=== PATIENT | male | born 1960 | race Caucasian/White ===

== ENCOUNTER 2024-01-27 08:48 | Outpatient (CLI) | payer BC, SELFPAY ==
--- NOTE | ~2024-01-27 | XR_ITS ---
Lumbosacral Spine: AP and lateral views Clinical History: Pain Findings: The normal lordotic curve is maintained. The vertebral bodies and posterior elements are i ntact. The intervertebral disc spaces are preserved. The sacroiliac joints are normally outlined. Impression: No significant abnormality. Reviewed, dictated and finalized at [facility]. Impression: No significant abnormality.
== END 2024-01-27 08:49 ==
PROVIDERS: PCP Physician Assistant; Visit Provider Physician Assistant
DX: M54.50 Low back pain, unspecified (principal); M25.561 Pain in right knee; M25.562 Pain in left knee
CPT/HCPCS: 72100; 73562

== ENCOUNTER 2024-04-06 08:28 | Outpatient (CLI) | payer BC, SELFPAY ==
--- NOTE | 2024-04-06 | EST_ITS ---
Patient Info Name: Ross Persaud Age: 63 years : 1960 Gender: Male Ht: 68 in Wt: 221 lbs BSA: 2.23 m2 HR: 74 bpm BP: 141 / 88 mmHg Heart Rhythm: Sinus Rhythm Exam Date: 04/06/2024 9:11 AM Exam Location: Echo Lab Patient Status: Outpatient Admit Date: 04/06/2024 Staff Ordering Physician: Ervin, Charlotte YODER Attending Provider: Ervin, Charlotte YODER Exercise Technologist: Katharine Blevins CT Exercise Physician: Payam Lazo DO Exam Type: CA stress raquel w NM Study Info Indications R06.09 - Other forms of dyspnea A regadenoson stress test was performed. Summary 1. 1. Negative lexiscan stress test for ischemic ST changes by ECG criteria. 2. 2. Stable hemodynamics throughout the test. 3. 3. Nuclear scan to follow and will be reported separately. Please correlate with it. 4. 4. Patient informed of the above results. Protocol: Lexiscan Stress ECG Details Stage: REST Duration (min): 1 min : 4 sec HR (bpm): 78 SBP (mmHg): 141 DBP (mmHg): 88 Stage: REST Duration (min): 1 min : 58 sec HR (bpm): 74 SBP (mmHg): 141 DBP (mmHg): 88 Stage: REST Duration (min): 7 min : 15 sec HR (bpm): 76 SBP (mmHg): 141 DBP (mmHg): 88 Stage: STAGE 1 Duration (min): 1 min : 0 sec HR (bpm): 96 SBP (mmHg): 124 DBP (mmHg): 85 Stage: RECOVERY Duration (min): 1 min : 0 sec HR (bpm): 89 SBP (mmHg): 124 DBP (mmHg): 85 Stage: RECOVERY Duration (min): 2 min : 0 sec HR (bpm): 81 SBP (mmHg): 124 DBP (mmHg): 85 Stage: RECOVERY Duration (min): 3 min : 0 sec HR (bpm): 81 SBP (mmHg): 135 DBP (mmHg): 81 Stage: RECOVERY Duration (min): 3 min : 6 sec HR (bpm): 80 SBP (mmHg): 135 DBP (mmHg): 81 Rest HR: 76 bpm Peak HR: 103 bpm Rest Sys BP: 141 mmHg Peak Sys BP: 135 mmHg Max Pred HR: 158 bpm % Max Pred HR: 65 % Target HR: 134 bpm Max RPP: 13,905 bpm*mmHg Termination Reason: Completed protocol Cardiac Symptoms: Shortness of breath Total Time: 1 min : 0 sec Rest Holden BP: 88 mmHg Peak Holden BP: 81 mmHg Total Dose: 0.4 mg Resting ECG Sinus rhythm. Stress ECG No ST changes. Arrhythmias None. Report Signatures
--- NOTE | ~2024-04-06 | NM_ITS ---
EXAMINATION: NM raquel stress w perfusion DATE: 04/07/2024 10:28 INDICATION: Dyspnea on exertion. TECHNIQUE: Rest images were obtained following intravenous administration of 10.3 mCi Tc99m tetrofosm in (Myoview). The patient was infused intravenously with Lexiscan (regadenoson). Then, 33 mCi Tc99m t etrofosmin (Myoview) was administered intravenously, and stress images were obtained. Data was recons tructed into short axis and horizontal and vertical long axis SPECT images. Gated SPECT images were a lso obtained. COMPARISON: None. FINDINGS: There is no definite reversible or fixed perfusion abnormality to suggest ischemia or infar ction. There is no segmental wall motion abnormality. Left ventricular ejection fraction measures 6 8%. IMPRESSION: 1. No definite ischemia or infarct. 2. Normal left ventricular ejection fraction measuring 68%. Reviewed, dictated and finalized at location A.
== END 2024-04-06 08:29 | disposition home or self-care (01) ==
PROVIDERS: PCP Physician Assistant; Visit Provider Physician Assistant
DX: R06.09 Other forms of dyspnea (principal)
CPT/HCPCS: 78452; 93017; A9502; J2785

== ENCOUNTER 2024-12-21 01:39 | Inpatient (IN) | payer BC, SELFPAY ==
[2024-12-21] VITALS (16 sets, daily range): BP systolic 83–170; BP diastolic 60–98; PULSE 82–117; RESP 13–30; TEMP 36.4–38.6; O2SAT 92–98; BMI 33.2; BMI 34.4
--- NOTE | ~2024-12-21 | XR_ITS ---
EXAMINATION: XR chest 1V portable DATE: 12/23/2024 05:44 INDICATION: Respiratory failure. Pulmonary edema. TECHNIQUE: frontal view of the chest was obtained. COMPARISON: Chest radiograph dated 12/22/[address] dated 12/21/2024 FINDINGS: Again seen is decreased right lung volume with diffuse hazy opacity in the mid and upper lung zone co nsistent with elevation the right hemidiaphragm and moderate-sized right pleural effusion which also tracks along the mediastinum and over the apex. Small left pleural effusion. Opacities at the bilater al lung bases which could represent associated atelectasis or pneumonia. No pneumothorax. Cardiac marcos houette partially obscured but does not appear enlarged for AP technique. Moderate thoracic spondylos is. IMPRESSION: 1. Unchanged moderate sized right and small left pleural effusions with associated basilar atelectasi s versus pneumonia. Reviewed, dictated and finalized at location A. IMPRESSION: 1. Unchanged moderate sized right and small left pleural effusions with associa nelson basilar atelectasis versus pneumonia.
--- NOTE | ~2024-12-21 | XR_ITS ---
Portable chest x-ray Comparison: 12/21/2024 Clinical History: Hypoxia Findings: Right IJ line in place. Small right pleural effusion present. Questionable minimal left pl eural effusion. Possible minimal bibasilar edema/atelectasis. Cardiomediastinal silhouette is stable . Bones and soft tissues are unremarkable. Impression: Small right pleural effusion and questionable minimal bibasilar pulmonary edema. Support line, as above. Reviewed, dictated and finalized at location M. Impression: Small right pleural effusion and questionable minimal bibasilar pulmonary edema . Support line, as above.
--- NOTE | ~2024-12-21 | XR_ITS ---
XR chest 1V portable Ordering provider: Bruna Eugene DO History: 63 years Male with . shortness of breath . Comparison: December 21, 2024 FINDINGS: MEDIASTINUM: The cardiac silhouette is not enlarged. LUNGS: No effusions or pneumothorax. Slightly improved aeration of the lower lobes with persistent re sidual opacification in both lung bases. OTHER: No free air under the diaphragm. Degenerative the spine. IMPRESSION: Bibasilar atelectasis versus pneumonia. Reviewed, dictated and finalized at location A.
--- NOTE | ~2024-12-21 | XR_ITS ---
[id number] Ordering provider: Donn Tillman MD History: 63 years Male with . POST THORA . Comparison: None. FINDINGS: MEDIASTINUM: The cardiac silhouette is not enlarged. LUNGS: No effusions or pneumothorax. Bilateral opacification in the lung bases suggestive of atelecta sis versus pneumonia. OTHER: No free air under the diaphragm. Degenerative spine. IMPRESSION: Bilateral basal pneumonia. Reviewed, dictated and finalized at location A. IMPRESSION: Bilateral basal pneumonia.
--- NOTE | ~2024-12-21 | US_ITS ---
EXAM: ABDOMEN ULTRASOUND HISTORY: Evaluation for acute cholecystitis COMPARISON: Reference is made to a contrast-enhanced CT examination of the abdomen and pelvis perform ed approximately 8 hours earlier which demonstrated acute pancreatitis. FINDINGS: LIVER: The liver is unremarkable in echogenicity and size. The portal vein is patent, demonstrating hepatopedal flow. GALLBLADDER: No stones are identified within the gallbladder, which is distended, with surrounding in tra-abdominal fluid (consistent with patient's current diagnosis of acute pancreatitis). BILE DUCTS: Common bile duct measures 3.7mm. PANCREAS: Limited evaluation of the pancreas secondary to overlying bowel gas VASCULATURE : The IVC is patent. What is designated as the superior mesenteric artery is also patent. Peak systolic velocity of the 181 cm/s with normal waveforms. The superior mesenteric vein is not demonstrated on the submitted images, which demonstrated signific ant surrounding inflammatory change on earlier CT examination. IMPRESSION: Gallbladder distention with intra-abdominal fluid, related to patient's acute pancreatitis, rather th an designated gallbladder disease. Requested evaluation of the superior mesenteric artery is also patent, as detailed above. Reviewed, dictated and finalized at location A. IMPRESSION: Gallbladder distention with intra-abdominal fluid, related to patient's acute p ancreatitis, rather than designated gallbladder disease. Requested evaluation of the superior mesenteric artery is also patent, as ravi led above.
--- NOTE | ~2024-12-21 | CT_ITS ---
CLINICAL INDICATION: Shortness of breath COMPARISON: Plain film evaluation of the chest performed approximately 8 hours earlier. TECHNIQUE: Multiple contiguous axial images of the chest was performed without the administration of intravenous contrast. This CT examination was performed utilizing dose reduction techniques. DLP: 377 mGy-cm FINDINGS/OBSERVATIONS: LUNG: Large right-sided pleural effusion with adjacent consolidation. Small left-sided pleural effusion with adjacent atelectasis. HEART: The heart is of normal size, with a small pericardial effusion. MEDIASTINUM: No pathologically enlarged or morphologically suspicious lymph nodes are identified within the medias tinum, bilateral axilla, within the soft tissues of the anterior chest wall. SOFT TISSUES OF THE CHEST: Unremarkable. BONES OF THE CHEST: No acute fracture. No lytic or blastic lesions are identified. UPPER ABDOMEN: Findings consistent with acute pancreatitis. Gallbladder distention. Left renal calculi. The inferior vena cava is slit like consistent with severe hypovolemia. IMPRESSION: Large right-sided pleural effusion with adjacent consolidation. Small left-sided pleural effusion with adjacent atelectasis. Additional findings consistent with severe hypovolemia. Reviewed, dictated and finalized at location A.
--- NOTE | ~2024-12-21 | US_ITS ---
EXAMINATION: US thoracentesis DATE: 12/21/2024 17:50 INDICATION: Right pleural effusion TECHNIQUE: The procedure and its risks and benefits were discussed with the patient. Potential risks discussed included bleeding, infection, and pneumothorax. The patient understood the risks and agreed to proceed. The skin was prepped and draped in sterile fashion. 1% lidocaine was used for local anes thesia. Under ultrasound guidance, a 5 Fr catheter with trochar was advanced into the right pleural e ffusion. Fluid was aspirated. The catheter was removed, and a dressing was applied. There were no imm ediate complications. FINDINGS: Ultrasound images demonstrate a small right pleural effusion and the catheter within the fluid. IMPRESSION: 1. Successful ultrasound-guided thoracentesis yielding 650 mL of dark milzrdsm-rnlxyd-axznpgm fluid. Reviewed, dictated and finalized at location A. IMPRESSION: 1. Successful ultrasound-guided thoracentesis yielding 650 mL of dark brownish -maroon-colored fluid.
--- NOTE | ~2024-12-21 | XR_ITS ---
XR chest 1V portable 12/24/2024 05:32 Indication: Respiratory failure. Pulmonary edema. Procedure: AP portable chest Comparison: Comparison to multiple prior studies sequentially, with oldest reviewed study dated 12/21. Findings: Cardiomegaly. Mild interstitial edema. Moderate right and small left pleural effusions. Sha llow inspiration. Central line tip in the SVC near the cavoatrial junction. Impression: 1: Mild interstitial edema with bilateral pleural effusions, right greater than left. Reviewed, dictated and finalized at location A. Impression: 1: Mild interstitial edema with bilateral pleural effusions, right greater than left.
--- NOTE | ~2024-12-21 | CT_ITS ---
EXAMINATION: CT chest abdomen pelvis wo con DATE: 12/24/2024 9:53 CDT INDICATION: Pancreatitis. Small bowel obstruction. TECHNIQUE: Computed tomography (CT) of the chest, abdomen, and pelvis was performed without intraveno us contrast. The dose-length product was 1292.70 mGy-cm. Automated exposure control and iterative rec onstruction technique were employed. COMPARISON: CT dated 12/21/2024 FINDINGS: CHEST CT: Small pleural effusions. Patchy groundglass opacities in the lungs, consistent with pneumonia. There is compressive atelectasis by the effusions. No pneumothorax. ABDOMEN/PELVIS CT: There is ascites. Significant progression of pancreatitis with abnormal mesenteric fluid developing a long the margin of the liver and surrounding the stomach. Cannot exclude developing abscess without c ontrast administration. There is dilated small bowel containing fluid which may represent ileus or pa rtial obstruction. The colon is relatively decompressed. There is atherosclerosis of the aorta. No fr ee air. There is a left renal cyst. IMPRESSION: 1. Significant progression of pancreatitis with developing fluid in the mesentery as well as along th e margin of the liver and stomach. Cannot exclude underlying abscess or pancreatic necrosis without c ontrast administration. 2: Patchy groundglass opacities in the lungs, consistent with pneumonia. Moderate pleural effusions w ith underlying compressive atelectasis. 3: Dilated small bowel with air-fluid levels which may represent obstruction or ileus. Reviewed, dictated and finalized at location A. IMPRESSION: 1. Significant progression of pancreatitis with developing fluid in the mesente ry as well as along the margin of the liver and stomach. Cannot exclude underly ing abscess or pancreatic necrosis without contrast administration. 2: Patchy groundglass opacities in the lungs, consistent with pneumonia. Modera te pleural effusions with underlying compressive atelectasis. 3: Dilated small bowel with air-fluid levels which may represent obstruction or ileus.
--- NOTE | ~2024-12-21 | XR_ITS ---
Portable chest x-ray Comparison: 01/28/2004 Clinical History: Shortness of breath Findings: Probable minimal bibasilar pulmonary edema/atelectasis. Elevation right hemidiaphragm note d. Cardiomediastinal silhouette is stable. Bones and soft tissues are unremarkable. Impression: Probable minimal bibasilar pulmonary edema/atelectasis. Elevation right hemidiaphragm. Reviewed, dictated and finalized at location . Impression: Probable minimal bibasilar pulmonary edema/atelectasis. Elevation right hemidiaphragm.
--- NOTE | ~2024-12-21 | CT_ITS ---
CT of the Abdomen and Pelvis: Indication: Abdominal pain Technique: 2.5 mm axial scans were obtained through the abdomen and pelvis following intravenous adm inistration of 100 cc of Omnipaque 350. Dose reduction technique was used on this scan by utilizing a utomated exposure control and iterative reconstruction technique. The dose-length product (DLP) was 1 051.69 mGy-cm. Findings: Scans through the lung bases demonstrate small right pleural effusion and minimal left ple ural effusion with mild bibasilar pulmonary edema/atelectasis. There is extensive peripancreatic fluid and inflammatory change, compatible with acute pancreatitis. Fluid extends into the right lower quadrant mildly. There is gallbladder wall thickening, nonspecific , possibly reactive. There is extensive soft tissue thickening or inflammatory change/fluid surroundi ng the SMV and main portal vein in particular.. The liver, spleen, adrenal glands are within normal limits. 3 mm nonobstructing right renal stone pre sent. There is a 6 cm left renal cyst with an area of apparent focal mural nodularity measuring 1.3 c m (axial image 62). There are atherosclerotic calcifications of the aorta. No lymphadenopathy. No bowel obstruction or bowel wall thickening. There is no evidence to suggest acute appendicitis. Images through the pelvis were performed. Urinary bladder unremarkable. No pelvic mass seen. Trace pe lvic ascites present. Impression: Findings compatible with acute pancreatitis, as detailed above. Extensive apparent soft tissue thickening or inflammatory change surrounding the SMV and main portal vein in particular. Superimposed/associated vasculitis is a consideration. No pseudoaneurysm/aneurysm identified on this exam. Small right pleural effusion and minimal left pleural effusion with mild bibasilar pulmonary edema/at electasis. Gallbladder wall thickening is likely reactive. 6 cm left renal cyst with 1.3 cm area of mural nodularity. Neoplastic lesion is not excluded. Pre and postcontrast renal MR advised to best assess for enhancing soft tissue lesion. Reviewed, dictated and finalized at location M. Impression: Findings compatible with acute pancreatitis, as detailed above. Extensive apparent soft tissue thickening or inflammatory change surrounding th e SMV and main portal vein in particular. Superimposed/associated vasculitis is a consideration. No pseudoaneurysm/aneurysm identified on this exam. Small right pleural effusion and minimal left pleural effusion with mild bibasi lar pulmonary edema/atelectasis. Gallbladder wall thickening is likely reactive. 6 cm left renal cyst with 1.3 cm area of mural nodularity. Neoplastic lesion is not excluded. Pre and postcontrast renal MR advised to best assess for enhanci ng soft tissue lesion.
--- NOTE | ~2024-12-21 | XR_ITS ---
XR chest port-a-cath/central Ordering provider: Bruna Eugene DO History: 63 years Male with . cvc placement . Comparison: December 21, 2024 FINDINGS: MEDIASTINUM: The cardiac silhouette is slightly enlarged. Right central line with the tip overlying s uperior vena cava. LUNGS: No effusions or pneumothorax. Bibasilar opacification suggestive of pneumonia. Underlying fibr otic changes highly suggestive. OTHER: No free air under the diaphragm. IMPRESSION: Bibasilar pneumonia. Reviewed, dictated and finalized at location A. IMPRESSION: Bibasilar pneumonia.
--- NOTE | 2024-12-21 01:43 | ECG_ITS ---
Test Date: 2024-12-21 01:43:40 Measurements Intervals Marked [place] Rate: 92 P: 43 CO: 180 QRS: -15 QRSD: 97 T: 52 QT: 358 QTc: 444 Interpretive Statements SINUS RHYTHM POSSIBLE LEFT ATRIAL ENLARGEMENT INCOMPLETE RIGHT BUNDLE BRANCH BLOCK MINIMAL Q WAVES- HIGH LATERAL LEADS BASELINE ARTIFACT- II, III, AVR, AVL, AVF, V1-V6 BORDERLINE ECG No previous ECG available for comparison Electronically Signed On 12-21-2024 07:57:20 CDT by Payam Lazo D.O.
[2024-12-21 02:08] LABS: Hemoglobin 15.1 g/dL (14.0-18.0); Mean Corpuscular HGB Conc 32.8 g/dl (32-36); Mean Corpuscular Hemoglobin 29.5 pg (26-34); Mean Corpuscular Volume 89.8 fl (80-100); Mean Platelet Volume 9.6 fl (7.4-10.4); Platelet Count Result 258 k/mm3 (150-375); Red Blood Count 5.12 M/mm3 (4.6-6.20); Red Cell Distribution Width 12.5 % (11.5-14.5)
[2024-12-21 02:31] LABS: Alanine Aminotransferase 493 U/L (6-50); Albumin Level 4.8 g/dL (3.5-5.1); Alkaline Phosphatase 108 U/L (38-126); Anion Gap 13 mmol/L (4-12); Aspartate Amino Transferase 512 U/L (17-59); Bilirubin,Total 0.8 mg/dL (0.2-1.3); Blood Urea Nitrogen 25 mg/dL (9-20); Calcium 8.6 mg/dL (8.4-10.2); Carbon Dioxide 24 mmol/L (22-30); Chloride 104 mmol/L (98-107); Estimated CRCL calculation 81 ml/min; Estimated Glomerular Filt Rate > 60; Glucose 218 mg/dL (65-110); Magnesium 2.2 mg/dL (1.6-2.3); Potassium 3.9 mmol/L (3.4-5.0); Sodium 141 mmol/L (137-145)
[2024-12-21 02:32] LABS: Band Neutrophils Percent 11 % (0-6); Lymphocytes Absolute Manual 0.84 K/mm3 (1.1-4.5); Monocytes Absolute Manual 1.05 K/mm3 (0.1-0.90); Monocytes Percent Manual 5 % (3-9); Neutrophils Absolute Manual 19.11 K/mm3 (1.3-6.7); Neutrophils Percent Manual 80 % (46-73); Platelet Estimate Adequate (Adequate); Schistocytes None Seen; Total Cells Counted 100
--- NOTE | 2024-12-21 02:38 | ED.GENADULT ---
HPI - General Adult General Chief complaint: Nausea/Vomiting/Diarrhea Stated complaint: n/v, sob History of Present Illness HPI narrative: Patient is a 63-year-old male who presents to the emergency department this evening complaining of sudden onset abdominal pain, nausea and vomiting which started around 8:30 p.m. last night. Patient states that he feels as though his abdomen is very distended which is unusual for him. Patient states that he had multiple episodes of vomiting and then shortly after that he started to have shortness of breath. Patient admits that he does have asthma and uses CPAP at home at night who patient states that his abdomen is usually never this distended. Denies any history of any abdominal surgeries, denies any alcohol abuse, history of pancreatitis. Patient denies sick contacts at home, any recent illness, fevers or chills. Denies any active chest pain. No additional symptoms or concerns at this time. Related Data Allergies Allergy/AdvReac Type Severity Reaction Status Date / Time Penicillins Allergy Unknown Verified 12/12/14 14:59 penicillin Allergy Unknown Uncoded 02/27/03 12:39 Review of Systems Review of Systems: All systems are reviewed and are negative unless stated otherwise in the HPI. [facility] Family History Family History Sibling Family history of thyroid disease Patient's brother is in good health Mother Patient's mother is in good health Father Carcinoma of colon Social History Social History Smoking status: Never smoker Alcohol intake: current Exam Narrative: General: Alert, awake, afebrile, in moderate distress secondary to pain. HEENT: PERRL, no rhinorrhea, no post nasal drip, oropharynx clear. Neck: Trachea midline, no JVD, no lymphadenopathy. Cardiovascular: Regular rate and rhythm, no murmurs, rubs or gallops, no peripheral edema. Respiratory: Clear to auscultation bilaterally, no tachypnea, no wheezing, no rhonchi, no rubs, no respiratory distress. Abdomen: Hard, mild tenderness, distended, no rebound, no guarding, no peritoneal signs. Musculoskeletal: No joint swelling or deformity, normal muscle tone. Skin: No rashes or petechia, no signs of infection. Psychiatric: Alert and oriented, normal behavior and judgment for situation. Neurological: Alert and oriented to person, place, and time. Follows all commands. No focal deficits, speech is clear and fluent. Course Vital Signs Vital signs: Vital Signs Temperature 98.5 F 12/21/24 01:40 Pulse Rate 92 12/21/24 01:40 Respiratory Rate 13 12/21/24 01:40 Blood Pressure 145/83 H 12/21/24 01:40 Pulse Oximetry 96 12/21/24 01:40 Oxygen Delivery Room Air 12/21/24 01:40 Temperature 98.5 F 12/21/24 01:49 Pulse Rate 88 12/21/24 03:59 Respiratory Rate 18 12/21/24 03:59 Blood Pressure 157/91 H 12/21/24 03:59 Pulse Oximetry 98 12/21/24 03:59 Oxygen Delivery Nasal Cannula 12/21/24 03:31 Oxygen Flow Rate 2 12/21/24 03:31 Medical Decision Making MDM Narrative Medical decision making narrative: The patient was evaluated by myself in the emergency department. History is obtained from patient who is an independent historian and physical exam was performed. External medical records were reviewed at this time. IV was established and pertinent tests were ordered. Patient was administered 4 mg of IV morphine for pain and 4 mg IV Zofran for nausea. On repeat assessment, patient continues to have pain and at this time was administered 0.5 mg of IV Dilaudid with improvement of his symptoms. Patient was also administered 1 L IV fluid bolus with normal saline. EKG was obtained which revealed sinus rhythm rate of 92 beats per minute, no evidence of acute ischemia. EKG was independently interpreted by me and is currently pending official cardiology read. Laboratory results obtained revealing a white blood cell count of 21, AST of 512, ALT of 493, and a lipase of 20,510. Imaging studies obtained included CT abdomen and pelvis with IV contrast which was independently interpreted by me revealing: Acute pancreatitis with pancreatic edema and peripancreatic stranding/free fluid, no evidence of peripancreatic necrosis or pseudocyst. Distended edematous gallbladder with pericholecystic edema, no CT evidence of cholelithiasis, no bowel obstruction, patchy ground-glass nodular infiltrates which could reflect infection/inflammation and or aspiration, small right pleural effusion. At this time, patient was administered a 2nd IV fluid bolus with normal saline and continued with maintenance fluids with LR rate of 200 cc/hour. Patient was started on IV antibiotics with levofloxacin to cover him for pneumonia given his penicillin allergy. Differential diagnosis considerations include acute pancreatitis, cholecystitis, peptic ulcer disease, bowel obstruction. Comorbidities impacting this visit include none. I have evaluated and discussed social determinants of health with the patient that could potentially impact subsequent diagnosis and treatment plans. On repeat assessment of the patient, reevaluation revealed that the patient is doing well and is in no acute distress. Patient symptoms have improved since he arrived to our emergency department. Repeat vital signs were all reviewed and noted to be stable. Differential diagnosis and treatment plan were discussed with the patient at bedside. Patient agrees with discussion and after shared medical decision making agrees with admission. All questions were answered to the patient's satisfaction. Case was discussed with the on-call hospitalist Dr. Eugene at 0415 and she accepted admission. P.r.n. pain medication and nausea medications were obtained at this time. Per her request, a right upper quadrant ultrasound was ordered at the time to be performed this morning. Vital Signs Vital Signs: Vital Signs Temperature 98.5 F 12/21/24 01:40 Pulse Rate 92 12/21/24 01:40 Respiratory Rate 13 12/21/24 01:40 Blood Pressure 145/83 H 12/21/24 01:40 Pulse Oximetry 96 12/21/24 01:40 Oxygen Delivery Room Air 12/21/24 01:40 Temperature 98.5 F 12/21/24 01:49 Pulse Rate 88 12/21/24 03:59 Respiratory Rate 18 12/21/24 03:59 Blood Pressure 157/91 H 12/21/24 03:59 Pulse Oximetry 98 12/21/24 03:59 Oxygen Delivery Nasal Cannula 12/21/24 03:31 Oxygen Flow Rate 2 12/21/24 03:31 Lab Data 12/21/24 01:53 12/21/24 01:53 Labs: Lab Results 12/21/24 Range/Units 01:53 WBC 21.0 H (4.5-10.0) K/mm3 RBC 5.12 (4.6-6.20) M/mm3 Hgb 15.1 (14.0-18.0) g/dL Hct 46.0 (42.0-52.0) % MCV 89.8 (80-100) fl MCH 29.5 (26-34) pg MCHC 32.8 (32-36) g/dl RDW 12.5 (11.5-14.5) % Plt Count 258 (150-375) k/mm3 MPV 9.6 (7.4-10.4) fl Immature Gran % (Auto) Not Reportable Neut % (Auto) Not Reportable Lymph % (Auto) Not Reportable [place] % (Auto) Not Reportable Eos % (Auto) Not Reportable Baso % (Auto) Not Reportable Lymph # (Auto) Not Reportable [place] # (Auto) Not Reportable Eos # (Auto) Not Reportable Baso # (Auto) Not Reportable Abs Immat Gran (auto) Not Reportable Absolute Neuts (auto) Not Reportable Absolute Nucleated RBC Not Reportable Total Counted 100 Neutrophils % (Manual) 80 H (46-73) % Band Neutrophils % 11 H (0-6) % Lymphocytes % (Manual) 4.0 L (18-44) % Monocytes % (Manual) 5 (3-9) % Nucleated RBC % Not Reportable Abs Neuts (Manual) 19.11 H (1.3-6.7) K/mm3 Abs Lymphs (Manual) 0.84 L (1.1-4.5) K/mm3 Abs Monocytes (Manual) 1.05 H (0.1-0.90) K/mm3 Platelet Estimate Adequate (Adequate) Schistocytes None seen Sodium 141 (137-145) mmol/L Potassium 3.9 (3.4-5.0) mmol/L Chloride 104 (98-107) mmol/L Carbon Dioxide 24 (22-30) mmol/L Anion Gap 13 H (4-12) mmol/L BUN 25 H (9-20) mg/dL Creatinine 0.97 (0.7-1.3) mg/dL Estim Creat Clear Calc 81 ml/min Estimated GFR > 60 (59 - ) Glucose 218 H (65-110) mg/dL Calcium 8.6 (8.4-10.2) mg/dL Magnesium 2.2 (1.6-2.3) mg/dL Total Bilirubin 0.8 (0.2-1.3) mg/dL AST 512 H (17-59) U/L ALT 493 H (6-50) U/L Alkaline Phosphatase 108 (38-126) U/L Total Protein 8.0 (6.3-8.2) g/dL Albumin 4.8 (3.5-5.1) g/dL Lipase 44942 H (23-300) U/L Discharge Plan Discharge Clinical Impression: Acute pancreatitis, Transaminitis, Aspiration pneumonia, Leukocytosis Patient Disposition: Still a Patient Condition: Improved Patient Language: Upper Sorbian Follow-up/Referrals: Ervin,BEBA Porter [Primary Care Provider] - Time of Disposition: 03:58
[2024-12-21] MEDS: SODIUM CHLORIDE 0.9% IV 1,000 ML 999 ML IV CONT ×2 (02:58→03:57)
[2024-12-21] MEDS: MORPHINE SULFATE (*CRX) 4 MG/ML INJ IV PUSH (02:59)
[2024-12-21] MEDS: ONDANSETRON INJ 4 MG/2 ML VIAL IV PUSH ×2 (02:59→18:42)
[2024-12-21] MEDS: HYDROmorphone HCL INJ (*CRX) 2 MG/ML VIAL 0.5 MG IV PUSH ×7 (03:11→22:53)
--- OUTSIDE RECORDS SUMMARY | 2024-12-21 03:20 | XMS_ITS | CONTINUITY OF CARE DOCUMENT ---
Author Name medina haney Address Unknown Organization [facility] Address [id number] [place] [address] [address] [place] [address] Phone [phone] Care Team Providers Care Parking Inspector Name Role Phone Adelaida Cm MD Unavailable Adelaida Cm MD Unavailable PROBLEMS Condition Status Date Provider Notes HYPERCHOLESTEROLEMIA active ? Adelaida Cm MD HTN ESSENTIAL active ? Adelaida Cm MD ASTHMA active Adelaida Cm MD Family History Coronary Hear t Disease male < 55: active ? Adelaida Cm MD Family History Coronary Hear t Disease male < 55: active ? Adelaida Cm MD Subarachnoid hemorrhage active Adelaida Cm MD ENCOUNTERS Date Type Provider Location Encounter Diag nosis - In-person encounter Office Visit Adelaida Cm MD [place] [facility] Subarachnoid hemorrhage - In-person encounter Office Visit Adelaida Cm MD [place] [facility] Family History Coronary Heart Disease male < 55:Family History Coronary Heart Disease male < 55: - In-person encounter Office Visit Adelaida Cm MD [place] [facility] HYPERCHOLESTEROLEMIAHTN ESSENTIALASTHMA VITAL SIGNS Date Observation Value Provider blood pressure, diastolic 100 mm[Hg] Jose Cerda blood pressure, systolic 150 mm[Hg] Ced Cerda pulse rate 86 /min Niru martinez oxygen saturation, oximetry 98 % Niru Cerda respiratory rate E&M 16 /min Niru trujillo Body Mass Index (Ratio) 33.30 kg/m2 Julito Cerda weight E&M 219 [lb_av] Niru martinez Body Mass Index (Ratio) 34.06 kg/m2 Marcia Jo blood pressure, diastolic 85 mm[Hg] An eatmaddy Jo blood pressure, systolic 143 mm[Hg] Ane atriyina Jo pulse rate 76 /min Aneatris Brown oxygen saturation, oximetry 97 % Aneatris Sandro respiratory rate E&M 17 /min Aneatri s [facility] weight E&M 224 [lb_av] Marisa Jo blood pressure, diastolic 96 mm[Hg] Billy Rosario RN blood pressure, systolic 142 mm[Hg] Masood Rosario RN pulse rate 72 /min Masood Rosario RN oxygen saturation, oximetry 97 % Masood Rosario RN respiratory rate E&M 16 /min Masood casillas RN Body Mass Index (Ratio) 34.03 kg/m2 Masood Rosario RN weight E&M 223 [lb_av] Masood Rosario RN height E&M 68 [in_i] Masood Rosario RN ALLERGIES Allergy Name Onset Date Reaction Criticality Status PENICILLIN Low Criticality active RESULTS Date Observation Value Provider Reference Range Interpretation Location 3 triglyceride, serum, fasting 213 mg/dL Masood Rosario RN 3 HDL cholesterol, serum 35 mg/dL Masood Rosario RN 3 LDL cholesterol, serum 165 mg/dL Masood Rosario RN 3 cholesterol, serum 243 mg/dL Masood Rosario RN HISTORY OF MEDICATION USE Medication Status Instructions Dates Provider Indications Com ments VITAMIN D (ERGOCALCIFERO L) CAPSULE active take one pill a day Niru Cerda LISINOPRIL 10 MG ORAL TABLET active take one pill a day Niru Cerda PROAIR HFA AEROSOL SOLUTION active 4 puffs upto 4 times a day as needed Adelaida Cm MD FLOVENT HFA 220 MCG/ACT INHALATION AEROSOL completed 2 puffs BID - Niru Cerda LISINOPRIL 5 MG ORAL TABLET completed ONE TAB. DAILY - Anejorge luis Jo PRAVACHOL 40 MG ORAL TABLET active ONE TAB. DAILY Adelaida Cm MD ASPIRIN 81 MG ORAL TABLET completed ONE TAB. DAILY - Niru Cerda SOCIAL HISTORY Date Observation Value Provider social history E&M Marital Statu s: L zenon with family/friends E thnicity: Smoking History: P attaina has never smoked. Adelaida Cm MD smoking status Never smoker Niru cedeno drug use no Masood Rosario RN passive cigarette sm carina exposure no Masood Rosario RN smoking status never smoker Masood Rosario RN social history E&M Marital Statu s: L zenon with family/friends E thnicity: Masood Rosario RN social history reviewed E&M reviewed Masood Rosario RN physical exercise, frequency, days per week yes [employer] caffeine use, averag e drinks per day yes [employer] alcohol use, average drinks per day social basis only [employer] smoking status Non-smoker [employer] MENTAL STATUS Date Observation Value Provider assessment of judgme nt and insight E&M Alert and oriented to time, place and person. Mood and affect are normal. Masood Rosario RN FAMILY HISTORY Family Member Condition Mother Family History Unkno wn Father Family History Coron bhavin Heart Disease male < 55: Other Family Member Family History Coron bhavin Heart Disease male < 55: INSURANCE PROVIDERS Payer name Policy type / Coverage type [place] [employer] party ID [facility] Commercial insurance comp any [id number] TREATMENT PLAN Date Name Performer [facility] Follow up To nathan Cm MD [facility] Follow up To nathan Cm MD [facility] Follow up To nathan Cm MD [facility] Follow up To nathan Cm MD follow up: H is updated medication list for this problem includes: Flovent Hfa 220 Mcg/act Aero (Fluticasone propionate hfa) ..... 2 puffs bid Proair Hfa Aers (Albuterol sulfate aers) ..... 4 puffs upto 4 times a day as needed Adelaida Cm MD follow up: T he following medications were removed from the medication list: Lisinopril 5 Mg Tabs (Lisinopril) ..... One tab. daily His updated medication list for this problem includes: Aspirin 81 Mg Tabs (Aspirin) ..... One tab. daily Orders: E KG (CPT-28185) BP today: 143/85 P rior BP: 142/96 (06/28/2012) Labs Reviewed: C hol: 243 (06/28/2012) HDL: 35 (06/28/2012) LDL: 165 (06/28/2012) T (06/28/2012) Adelaida Cm MD hypertension : H is updated medication list for this problem includes: Flovent Hfa 220 Mcg/act Aero (Fluticasone propionate hfa) ..... 2 puffs bid Proair Hfa Aers (Albuterol sulfate aers) ..... 4 puffs upto 4 times a day as needed Pulmonary Functions Reviewed: O 2 sat: 97 (06/28/2012) Adelaida Cm MD hypertension : O rders: E KG (CPT-[id number]) His updated medication list for this problem includes: Aspirin 81 Mg Tabs (Aspirin) ..... One tab. daily Lisinopril 5 Mg Tabs (Lisinopril) ..... One tab. daily Adelaida Cm MD hypertension : B P today: 142/96 Prior BP: / () His updated medication list for this problem includes: Pravachol 40 Mg Tabs (Pravastatin sodium) ..... One tab. daily Adelaida Cm MD HISTORY OF PROCEDURES Procedure Date Procedure Name Provider Procedure Notes S amadou SNOMED-CT: [id number] Physical Exam, Performed: Pulse Exam of Foot Adelaida Cm MD completed EKG Adelaida Cm MD completed SNOMED-CT: [id number] Current Medications Documented Adelaida Cm MD completed EKG Adelaida Cm MD completed EKG Adelaida Cm MD completed
--- OUTSIDE RECORDS SUMMARY | 2024-12-21 03:20 | XMS_ITS | Data Portability ---
Author Organization [facility], Main Office Address [address] [place] [address] Assessment Encounter Date Assessment Date Assessment LastModified by Organization Details LastModified Time 04/28/2023 04/28/2023 [id number] [email or web address] Not available 04/07 09:23:46 Plan of Treatment Reminders Order Date Submit Date Provider Last Modified By Organization Details Last Modified Time Details Appointments None recorded . Lab lipid panel, serum 023 04/28/20 [facility], [address] [place] [address], [facility], [place], [address], 3 14:58:59 CBC w/ auto diff 023 04/28/20 [facility], [address] [place] [address], [place], [address], 3 12:48:09 CMP, serum or plasma 023 04/28/20 [facility], [address] [place] [address], [place], [address], 3 14:59:00 TSH + free T4, serum 023 04/28/20 [facility], [address] [place] [address], [facility], [place], [address], 3 14:59:00 HbA1c (hemoglo bin A1c), blood 023 04/28/20 [facility], [address] [place] [address], [place], [address], 3 14:58:59 Referral None recorded . Procedures None recorded . Surgeries None recorded . Imaging XR, lumbar spine 023 04/28/20 23 [email or web address], [address] [facility] , [address], [place], [address], 4 09:37:27 XR, knee 023 04/28/20 [email or web address], [facility] , [address], [place], [address], 4 09:37:26 Medication Orders None recorded . Patient TargetsNo targets recorded. Patient InstructionsNo instructions recorded. Reason for Referral None Reported. Results Created Date Observation Date Name Description Value Unit Range Abnormal Flag Note LastModifiedBy Organization Detail LastModifiedTime 11/28/1911/28/2021 HEPAT IC FUNCT ION PANEL (7) protein, total 7.1 g/dL 6.0-8. 5 Not Available [facility] ([facility]) [address] [place], [address], 11/28/2021 08:21:03 11/28/19 22 11/28/2021 HEPAT IC FUNCT ION PANEL (7) albumin 5.0 g/dL 3.8-4. 9 above high normal Not Available [facility] ([facility]) [address] [place], [address], 11/28/2021 08:21:03 11/28/19 22 11/28/2021 HEPAT IC FUNCT ION PANEL (7) bilirubin, total 0.3 mg/dL 0.0-1. 2 Not Available [facility] ([facility]) [address] [place], [address], 11/28/2021 08:21:03 11/28/19 22 11/28/2021 HEPAT IC FUNCT ION PANEL (7) bilirubin, direct 0.13 mg/dL 0.00-0 .40 Not Available [facility] ([facility]) [address] [facility] [place], [address], 11/28/2021 08:21:03 11/28/19 22 11/28/2021 HEPAT IC FUNCT ION PANEL (7) alkaline phosphatase 72 IU/L 44-121 Not Available [facility] ([facility]) [address] [place], [address], 11/28/2021 08:21:03 11/28/19 22 11/28/2021 HEPAT IC FUNCT ION PANEL (7) AST (SGOT) 26 IU/L 0-40 Not Available [facility] ([facility]) [address] [place], [address], 11/28/2021 08:21:03 11/28/19 22 11/28/2021 HEPAT IC FUNCT ION PANEL (7) ALT (SGPT) 46 IU/L 0-44 above high normal Not Available [facility] ([facility]) [address] [facility] [place], [address], 11/28/2021 08:21:03 11/28/19 22 11/28/2021 LIPID PANEL W/ CHOL/ HDL RATIO cholesterol, total 178 mg/dL 100-19 9 Not Available [facility] ([facility]) [address] [place], [address], 11/28/2021 08:21:03 11/28/19 22 11/28/2021 LIPID PANEL W/ CHOL/ HDL RATIO triglyceride s 109 mg/dL 0-149 Not Available [facility] ([facility]) [address] [facility] [place], [address], 11/28/2021 08:21:03 11/28/19 22 11/28/2021 LIPID PANEL W/ CHOL/ HDL RATIO HDL cholesterol 44 mg/dL >39 Not Available [facility] ([facility]) [address] [place], [address], 11/28/2021 08:21:03 11/28/19 22 11/28/2021 LIPID PANEL W/ CHOL/ HDL RATIO VLDL cholesterol anneliese 20 mg/dL 5-40 Not Available [facility] ([facility]) [address] [facility], [place], [address], 11/28/2021 08:21:03 11/28/19 22 11/28/2021 LIPID PANEL W/ CHOL/ HDL RATIO LDL chol calc ([facility]) 114 mg/dL 0-99 above high normal Not Available [facility] ([facility]) [address] [facility], [place], [address], 11/28/2021 08:21:03 11/28/19 22 11/28/2021 LIPID PANEL W/ CHOL/ HDL RATIO comment: nonprofit financial controller Not Available [facility] ([facility]) [address] [facility], [place], [address], 11/28/2021 08:21:03 11/28/19 22 11/28/2021 LIPID PANEL W/ CHOL/ HDL RATIO T. chol/HDL ratio 4.0 ratio 0.0-5. 0 T. Chol/ HDL Ratio Men Women 1/2 Avg.R isk 3.4 3.3 Avg.R isk 5.0 4.4 2X Avg.R isk 9.6 7.1 3X Avg.R isk 23.4 11.0 Not Available [facility] ([facility]) [address] [facility], [place], [address], 11/28/2021 08:21:03 05/29/20 21 02/01/2019 diagn ostic colon oscop y (PROC ) No observ ation record ed. [id number] [facility] [address] [place], [address], 11/04/2022 18:22:03 Result Notes None recorded. Problems Name Problem SNOMED Code Status Onset Date Resolution Date Notes Provider Name and Address Organization Details Recorded Time Bilateral knee pain Active 2021 Not Available [facility] 03/01/202 3 18:21:05 Benign essential hypertensi on 9935921 Active 2021 Not Available [facility] 3 18:21:05 Blood glucose outside reference range 808665940 Active Not Available [facility] 3 18:21:05 Asthma 884765688 Active Not Available [facility] 3 18:21:05 Mixed hyperlipid emia 837865040 Active 2020 Not Available [facility] 3 18:21:05 Inspirator y wheezing 83159768 Active Not Available [facility] 3 18:21:05 Onychomyco sis 362377206 Active Not Available [facility] 3 18:21:05 Anxiety 63274838 Active 2021 Not Available [facility] 3 18:21:05 Cough 46606258 Active Not Available [facility] 3 18:21:05 Cervical radiculopa thy 31917303 Active Not Available [facility] 3 18:21:06 Essential hypertensi on 87430757 Active Not Available [facility] 3 18:21:06 Obstructiv e sleep apnea syndrome 79576305 Active 2021 Not Available [facility] 3 18:21:06 COVID-19 185056837 Active 2021 Not Available [facility] 3 18:21:06 Low back pain 207566507 Active 2022 THAIS Landin [address] [address], [place], [address] , [employer] [facility] [employer] 3 09:20:51 Pain of bilateral knee joints 8622976503607 04 Active 2022 THAIS Landin [address] [address], [place], [address] , [facility] [employer] 3 09:21:48 Notes:COVID-19 pos 08/05/22 Problem Notes None recorded. Procedures Surgical History Date Name Laterality Status Provider Name and Address Organization Details Recorded Time 9 Colonoscopy completed Not Available [facility] 11/05/19 18:20:19 Hernia Repair completed Not Available [facility] 11/04/2022 18:20:19 ENT Surgery completed Not Available [facility] 11/04/2022 18:20:19 Imaging Results Imaging Date Name Status LastModified by Organiz ation Details LastModified Time 02/01/2019 diagnostic colonoscopy (PROC) completed [id number] [facility] [address] [place], [address], 11/04/2022 18:22:03 Procedure Notes None recorded. Medical Equipment None Reported. Allergies Allergen ID Allergen Name Allergen Category Reaction Reaction Severity Criticality Documentation Date Start Date Code Code System Note Provider Name and Address Organization Details Recorded Time 37448 Product containin g penicilli n (product) medicatio n Not available Not available Not available 11/04/2022 14876 8001 SNOMED unkno wn. Not Available [facility] 18:22:01 Medications Name Sig Start Date Stop Date Status Note LastModified by Organization Details LastModified Time buspirone 5 mg tablet Take 1 tablet every day by oral route as directed. active Not Available Not Available No t Available Qvar 80 mcg/actuat ion Metered Aerosol oral inhaler 11/10 completed Not Available Not Available Not Available pravastati n 40 mg tablet TAKE 1 TABLET BY MOUTH ONCE DAILY active Not Available Not Available No t Available benzonatat e 200 mg capsule Take 1 capsule 3 times a day by oral route as needed. 11/10 completed Not Available Not Available Not Available citalopram 10 mg tablet TAKE 1 TABLET BY MOUTH ONCE DAILY IN THE EVENING active Not Available Not Available No t Available lisinopril 20 mg tablet TAKE ONE TABLET BY MOUTH ONCE DAILY 11/29 completed Not Available Not Available Not Available Medrol (Heron) 4 mg tablets in a dose pack take as directed 03/24 completed Not Available Not Available Not Available prednisone 20 mg tablet Take 2 tablets every day by oral route for 5 days. active Not Available Not Available No t Available Zithromax Z-Heron 250 mg tablet TAKE 2 TABLETS (500 MG) BY ORAL ROUTE ONCE DAILY FOR 1 DAY THEN 1 TABLET (250 MG) BY ORAL ROUTE ONCE DAILY FOR 4 DAYS 03/24 completed Not Available Not Available Not Available terbinafin e HCl 250 mg tablet TAKE ONE TABLET BY MOUTH ONCE DAILY 11/30 completed Not Available Not Available Not Available alprazolam 0.5 mg tablet take 1-2 tabs prior to MRI 10/26 completed Not Available Not Available Not Available citalopram 20 mg tablet Take 1 tablet by mouth once daily active Not Available Not Available No t Available pravastati n 10 mg tablet Take 1 tablet every day by oral route. 11/10 completed pt takes it when he rememb ers. Not Available Not Available Not Available lisinopril 10 mg tablet Take 1 tablet every day by oral route. 04/22 completed Not Available Not Available Not Available lisinopril 30 mg tablet Take 1 tablet by mouth once daily active Not Available Not Available No t Available pravastati n 20 mg tablet TAKE 1 TABLET BY MOUTH IN THE EVENING 05/25 completed Not Available Not Available Not Available albuterol sulfate HFA 90 mcg/actuat ion aerosol inhaler INHALE 2 PUFFS BY MOUTH EVERY 4 HOURS NEEDED active Not Available Not Available No t Available lisinopril 40 mg tablet TAKE 1 TABLET BY MOUTH ONCE DAILY active Not Available Not Available No t Available itraconazo le 100 mg capsule TAKE 2 CAPSULES BY MOUTH ONCE DAILY 05/31 completed Not Available Not Available Not Available lisinopril takes one belia 11/10 completed Not Available Not Available Not Available Symbicort 160 mcg-4.5 mcg/actuat ion HFA aerosol inhaler INHALE 2 PUFFS BY MOUTH TWICE DAILY active Not Available Not Available No t Available Dulera 200 mcg-5 mcg/actuat ion HFA aerosol inhaler Inhale 2 puffs twice a day by inhalatio n route. active Not Available Not Available No t Available Suprep Bowel Prep Kit 17.5 gram-3.13 gram-1.6 gram oral solution 05/30 completed Not Available Not Available Not Available albuterol sulfate 90 mcg/actuat ion breath activated powder inhaler Inhale 2 puffs every 4 hours by inhalatio n route as needed. 10/21 completed Not Available Not Available Not Available Fluzone Quad (PF) 60 mcg (15 mcg x 4)/0.5 mL IM syringe PHARMACIS T ADMINISTE RED IMMUNIZAT ION ADMINISTE RED AT TIME OF DISPENSIN G active Not Available Not Available No t Available Paxlovid 300 mg (150 mg x 2)-100 mg tablets in a dose pack 300 mg nirmatrel vir (two 150 mg tablets) with 100 mg ritonavir (one 100 mg tablet) with all three tablets taken together orally twice daily for 5 days. stop pravastat in for 7 days active Not Available Not Available No t Available Vitals Date Recorded Body mass index (BMI) Body height Oxygen saturation Oxygen saturation in Arterial blood by Pulse oximetry Heart rate Body temperature Body weight Systolic blood pressure Diastolic blood pressure Provider Name and Address Organization Details Last Updated DateTime 1 34.3 kg/m2 172.72 cm 97 % 97 % 77 /min 97.7 [degF] 847798. 44 g 120 mm[Hg] 80 mm[Hg] Not Available [facility] 3 18:20:38 Date Recorded Body mass index (BMI) Body height Oxygen saturation Oxygen saturation in Arterial blood by Pulse oximetry Heart rate Respiratory rate Body temperature Body weight Systolic blood pressure Diastolic blood pressure Provider Name and Address Organization Details Last Updated DateTime 2 34.9 kg/m2 172.72 cm 98 % 98 % 96 /min 16 /min 98 [degF] 190277. 81 g 144 mm[Hg] 88 mm[Hg] Not Available [facility] 3 18:20:38 Date Recorded Body height Oxygen saturation Oxygen saturation in Arterial blood by Pulse oximetry Heart rate Body temperature Body weight Systolic blood pressure Diastolic blood pressure Systolic blood pressure Diastolic blood pressure Systolic blood pressure Diastolic blood pressure Provider Name and Address Organization Details Last Updated DateTime 3 172.72 cm 98 % 98 % 91 /min 97.9 [degF] 198459. 43 g 136 mm[Hg] 80 mm[Hg] 110 mm[Hg] 80 mm[Hg] 112 mm[Hg] 80 mm[Hg] Not Available [facility] 3 18:20:38 Date Recorded Body height Body mass index (BMI) Body weight Body temperature Heart rate Oxygen saturation Oxygen saturation in Arterial blood by Pulse oximetry Systolic blood pressure Diastolic blood pressure Provider Name and Address Organization Details Last Updated DateTime 3 172.72 cm 36.3 kg/m2 702680. 58 g 98.1 [degF] 80 /min 98 % 98 % 124 mm[Hg] 78 mm[Hg] Promise Capps RN [place] [email or web address] [facility] 08:48:22 Date Recorded Systolic blood pressure Diastolic blood pressure Provider Name and Address Organization Details Last Updated DateTime 04/28/2023 124 mm[Hg] 80 mm[Hg] THAIS Landin [address] [facility], [facility] [address], [place], [address], [place] [employer] [facility] 04/28/2023 09:28:53 Social History Question Answer Notes LastModified by Organizat ion Details LastModified Time Tobacco Smoking Status Never Smoker Not Available [employer] 11/04/2022 18:20:15 Do You Have An Advance Directive? No [id number] Information not available 11/04/2022 What Is Your Level Of Alcohol Consumption? Occasional [id number] Information not available 11/04/2022 What Is Your Level Of Caffeine Consumption? Moderate [id number].[id number] 8901 Information not available 11/04/2022 In The 14 Days Before Symptom Onset, Have You Had Close Contact With A Laboratory-confir med COVID-19 While That Case Was Ill? No [id number] Information not available 11/04/2022 In The 14 Days Before Symptom Onset, Have You Had Close Contact With A Person Who Is Under Investigation For COVID-19 While That Person Was Ill? No [id number] 4523 Information not available 11/04/2022 Are You Currently Employed? Yes [email or web address] Information not available 04/27/2023 What Type Of Diet Are You Following? 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 No [id number] Information not available 11/04/2022 Are There Any Guns Present In Your Home? No [id number].[id number] Information not available 11/04/2022 Do You Use Insect Repellent Routinely? No [id number].[id number] 3595 Information not available 11/04/2022 Do You Have A Medical Power Of Automotive Project Engineer? No [id number].025601 7829 Information not available 11/04/2022 What Is Your Relationship Status? MIGRATION.784823 6106 Information not available 11/04/2022 Do You Use Your Seat Belt Or Car Seat Routinely? Yes [id number].[id number] 5357 Information not available 11/04/2022 Do You Have Smoke And Carbon Monoxide Detectors In Your Home? Yes [id number].[id number] 5921 Information not available 11/04/2022 Do You Use Any Illicit Or Recreational Drugs? No MIGRATION.831048 3198 Information not available 11/04/2022 Do You Use Sunscreen Routinely? Yes MIGRATION.852066 7863 Information not available 11/04/2022 Have You Recently Traveled Abroad? No MIGRATION.218513 7246 Information not available 11/04/2022 Do You Have Any Dietary Restrictions? No MIGRATION.329112 1030 Information not available 11/04/2022 Do You Or Have You Ever Used Any Other Forms Of Tobacco Or Nicotine? No MIGRATION.238941 7221 Information not available 11/04/2022 Sex: Unknown Functional Status Question Answer Note LastModified by Organizat ion Details LastModified Time What is your exercise level? Occasional [id number] Information not available 11/04/2022 Mental Status None recorded. Family History Relationship Description Onset Age of this Age Resolved Age Notes LastModified by Organization Details LastModified Time Father Cardiac pacemaker procedure [id number] Not available 11/04/2022 18:20:20 Unspecified Relation Myocardial infarction [id number] Not available 11/04/2022 18:20:20 Medical History Condition Response HEADACHES/MIGRAINES Y ANXIETY DISORDER Y DIZZINESS Y ASTHMA Y HEARTBURN / REFLUX Y HYPERTENSION Y STROKE/TIA Y HIGH CHOLESTEROL / HYPERLIPIDEMIA Y Immunizations Vaccine Type Date Status Note Provider Nam e and Address Organization Details Recorded Time Influenza, split virus, quadrivalent, preservative 2 completed Not Available [facility] 11/04/2022 18:21:58 COVID-19, mRNA, LNP-S, PF, 100 mcg/0.5mL dose or 50 mcg/0.25mL dose 2 completed Not Available [facility] 11/04/2022 18:21:58 COVID-19, mRNA, LNP-S, PF, 100 mcg/0.5mL dose or 50 mcg/0.25mL dose 1 completed Not Available [facility] 11/04/2022 18:21:58 Pneumococcal Conjugate, unspecified formulation 6 completed Not Available [facility] 11/04/2022 18:21:58 Past Encounters Encounter ID Performer Location Encounter Start Date Encounter Closed Date Diagnosis/Indication Diagnosis SNOMED-CT Code Diagnosis ICD10 Code Diagnosis Note [id number] [facility] [address] [place] [address] 05/23/2021 00:00:00 05/25/2021 17:34:33 [id number] [facility] [address] [place] [address] 12/12/2021 00:00:00 01/03/2022 19:33:26 [id number] [facility] [address] [place] [address] 10/28/2022 00:00:00 10/31/2022 21:57:05 [id number] THAIS Landin [facility] [address] [place] [address] 04/28/2023 08:44:18 04/28/2023 09:33:09 Benign essential hypertension 4802620 I10 stable on lisinopril 40mg daily, Mixed hyperlipidemia 267 349413 E78.2 stable on pravastati n 40mg daily. due for fasting lipid panel Obstructiv e sleep apnea syndrome 12354923 G47.33 stable on cpap therapy Asthma 404287938 J45.90 9 stable on symbicort 160mcg/4.5 mcg daily. Blood gluc ose outside reference range 359634841 R73.09 5.9% a1c earlier in year. due for repeat a1c. Pain of bi lateral knee joints 4920281150 78778 M25.561 M25.562 check xray bilat. knees. Low back pain 038111097 M54.50 check xray LS spine Long-term drug therapy 988767119 Z79.899 routine CBC, CMP and TFTs due Anxiety 30378723 F41.9 some elevation in anxiety with desire to change jobs. stable overall on citalopram 10mg daily. Health Concerns Section Related Observation LastModified by Organization Detai ls LastModified Time None Recorded Concern Status LastModified by Organization Details LastModified Time None Recorded Advance Directives Directive N: Payers Encounter Date Sequence Insurance Name Policy Number Policy Wright Covered Member ID Wright Member ID Guarantor Name 04/28/2023 1 *SELF PAY* Phi Persaud Notes Date Note Type Note Provider Name and Address Organization Details Recorded Time 021 text/h tml Anxiety/DepressionReported bypatient.Severity:denies suicidal ideations; able to maintain relationships; does not interfere with activities of daily living Context:no major life stressors Associated Symptoms:denies homicidal ideations; no significant weight gain; no significant weight loss; no visual/auditory hallucinations; no delusions; no shortness of breath; mood good; no anxiety; no crying spells; no panic; no isolation; sleeping well; appetite good; energy good; no apathy; maintaining functionalityHyperlipidemiaReported bypatient.Control:usually well controlled; improving; at goal Compliance:compliant; compliant with diet; exercises Complications:no coronary artery disease; no peripheral artery disease; no cardiovascular diseaseHypertensionReported bypatient.Onset/Timing:better Self Care:not under emotional stress Associated Symptoms:no shortness of breath; no fatigue; no palpitations; no decline in exercise capacity; no snoring Not Available [facility] [employer] 05/25/2021 17:34:33 022 text/h tml Anxiety/DepressionReported bypatient.Severity:denies suicidal ideations; able to maintain relationships; does not interfere with activities of daily living Duration:symptoms lasting over 2 weeks Onset/Timing:still present Context:no major life stressors Modifying Factors:medications as directed Associated Symptoms:denies homicidal ideations; no significant weight gain; no significant weight loss; no visual/auditory hallucinations; no delusions; no shortness of breath; mood good; no anxiety; no crying spells; no panic; no isolation; sleeping well; appetite good; energy good; no apathy; maintaining functionalityHyperlipidemiaReported bypatient.Duration:chronic Control:usually well controlled Compliance:compliant; compliant with diet; exercises Complications:no coronary artery disease; no peripheral artery disease; no cardiovascular disease Risk Factors:hypertensionHypertensionRepor nelson bypatient.Duration:has noted for years Onset/Timing:better Alleviating Factors:medication Self Care:not under emotional stress Associated Symptoms:no shortness of breath; no fatigue; no palpitations; no decline in exercise capacity; no snoring Not Available [employer] 01/03/2022 19:33:26 023 text/h tml Anxiety/DepressionReported bypatient.Severity:denies suicidal ideations; able to maintain relationships; does not interfere with activities of daily living Duration:symptoms lasting over 2 weeks Onset/Timing:still present Context:no major life stressors Modifying Factors:medications as directed Associated Symptoms:denies homicidal ideations; no significant weight gain; no significant weight loss; no visual/auditory hallucinations; no delusions; no shortness of breath; mood good; no anxiety; no crying spells; no panic; no isolation; sleeping well; appetite good; energy good; no apathy; maintaining functionality HyperlipidemiaReported bypatient.Duration:chronic Control:usually well controlled Compliance:compliant; compliant with diet; exercises Complications:no coronary artery disease; no peripheral artery disease; no cardiovascular disease Risk Factors:hypertensionHypertensionRepor nelson bypatient.Duration:has noted for years Onset/Timing:better Alleviating Factors:medication Self Care:not under emotional stress Associated Symptoms:no shortness of breath; no fatigue; no palpitations; no decline in exercise capacity; no snoringNotes:reports high bp readings at home, brought home bp machine today to comparedenies headaches and dizziness Not Available [employer] 10/31/2022 21:57:05 023 text/h tml Anxiety/DepressionReported bypatient.Severity:denies suicidal ideations; able to maintain relationships; does not interfere with activities of daily living Context:no major life stressors Associated Symptoms:denies homicidal ideations; no significant weight gain; no significant weight loss; no visual/auditory hallucinations; no delusions; no shortness of breathHyperlipidemiaReported bypatient.Control:usually well controlled; improving; at goal Compliance:compliant; compliant with diet; exercises Complications:no coronary artery disease; no peripheral artery disease; no cardiovascular diseaseHypertensionReported bypatient.Onset/Timing:better Associated Symptoms:no shortness of breath; no fatigue; no palpitations; no decline in exercise capacity; no snoring THAIS Landin [address] [facility], [place] [address], [place], [address], [place] - [facility] 05/06/2023 00:01:58
--- OUTSIDE RECORDS SUMMARY | 2024-12-21 03:20 | XMS_ITS | Clinical Summary ---
Author Organization [facility] Address [address] [facility] [place] [address] Care Team Providers Care Music Specialist Name Role Phone Charlotte Melendrez Primary Care Pr ovider Source Comments [facility],non-owned Affiliates and Associated Physician Practices is amultiple site organization consisting of ambulatory clinics and hospital sitesin [place], [place], [place] and [place]. This disclosure is being madepursuant to the Care Everywhere program and may not contain all information available regarding this patient. 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 Gender Identity Not on file Sexual Orientation Not on file Last Filed Vital Signs Vital Sign Reading Time Taken Comments Blood Pressure 139/82 09/03/2015 1:35 PM MAINFRAME SYSTEMS PROGRAMMER Pulse 74 09/03/2015 1:35 PM MAINFRAME SYSTEMS PROGRAMMER Temperature 37.1 C (98.8 F) 06/10/2015 4:07 PM CDT Respiratory Rate 18 06/10/2015 4:07 PM CDT Oxygen Saturation 97% 07/02/2015 1:18 PM CDT Inhaled Oxygen Concentration - - Weight 97.5 kg (215 lb) 09/03/2015 1:35 PM MAINFRAME SYSTEMS PROGRAMMER Height 172.7 cm (5' 8 ) 07/02/2015 1:18 PM CDT Body Mass Index 32.69 07/02/2015 1:18 PM CDT Plan of Treatment Health Maintenance Due Date Last Done Comments COLOGUARD (AGES 45-75) - COL ON CA SCREENING 1961 COLON MONITORING 1961 COLONOSCOPY - COLON CA SCREENING 1961 CT COLONOGRAPHY - COLON CA SCREENING 1961 Colorectal Cancer Screening 1961 FIT - COLON CA SCREENING 1961 FLEX SIG - COLON CA SCREENING 1961 LIPID TESTING 1961 HIV SCREENING 1976 HEPATITIS C SCREENING 12/25/1979 DTAP/TDAP/TD VACCINES (1 - Tdap) 1980 PNEUMOCOCCAL VACCINE 50+ (1 of 1 - PCV) 12/30/2011 ZOSTER VACCINE (1 of 2) 12/30/2011 COVID-19 VACCINE ( - 2023-2 5 season) 2024 DEPRESSION SCREENING 09/06/2024 INFLUENZA VACCINE (Season Ended) 2025 Respiratory Syncytial Virus (RSV) Vaccine Pt: or over 60 yrs (1 - 1-dose 75+ series) 2036 HEPATITIS B VACCINE Aged Out No longe r eligible based on patient's age to complete this topic HIB VACCINE Aged Out No longer eligi ble based on patient's age to complete this topic HPV VACCINE Aged Out No longer eligi ble based on patient's age to complete this topic MENINGOCOCCAL (Group B) VACC INE SHARED DECISION-MAKING Aged Out No longer eligibl e based on patient's age to complete this topic MENINGOCOCCAL GROUPS A/C/Y/W VACCINE Aged Out No longer eligible b ased on patient's age to complete this topic Insurance [facility] [place] [address] [facility] Care Teams Music Specialist Relationship Specialty Start Date End Date Charlotte Melendrez PA [address] [place] [address] [place] [id number] PCP - General Physician Network Field Engineer 09/02/18
--- OUTSIDE RECORDS SUMMARY | 2024-12-21 03:20 | XMS_ITS | Clinical Summary ---
Author Organization [facility] Address [address] [place] [id number] Care Team Providers Care Mri Special Procedures Technologist Name Role Phone Unavailable Primary Care Provider Unavailabl e Social History Tobacco Use Types Packs/Day Years Used Date Smoking Tobacco: Never Assessed Sex and Gender Information Value Date Recorded Sex Assigned at Not on file Legal Sex Male 5:55 PM CDT Gender Identity Not on file Sexual Orientation Not on file Plan of Treatment Health Maintenance Due Date Last Done Comments Colorectal Cancer Screening Colonoscopy (10 Years) 1961 Annual Physical 1964 Hepatitis C 12/30/1979 DTaP, Tdap and Td Vaccines ( 1 - Tdap) 1980 Zoster Vaccines (1 of 2) 12/30/2011 COVID-19 Vaccine ( - 2023-2 5 season) 2024 RSV Immunization or 60+ Years (1 - 1-dose 75+ series) 2036 Meningococcal B Vaccine Aged Out No l onger eligible based on patient's age to complete this topic Meningococcal Vaccine Aged Out No janessa grady eligible based on patient's age to complete this topic Pneumococcal Vaccine: Pediat rics (0 to 5 Years) and At-Risk Patients (6 to 49 Years) Aged Out No longer eligible b ased on patient's age to complete this topic RSV Immunizations Under 20 Months Aged Out No longer eligible based on patient's age to complete this topic
[2024-12-21 03:41] LABS: Lipase 20510 U/L (23-300)
[2024-12-21] MEDS: levoFLOXacin 750 MG/D5W 150 ML 750 MG/150 ML BAG 100 MG IVPB (04:28)
[2024-12-21] MEDS: LACTATED RINGERS 1,000 ML 200 ML IV CONT (05:51)
--- NOTE | 2024-12-21 05:58 | ADMGEN ---
This patient, Ross Persaud, was admitted to 3 Med Surg Room 331-02. Patient/family oriented to hospital policies and general routines including ID bracelet, bed and alarms, visiting hours, pain management, procedures, bathroom and other care routines, personal items, smoking policy, room service/diet, and visiting hours. Information on how to activate the Rapid Response Team has been discussed. Patient/Family are encouraged to report perceived risks to care and to ask questions if they do not understand what they are told or what they should do.
[2024-12-21 10:39] LABS: Hepatitis B Surface Antigen Negative (Negative)
[2024-12-21 10:45] LABS: HAV RESULT Negative (Negative); Hepatitis B Core IgM Result Negative (Negative)
[2024-12-21 10:56] LABS: Hepatitis C Virus Antibody Negative (Negative)
[2024-12-21 10:58] LABS: Alveolar/Arterial O2 Gradient 37.6 mmHg; Base Excess ABG -4.2 mEq/l (+/-2.0); Fractional Inspired Oxygen 24 %; HCO3 ABG 21.2 mEq/l (22.0-26.0); Oxyhemoglobin 95.8 % THb (90.0-100.0); PCO2 ABG 40.1 mmHg (35.0-45.0); PO2 ABG 85.8 mmHg (80.0-100.0); PO2 FiO2 Ratio Arterial Blood 3.58 %; Total Hemoglobin 17.8 g/dL (12.0-18.0); pH ABG 7.341 (7.350-7.450)
[2024-12-21 11:01] LABS: Device NASAL CANNULA; Site Drawn LEFT BRACHIAL
[2024-12-21] MEDS: metroNIDAZOLE 500 MG/ISO 100ML 500 MG/100 ML BAG 100 MG IVPB ×2 (14:15→23:44)
[2024-12-21 15:40] LABS: Basophils Percent Auto 0.2 % (0.2-1.2); Hematocrit 53.5 % (42.0-52.0); Hemoglobin 17.6 g/dL (14.0-18.0); Immature Granulocyte Absolute 0.14 K/mm3 (0.00-0.031); Immature Granulocyte Percent A 0.7 % (0-0.5); Lymphocytes Absolute Auto 0.76 K/mm3 (0.9-3.2); Mean Corpuscular HGB Conc 32.9 g/dl (32-36); Mean Corpuscular Hemoglobin 29.3 pg (26-34); Mean Corpuscular Volume 89.2 fl (80-100); Mean Platelet Volume 9.4 fl (7.4-10.4); Monocytes Absolute Auto 1.8 K/mm3 (0.1-0.6); Monocytes Percent Auto 9.3 % (2.6-8.5); Neutrophils Absolute Auto 16.3 K/mm3 (1.3-6.7); Neutrophils Percent Auto 85.8 % (45.5-73.1); Platelet Count Result 282 k/mm3 (150-375)
--- NOTE | 2024-12-21 15:46 | PM.IMHP ---
H&P: HPI History of Present Illness Date/Time: 12/21/24 15:46 Chief Complaint: CT abdomen and chest pain. Narrative: 63-year-old male past medical history of asthma hypertension subarachnoid hemorrhage presented to the ER on account of abdominal pain. Patient reported he was in his usual state of health until about 8:30 p.m. last night when he started having sudden onset abdominal pain described as sharp 9/10 X intensity associated with vomiting, and lightheadedness. Noted a right-sided chest pain and shortness of breath. Otherwise denies any loss of consciousness, no diarrhea, no dysuria no focal symptoms. ER evaluation notable for vital signs stable and normal limits, WBC 21, creatinine 0.97, glucose 218, AST 512, ALT 493, lipase [id number]. CT abdomen showed findings compatible with acute pancreatitis, extensive soft tissue thickening and inflammatory change surrounding SMV and main portal vein a. Superimpose vasculitis is a consideration. 6 cm left renal mass noted. Patient was admitted for further evaluation and care. Review of Systems Review of Systems: All other systems reviewed and negative except as noted in history above. [facility] Family History Family History Sibling Family history of thyroid disease Patient's brother is in good health Mother Patient's mother is in good health Father Carcinoma of colon Social History Social History Smoking status: Never smoker Alcohol intake: current Drinks per week: 5 Substance use: never Substance use type: does not use Do You Feel Safe in your Home?: Yes Lack of Transportation: No Lack of Food: Never True Current Housing: I Have Housing Concerned About Future Housing: No Difficulty Paying Gas/Electric Bills: No Difficulty Paying for Meds: No Currently Unemployed: No Education: Associate Degree Difficulty w/ Childcare or Family Care: No Spiritual care concerns: No Meds Home Medications and Allergies Home Medications ?Medication ?Instructions ?Recorded ?Confirmed ?Type albuterol sulfate 90 mcg/actuation 2 puff inhalation Q4H PRN 12/21/24 12/21/24 History aerosol inhaler shortness of breath or wheezing budesonide-formoterol HFA 160 2 puff inhalation Q12H PRN SOB 12/21/24 12/21/24 History mcg-4.5 mcg/actuation aerosol inhaler citalopram 10 mg tablet 10 mg PO DAILY 12/21/24 12/21/24 History lisinopril 40 mg tablet 40 mg PO DAILY 12/21/24 12/21/24 History pravastatin 40 mg tablet 40 mg PO HS 12/21/24 12/21/24 History Allergies Allergy/AdvReac Type Severity Reaction Status Date / Time Penicillins Allergy Unknown Verified 12/12/14 14:59 penicillin Allergy Unknown Uncoded 02/27/03 12:39 Vital Signs Vital Signs - 24 hr 12/21/24 01:40 12/21/24 01:49 12/21/24 03:24 Temperature 98.5 F 98.5 F Pulse Rate 92 82 88 Respiratory Rate 13 20 26 H Blood Pressure 145/83 H 138/92 H 170/98 H Pulse Oximetry 96 97 97 Oxygen Delivery Room Air Oxygen Flow Rate 12/21/24 03:31 12/21/24 03:59 12/21/24 04:55 Temperature Pulse Rate 88 89 Respiratory Rate 18 20 Blood Pressure 157/91 H 162/88 H Pulse Oximetry 97 98 97 Oxygen Delivery Nasal Cannula Oxygen Flow Rate 2 12/21/24 05:58 12/21/24 06:00 12/21/24 10:52 Temperature 98.7 F Pulse Rate 88 Respiratory Rate 18 Blood Pressure 124/74 Pulse Oximetry 97 95 96 Oxygen Delivery Nasal Cannula Nasal Cannula Oxygen Flow Rate 1 1 12/21/24 13:36 Temperature 97.5 F L Pulse Rate 109 H Respiratory Rate 18 Blood Pressure 102/83 Pulse Oximetry 95 Oxygen Delivery Oxygen Flow Rate Exam Narrative: General: alert and comfortable Eyes: EOMI, PERRLA ENNT External ears normal, Neck is supple, no masses, Respiratory systems: Clear to auscultation Cardiovascular S1, S2, normal rhythm, no murmur, rub, or gallop; no thrill or palpable murmurs on palpation. Gastrointestinal: soft, epigastric and LLQ pain BS present Skin: no rash, lesions, ulcerations, subcutaneous nodules or induration Musculoskeletal: no abnormality and no tenderness, normal ROM Neurologic: Alert and oriented x3, non focal Mental Status Exam: normal affect H&P: Results Labs Labs: Short CBC 12/21/24 Range/Units 01:53 WBC 21.0 H (4.5-10.0) K/mm3 Hgb 15.1 (14.0-18.0) g/dL Hct 46.0 (42.0-52.0) % Plt Count 258 (150-375) k/mm3 BMP 12/21/24 01:53 Sodium 141 Potassium 3.9 Chloride 104 Carbon Dioxide 24 BUN 25 H Creatinine 0.97 Glucose 218 H Calcium 8.6 Liver Function 12/21/24 Range/Units 01:53 Total Bilirubin 0.8 (0.2-1.3) mg/dL AST 512 H (17-59) U/L ALT 493 H (6-50) U/L Alkaline Phosphatase 108 (38-126) U/L Albumin 4.8 (3.5-5.1) g/dL Assessment and Plan Assessment and plan (1) Acute pancreatitis: Code(s): K85.90 - Acute pancreatitis without necrosis or infection, unspecified Status: Acute (2) Transaminitis: Code(s): R74.01 - Elevation of levels of liver transaminase levels Status: Acute Plan Acute pancreatitis with elevated liver enzymes ?Biliary pancreatitis presented with abd pain and vomiting Labs showed elevated Lipase and liver enzymes CT AP reviewed Continue PO and PRN pain control GI consulted Elevated Liver enzymes ?Choledocholithiasis US pending continue above care Pneumonia with large right pleural effusion CT chest reviewed Blood culture, MRSA pending Started on Levaquin and Flagyl Thoracentesis and pleural fluid studies ordered Portal and SM vein inflammation per CT US ordered blood culture Levaquin and Flagyl ordered Renal cyst rule out malignancy MRI w/wo contrast monitor Hyperglycemia BG 218 SSI with accucheks A1c pending Asthma PRN bronchodilators HTN Titrate home meds with clinical course Hx of SAH monitor DVT prophylaxis on Sq Lovenox Full code Hospitalist MIPS Advance Care Plan I have confirmed that the patient's Advanced Care Plan is present, code status is documented, or surrogate decision maker is listed in patient medical record.: Yes Medication Reconciliation I have utilized all available resources to obtain, update and review the patients current medications (includes all prescriptions, OTC, herbals, cannabis, and nutritional supplements).: Yes
[2024-12-21] MEDS: LACTATED RINGERS 1,000 ML 150 ML IV CONT (15:50)
[2024-12-21 16:11] LABS: Alanine Aminotransferase 313 U/L (6-50); Albumin Level 4.3 g/dL (3.5-5.1); Alkaline Phosphatase 67 U/L (38-126); Anion Gap 10 mmol/L (4-12); Aspartate Amino Transferase 164 U/L (17-59); Bilirubin,Total 1.1 mg/dL (0.2-1.3); Blood Urea Nitrogen 35 mg/dL (9-20); Carbon Dioxide 17 mmol/L (22-30); Chloride 109 mmol/L (98-107); Estimated CRCL calculation 63 ml/min; Estimated Glomerular Filt Rate 59; Glucose 176 mg/dL (65-110); Potassium 5.9 mmol/L (3.4-5.0); Sodium 136 mmol/L (137-145)
[2024-12-21 16:34] LABS: INR 1.2; Prothrombin Time 15.2 Seconds (11.1-14.7)
[2024-12-21 16:35] LABS: Partial Thromboplastin Time 24.1 Seconds (22.3-36.8)
[2024-12-21 17:10] LABS: Lactate Dehydrogenase 581 U/L (120-246)
--- NOTE | 2024-12-21 17:57 | P.CONGI_ITS ---
Assessment and Plan Assessment and plan (1) Acute pancreatitis: Code(s): K85.90 - Acute pancreatitis without necrosis or infection, unspecified Status: Acute Assessment and Plan: Acute pancreatitis in this patient is present with concerning severity indicators: free abdominal fluid and pleural effusions. Despite apparent adequate intravenous fluid resuscitation based on weight, the increasing hematocrit (46 to 52) and BUN (25 to 35) observed today suggest ongoing hemoconcentration and inadequate intravascular volume. To address this, we will temporarily increase the lactated Ringer's rate to 200 cc/hour for 6 hours, followed by a return to the baseline of 1.5 cc/kg/hour. We will monitor the hematocrit and BUN trends closely until tomorrow. If these parameters do not improve, early enteral feeding via a feeding tube will be initiated to prevent bacterial translocation, given the patient's risk for development of SIRS criteria (WBC 21,000) although vital signs and O2 saturation remain stable. A thoracentesis is also planned to address the right sided pleural effusion. Plan - CBC and CMP every 8 hours - Watch O2 sat, vital signs - Strict Is & Os GI Consult Note Consult date/time: 12/21/24 17:57 HPI: Ross Persaud II, a 63-year-old male with a history of sleep apnea on CPAP, presented to the emergency department with severe (/10) abdominal pain radiating to the back and protracted nausea, which began the night prior after a regular dinner. Evaluation revealed acute pancreatitis, evidenced by a white blood cell count of 21,000, hematocrit of 46%, BUN of 25, AST of 512, ALT of 193, and lipase of 20,510. Imaging studies demonstrated acute pancreatitis with extensive pancreatic edema and peripancreatic stranding but no necrosis, along with free abdominal fluid and a distended gallbladder with pericholecystic edema. Notably, a chest CT showed a large right pleural effusion with adjacent consolidation suspicious for pneumonia, and a small left pleural effusion with atelectasis. The patient was admitted and started on antibiotics to cover pneumonia and possible acute cholecystitis. He received 2 liters of normal saline in the ED and 1 liter of lactated Ringers en route to the floor. His abdominal pain is currently managed with Dilaudid. Review of Systems 2 Review of Systems: All systems reviewed & are unremarkable except as noted in HPI and below PMFSH Family History Family History Sibling Family history of thyroid disease Patient's brother is in good health Mother Patient's mother is in good health Father Carcinoma of colon Social History Social History Smoking status: Never smoker Alcohol intake: current Drinks per week: 5 Substance use: never Substance use type: does not use Do You Feel Safe in your Home?: Yes Lack of Transportation: No Lack of Food: Never True Current Housing: I Have Housing Concerned About Future Housing: No Difficulty Paying Gas/Electric Bills: No Difficulty Paying for Meds: No Currently Unemployed: No Education: Associate Degree Difficulty w/ Childcare or Family Care: No Spiritual care concerns: No Meds Home Medications and Allergies Home Medications ?Medication ?Instructions ?Recorded ?Confirmed ?Type albuterol sulfate 90 mcg/actuation 2 puff inhalation Q4H PRN 12/21/24 12/21/24 History aerosol inhaler shortness of breath or wheezing budesonide-formoterol HFA 160 2 puff inhalation Q12H PRN SOB 12/21/24 12/21/24 History mcg-4.5 mcg/actuation aerosol inhaler citalopram 10 mg tablet 10 mg PO DAILY 12/21/24 12/21/24 History lisinopril 40 mg tablet 40 mg PO DAILY 12/21/24 12/21/24 History pravastatin 40 mg tablet 40 mg PO HS 12/21/24 12/21/24 History Allergies Allergy/AdvReac Type Severity Reaction Status Date / Time Penicillins Allergy Unknown Verified 12/12/14 14:59 penicillin Allergy Unknown Uncoded 02/27/03 12:39 Vital Signs Vital Signs - 24 hr 12/21/24 01:40 12/21/24 01:49 12/21/24 03:24 Temperature 98.5 F 98.5 F Pulse Rate 92 82 88 Respiratory Rate 13 20 26 H Blood Pressure 145/83 H 138/92 H 170/98 H Pulse Oximetry 96 97 97 Oxygen Delivery Room Air Oxygen Flow Rate 12/21/24 03:31 12/21/24 03:59 12/21/24 04:55 Temperature Pulse Rate 88 89 Respiratory Rate 18 20 Blood Pressure 157/91 H 162/88 H Pulse Oximetry 97 98 97 Oxygen Delivery Nasal Cannula Oxygen Flow Rate 2 12/21/24 05:58 12/21/24 06:00 12/21/24 10:52 Temperature 98.7 F Pulse Rate 88 Respiratory Rate 18 Blood Pressure 124/74 Pulse Oximetry 97 95 96 Oxygen Delivery Nasal Cannula Nasal Cannula Oxygen Flow Rate 1 1 12/21/24 13:36 Temperature 97.5 F L Pulse Rate 109 H Respiratory Rate 18 Blood Pressure 102/83 Pulse Oximetry 95 Oxygen Delivery Oxygen Flow Rate Exam 2 Narrative: Alert and oriented, not acutely distressed. Not jaundiced. Lungs: Decreased breath sounds in both bases, more in the right side. Abdomen: Bowel sounds hypoactive, tendon in the right upper quadrant and epigastrium. No rebound. Rest of the examination within normal limits. Results Labs 12/21/24 15:21 12/21/24 15:21 Labs: Short CBC 12/21/24 12/21/24 Range/Units 01:53 15:21 WBC 21.0 H 19.0 H (4.5-10.0) K/mm3 Hgb 15.1 17.6 (14.0-18.0) g/dL Hct 46.0 53.5 H (42.0-52.0) % Plt Count 258 282 (150-375) k/mm3 BMP 12/21/24 12/21/24 01:53 15:21 Sodium 141 136 L Potassium 3.9 5.9 H Chloride 104 109 H Carbon Dioxide 24 17 L BUN 25 H 35 H D Creatinine 0.97 1.24 Glucose 218 H 176 H Calcium 8.6 6.0 L Liver Function 12/21/24 12/21/24 Range/Units 01:53 15:21 Total Bilirubin 0.8 1.1 (0.2-1.3) mg/dL AST 512 H 164 H (17-59) U/L ALT 493 H 313 H (6-50) U/L Alkaline Phosphatase 108 67 (38-126) U/L Albumin 4.8 4.3 (3.5-5.1) g/dL
[2024-12-21 18:00] LABS: pH Pleural Fluid 7.328 (7.210-7.500)
[2024-12-21 19:42] LABS: Appearance Pleural Fluid Bloody (Clear); Color Pleural Fluid Red (Colorless); Lymphocytes Pleural Fluid 58 %; Macrophages Pleural Fluid 27 %; Neutrophils Pleural Fluid 15 % (0-25); Pleural fluid source Pleural fluid; RBC Pleural Fluid 10000 /uL (0-10000)
[2024-12-21 19:48] LABS: Nucleated Cell Pleural Fluid 128 /uL (0-1000)
[2024-12-21 20:37] LABS: Glucose Point of Care 176 mg/dl (65-105)
--- NOTE | 2024-12-21 20:51 | ECG_ITS ---
Test Date: 2024-12-21 21:06:32 Measurements Intervals Harrah Rate: 118 P: 10 MT: 164 QRS: -4 QRSD: 77 T: 33 QT: 296 QTc: 415 Interpretive Statements SINUS TACHYCARDIA DELAYED PRECORDIAL R/S TRANSITION ABNORMAL ECG Compared to ECG 12/21/2024 01:43:40 HEART RATE HAS DECREAED Electronically Signed On 12-22-2024 06:16:24 CDT by Payam Lazo D.O.
[2024-12-21 21:17] LABS: Glucose Point of Care 172 mg/dl (65-105)
[2024-12-21] MEDS: STAT BOLUS COMMUNICATION ORDER 1000 ML IV CONT (21:30)
[2024-12-21] MEDS: LACTATED RINGERS 1,000 ML 999 ML IV CONT ×2 (21:32→22:59)
[2024-12-21] MEDS: SODIUM BICARBONATE 8.4% 50 MEQ/50 ML SYRINGE IV PUSH (21:38)
[2024-12-21 21:42] LABS: Hematocrit 53.8 % (42.0-52.0); Hemoglobin 17.7 g/dL (14.0-18.0); Mean Corpuscular HGB Conc 32.9 g/dl (32-36); Mean Corpuscular Hemoglobin 29.4 pg (26-34); Mean Corpuscular Volume 89.2 fl (80-100); Mean Platelet Volume 9.6 fl (7.4-10.4); Platelet Count Result 276 k/mm3 (150-375); Red Blood Count 6.03 M/mm3 (4.6-6.20); Red Cell Distribution Width 13.2 % (11.5-14.5)
--- NOTE | 2024-12-21 21:43 | PM.CCN ---
Critical Care Event Note Summary Code activated: No Narrative: Rapid response was called at 21:13. Patient was found to be tachycardic with heart rates in the 130s to 140s and hypotensive with systolic blood pressures of 85. Patient was reporting generalized pain and was overtly diaphoretic. Patient spiked a fever greater than 101. 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 The patient had had initial CT of the abdomen pelvis in the ER. He had a repeat CT of the chest earlier today which demonstrated acute increase in pleural effusion size from small to large on the right. He underwent ultrasound-guided thoracentesis which was uncomplicated. Pleural fluid does not suggest infection but was slightly bloody. Pleural fluid triglycerides glucose and albumin are still pending. Patient has been started on empiric antibiotic therapy with Levaquin and Flagyl on admission and has blood cultures pending. This afternoon repeat labs demonstrated acute kidney injury with low serum bicarb and hyperkalemia. Nursing staff reports that hyperkalemia has not yet been treated. Patient's labs at that time also demonstrated hypocalcemia which was acute with a calcium of 6. CT of the chest also demonstrated collapsed inferior vena cava findings consistent with severe hypovolemia despite patient having received 2 L of fluid bolus in the ER and having LR running at 200 mL for most of the day. The patient had had fair urine output but urine was dark. GENERAL: Acutely ill-appearing, obese, appears stated age HEENT: Mucous membranes are dry, no oral pharyngeal erythema, no scleral icterus, large neck circumference CARDIOVASCULAR: Sinus tachycardia, 1+ bilateral radial pedal pulses, no murmur RESPIRATORY: Moderate tachypnea, decreased breath sounds at the left lung base, no crackles ABDOMEN: Distended, diffusely tender but more so in the upper quadrant, hypoactive bowel sounds INTEGUMENT: Markedly diaphoretic, cool to touch, mottled, 4-5 second cap refill, chronic erythematous papular rash of the lower abdomen groin scrotum inguinal folds and extending around the hips that is pruritic in nature NEUROLOGIC: Alert orient x4, speech is clear, moves all extremities equally PSYCHIATRIC: Appropriately Anxious, intact judgment and insight EXTREMITIES: No clubbing, delayed cap refill, mild cyanosis : Richey catheter placed after resuscitation efforts demonstrated dark urine approximately 350 mL Assessment and plan: Hypovolemic shock--patient has received an additional 2 L of LR in bolus. Patient has had modest improvement in blood pressure but jugular vein is still markedly easily collapsible. Will check cheetah score. Central line is been placed due to poor peripheral vascular access is patient only had 118 gauge IV in nursing staff was unable to place another IV and due to suspected need for pressor therapy. Will continue IV fluid hydration will change fluids to bicarb drip D5 with 1 her 50 mL of sodium bicarb to run at 200 mL an hour. Sepsis with likely overlying component of septic shock--infection most likely due to necrotizing pancreatitis however cannot rule out a component of possible aspiration pneumonia. Will broaden antibiotic coverage by adding vancomycin. Will continue Levaquin and Flagyl. Patient is febrile but we do not have IV Tylenol available and patient is not a candidate for ibuprofen due to renal failure. Will continue with cooling measures. Acute pancreatitis--most likely idiopathic but given inflammation changes around the superior mesenteric vein and main portal vein cannot rule out superimposed vasculitis. Especially in the setting of the patient having chronic rash. Vasculitis labs are pending. Patient's lipase has improved despite overall clinical deterioration. Will continue aggressive IV fluid hydration and p.r.n. pain medications. Will continue NPO status. Acute hypoxic respiratory failure--likely due to underlying pneumonia versus vasculitis versus pulmonary compression from pleural effusions due to third-spacing of fluid. Will continue supportive care. Acute renal failure--due to the multiple above-mentioned factors. Patient does have hyperkalemia but hyperkalemia is stable. Patient had received 1 amp of sodium bicarb prior to repeat labs being drawn. Will avoid nephrotoxic medications. Will provide pressor therapy to maintain maps 65-70 for adequate renal perfusion. Will send UA for further analysis. Richey catheter has been placed for strict monitoring of I&O's. Will give IV insulin and half amp of glucose. Will also add 10 mg albuterol nebulizer Hypocalcemia likely due to severe pancreatitis. Will give patient 1 amp of calcium gluconate IV push and then give 1 g infusion. Patient's case was discussed with the secretary office clerk has agreed to consult. Patient has been moved to the ICU. The patient and his who was at bedside were updated as to care plan and management. All questions answered. 140 minute spent in critical care activities. Due to a high probability of clinically significant, life threatening deterioration, the patient required my highest level of preparedness to intervene emergently and I personally spent this critical care time directly and personally managing the patient. This critical care time included obtaining a history; examining the patient; pulse oximetry; ordering and review of studies; arranging urgent treatment with development of a management plan; evaluation of patient's response to treatment; frequent reassessment; and discussions with other providers. It was exclusive of separately billable procedures and treating other patients and teaching time. Please see Assessment and Plan section and the rest of the note for further information on patient assessment and treatment. Critical care time: 135 - 164 mins
[2024-12-21 21:46] LABS: Lactic Acid Reflex 1.6 mmol/L (0.7-2.0)
[2024-12-21 21:53] LABS: INR 1.3; Prothrombin Time 16.1 Seconds (11.1-14.7)
[2024-12-21 21:54] LABS: Fibrinogen 536 mg/dl (215-510); Partial Thromboplastin Time 24.5 Seconds (22.3-36.8)
[2024-12-21 21:59] LABS: D Dimer 2.06 ug/mL (<0.48)
[2024-12-21 22:02] LABS: Magnesium 2.1 mg/dL (1.6-2.3)
[2024-12-21 22:08] LABS: Troponin I 0.025 ng/mL (0.000-0.034)
[2024-12-21 22:12] LABS: Alanine Aminotransferase 240 U/L (6-50); Albumin Level 4.2 g/dL (3.5-5.1); Alkaline Phosphatase 58 U/L (38-126); Anion Gap 14 mmol/L (4-12); Aspartate Amino Transferase 117 U/L (17-59); Bilirubin,Total 1.2 mg/dL (0.2-1.3); Blood Urea Nitrogen 43 mg/dL (9-20); Calcium 5.9 mg/dL (8.4-10.2); Carbon Dioxide 14 mmol/L (22-30); Chloride 110 mmol/L (98-107); Estimated CRCL calculation 38 ml/min; Estimated Glomerular Filt Rate 32; Glucose 164 mg/dL (65-110); Potassium 5.7 mmol/L (3.4-5.0); Sodium 138 mmol/L (137-145)
[2024-12-21 22:16] LABS: Procalcitonin 11.9 ng/mL
[2024-12-21 22:37] LABS: Lipase 4640 U/L (23-300)
[2024-12-21] MEDS: CALCIUM GLUC 2,000 MG/NS 100ML 2,000 MG/100 ML BAG 200 MG IVPB (23:00)
[2024-12-21] MEDS: LIDOCAINE 2% GEL UROJET 10 ML PKG MUCOUS MEM (23:00)
--- NOTE | 2024-12-21 23:12 | PC.NURSE ---
Pt c/o of 9/10 pain in his, chest and all over, and reported feeling SOB. He was also visibly sweating. Pt was on room air and had a Spo2 of 95%. He was also receiving L.R. at 200ml/hr. His vitals were obtained and his BP was 84/60 pulse 104 and his temperature was taken rectally and was 101.5. A stat EKG was obtained. A rapid response was called at approx 2115 . Labs were obtained and a chest x-ray. The rapid response team assessed the pt and he was moved to ICU.
--- NOTE | 2024-12-21 23:36 | WPDPROCEDUR ---
Procedures Central Line Placement Right IJ: Central Line Date: 12/21/24 Central Line Time: 22:50 Discussed w/ the patient/family/POA,the placement of a central venous catheter, including its clinical necessity/indication & associated potential risks, benifits and alternatives.: Yes The patient/family/POA understand(s) and acknowledge(s) the need to proceed with central venous catheter insertion as an important element of the patient's clinical management.: Yes Consent: I have discussed with the patient and/or surrogate, the non-emergent placement of a central venous catheter, including its clinical necessity/indication and associated potential risks and complications. The patient and/or surrogate understand(s) and acknowledge(s) the need to proceed with central venous catheter insertion as an important element of the patient's clinical management. Time Out Performed: Yes Patient Position: trendelenburg Patient placed on monitor/pulse ox: Yes Provider Prep: mask, sterile gown, sterile gloves, Max. sterile barrier precautions, cap and hand hygiene with conventional soap/water or alcohol based hand rub Central line prep: 2% Chlorhexidine scrub and sterile full body sheet applied Local anesthesia used: lidocaine 1% Amount of anesthesia used (ml): 3 Sterile US Technique with sterile gel/sterile probe covers: Yes Central line lumen inserted: triple Welsh: 7 Length (cm): 16 Depth of Insertion (cm): 16 Post Procedure: sutured in place, good blood return, all ports aspirated, flushed, capped, transparent dressing, hemostatic product, antimicrobial product, securement product and aseptic technique maintained throughout procedure Post procedure x-ray: tip of catheter in good position and no pneumothorax seen Patient tolerated procedure: well Complications: none Additional comments: Line was placed with standard Seldinger technique. Venous blood was returned and aspirated from all ports. All ports flushed easily. Chest x-ray personally reviewed and demonstrated catheter tip in good position without evidence of pneumothorax. Radiologic interpretation pending.
[2024-12-22] VITALS (28 sets, daily range): BP systolic 93–141; BP diastolic 57–93; PULSE 83–131; RESP 12–24; TEMP 36.8–38.1; O2SAT 89–97; BMI 33.2
--- NOTE | 2024-12-22 | ECHO_ITS ---
Patient Info Name: Ross Persaud Age: 63 years : 1960 Gender: Male Ht: 68 in Wt: 218 lbs BSA: 2.21 m2 HR: 90 bpm BP: 118 / 87 mmHg Heart Rhythm: Sinus Rhythm Technical Quality: Fair Exam Date: 12/22/2024 11:08 AM Exam Location: Echo Lab Patient Status: Inpatient Admit Date: 12/21/2024 Staff Ordering Physician: Jerrica Loredo MD [employer] Teacher: Ruthie Payton RDCS Attending Provider: Bruna Eugene DO Referring Physician: Facundo STEINER; Exam Type: CA echo dop color flow w con Study Info Indications - severe sepsis Complete two-dimensional, color flow and Doppler transthoracic echocardiogram is performed with contrast to opacify the left ventricle and to improve the deliniation of the left ventricle endocardial borders. Contrast/Agitated Saline Contrast/Ag. Saline: Definity Amount: 2.00 ml Administered By: Ruthie Payton RDCS Existing IV Access: Yes IV Access Condition: patent with no signs of infiltration Summary 1. Definity contrast administered improved wall motion interpretation. 2. Left ventricular chamber dimension is normal. 3. Left ventricular systolic function is normal, estimated at 65-70%. 4. The left ventricular diastolic function is grade I diastolic dysfunction. 5. E/e' 5 is not elevated. 6. There is mild aortic valve sclerosis. 7. There is trace pulmonic regurgitation. 8. There is small circumferential pericardial effusion. Left Ventricle E/e' 5 is not elevated. Definity contrast administered improved wall motion interpretation. Left ventricular chamber dimension is normal. Left ventricular systolic function is normal, estimated at 65-70%. The left ventricular diastolic function is grade I diastolic dysfunction. Right Ventricle Right ventricular systolic function is normal and with normal TAPSE 1.9 cm. Right ventricular chamber dimension is normal. Left Atria Left atrial chamber dimension is normal. Right Atria Right atrial chamber dimension is normal. Aortic Valve The aortic valve is trileaflet. There is mild aortic valve sclerosis. There is no aortic valve stenosis. There is no aortic valve regurgitation. No aortic valve vegetation visualized. Pulmonic Valve There is trace pulmonic regurgitation. No pulmonic valve vegetation visualized. Mitral Valve There is no mitral valve stenosis. There is no mitral valve regurgitation. No mitral valve vegetation visualized. Tricuspid Valve The tricuspid valve leaflets are not well visualized. There is no tricuspid valve regurgitation. Cannot rule out tricuspid valve vegetation visualized. Pericardium/Pleural No cardiac tamponade. There is small circumferential pericardial effusion. Inferior Vena Cava Normal inferior vena cava with >50% collapse upon inspiration consistent with normal right atrial pressure, 5 mmHg. Aorta The aortic root size at the sinus of Valsalva is normal. Left Ventricular Outflow Tract Name Value Normal LVOT 2D LVOT Diameter 2.03 cm LVOT Doppler LVOT Peak Gradient 6 mmHg LVOT Mean Gradient 4 mmHg LVOT VTI 14.53 cm LVOT VTI/AV VTI Ratio 0.70 LVOT Stroke Volume 47.06 ml LVOT CO 5.98 l/min LVOT CI 2.70 L/min/m2 Pulmonic Valve Name Value Normal RVOT Doppler RVOT Peak Gradient 5 mmHg PV Doppler PV Peak Gradient 7 mmHg Mitral Valve Name Value Normal MV Doppler MV Decel Iron 459.50 cm/s2 MV PHT 0 s MV Area (PHT) 7.98 cm2 4.00-5.00 MV Diastolic Function MV E Peak Velocity 43.67 cm/s MV A Peak Velocity 82.82 cm/s MV E/A 0.53 MV Decel Time 0 s MV Annular TDI MV E/e' (Septal) 6.01 <=8.00 MV E/e' (Lateral) 5.24 <=8.00 MV E/e' (Average) 5.63 Tricuspid Valve Name Value Normal Estimated PAP/RSVP RA Pressure 5 mmHg <=5 Aorta Name Value Normal Ascending Aorta Ao Root Diameter (MM) 2.89 cm Ao Root Diam Index (MM) 1.31 cm/m2 Aortic Valve Name Value Normal AV Doppler AV Peak Velocity 163.53 cm/s AV Peak Gradient 11 mmHg AV Mean Gradient 6 mmHg AV VTI 20.69 cm AV Area (Cont Eq VTI) 2.28 cm2 >=3.00 AV Area (Cont Eq Toi) 2.33 cm2 AV Regurgitation 2D LVOT Area 3.24 cm2 Ventricles Name Value Normal LV Dimensions 2D/MM IVS Diastolic Thickness (2D) 1.23 cm 0.60-1.00 LVID Diastole (2D) 4.84 cm 4.20-5.80 LVIW Diastolic Thickness (2D) 0.77 cm 0.60-1.00 LVID Systole (2D) 2.95 cm 2.50-4.00 LVOT Diameter 2.03 cm LV Mass (2D Cubed) 172.16 g 88.00-224.00 LV Mass Index (2D Cubed) 0.01 g/cm2 0.00-0.01 Relative Wall Thickness (2D) 0.32 LV Fractional Shortening/Ejection Fraction 2D/MM LV Fractional Shortening (2D) 39 % 25-43 LV EF (2D Teicholz) 69 % 52-72 LV Diastolic Volume (4C MOD) 33.56 ml LV EF (4C MOD) 60 % LV Diastolic Volume (2C MOD) 34.07 ml LV EF (2C MOD) 62 % LV Diastolic Volume (BP MOD) 35.82 ml 62.00-150.00 LV Diastolic Volume Index (BP MOD) 0.02 l/m2 0.03-0.07 LV Systolic Volume (BP MOD) 13.85 ml 21.00-61.00 LV Systolic Volume Index (BP MOD) 0.01 l/m2 0.01-0.03 LV EF (BP MOD) 61 % 52-72 LV Diastolic Length (4C) 8.13 cm LV Systolic Length (4C) 6.13 cm LV Stroke Volume (4C MOD) 20.06 ml Atria Name Value Normal LA Dimensions LA Dimension (MM) 3.13 cm 3.00-4.10 LA Volume (4C A-L) 31.36 ml RA Dimensions RA Area (4C) 8.75 cm2 <=18.00 Report Signatures
[2024-12-22] MEDS: ALBUTEROL SULFATE NEB 2.5 MG/3 ML INH 10 MG INHALATION (00:32)
[2024-12-22] MEDS: SODIUM BICARBONATE 8.4% 150 MEQ in DEXTROSE 5% 1,000 ML 950 ML 200 MEQ IV CONT ×2 (00:45→05:12)
[2024-12-22] MEDS: VANCOMYCIN 1,500 MG/NS 500 ML 1,500 MG/500 ML BAG 250 MG IVPB ×2 (00:51→22:16)
[2024-12-22] MEDS: HYDROmorphone HCL INJ (*CRX) 2 MG/ML VIAL 0.5 MG IV PUSH ×8 (02:55→22:17)
[2024-12-22 05:05] LABS: Glucose Point of Care 235 mg/dl (65-105)
[2024-12-22 05:36] LABS: Hematocrit 47.1 % (42.0-52.0); Hemoglobin 15.4 g/dL (14.0-18.0); Mean Corpuscular HGB Conc 32.7 g/dl (32-36); Mean Corpuscular Hemoglobin 29.7 pg (26-34); Mean Corpuscular Volume 90.9 fl (80-100); Platelet Count Result 200 k/mm3 (150-375); Red Blood Count 5.18 M/mm3 (4.6-6.20); Red Cell Distribution Width 13.2 % (11.5-14.5); White Blood Count 16.4 K/mm3 (4.5-10.0)
[2024-12-22 05:51] LABS: Lactic Acid Reflex 1.6 mmol/L (0.7-2.0)
[2024-12-22 05:59] LABS: Alanine Aminotransferase 146 U/L (6-50); Alkaline Phosphatase 43 U/L (38-126); Anion Gap 5 mmol/L (4-12); Aspartate Amino Transferase 74 U/L (17-59); Bilirubin,Total 1.1 mg/dL (0.2-1.3); Blood Urea Nitrogen 49 mg/dL (9-20); Calcium 5.4 mg/dL (8.4-10.2); Carbon Dioxide 27 mmol/L (22-30); Chloride 105 mmol/L (98-107); Estimated CRCL calculation 48 ml/min; Estimated Glomerular Filt Rate 43; Glucose 221 mg/dL (65-110); Magnesium 1.9 mg/dL (1.6-2.3); Phosphorus 2.6 mg/dL (2.5-4.5); Potassium 4.2 mmol/L (3.4-5.0); Sodium 137 mmol/L (137-145)
[2024-12-22 06:18] LABS: Band Neutrophils Percent 14 % (0-6); Lymphocytes Absolute Manual 1.31 K/mm3 (1.1-4.5); Lymphocytes Percent Manual 8 % (18-44); Monocytes Absolute Manual 0.32 K/mm3 (0.1-0.90); Monocytes Percent Manual 2 % (3-9); Neutrophils Absolute Manual 14.59 K/mm3 (1.3-6.7); Neutrophils Percent Manual 75 % (46-73); Platelet Estimate Adequate (Adequate); Total Cells Counted 100
[2024-12-22 06:19] LABS: Burr Cells 3+; Ovalocytes 1+; Schistocytes None Seen
[2024-12-22] MEDS: levoFLOXacin 750 MG/D5W 150 ML 750 MG/150 ML BAG 100 MG IVPB (06:58)
[2024-12-22] MEDS: metroNIDAZOLE 500 MG/ISO 100ML 500 MG/100 ML BAG 100 MG IVPB ×3 (07:01→21:04)
[2024-12-22] MEDS: CALCIUM CHLOR 1,000MG/100ML NS 1,000 MG/100 ML BAG 100 MG IVPB ×2 (07:15→08:05)
[2024-12-22 07:18] LABS: Glucose Point of Care 241 mg/dl (65-105)
--- NOTE | 2024-12-22 07:31 | WPDCNINT ---
Assessment and Plan Assessment and plan (1) Acute pancreatitis: Code(s): K85.90 - Acute pancreatitis without necrosis or infection, unspecified <Sujey Humphreys Student - Last Filed: 12/22/24 09:46> Status: Acute <Sujey Humphreys Student - Last Filed: 12/22/24 09:46> Assessment and Plan: Pt presented to the Emergency Department for sudden onset of abdominal pain, nausea, vomiting, and SOB. In the ED, he was found to have WBC of 21, AST of 512, ALT of 493, and lipase of 20,510. CT abdomen and pelvis was performed at that time and demonstrated small right pleural effusion, minimal left pleural effusion with mild bibasilar pulmonary edema/atelectasis, gallbladder wall thickening, and extensive peripancreatic fluid and inflammatory change c/w acute pancreatitis. He was admitted to the hospitalist following 2 L of IVF fluid bolus and started on Levofloxacin. While admitted, he had a repeat CT chest performed which demonstrated acute increase in pleural effusion size from small to large on the right and underwent an ultrasound-guided thoracentesis without complication. Pleural fluid did not suggest infection but was slightly bloody. Pleural fluid triglycerides, glucose, and albumin are still pending. Pt was started on empiric Levaquin and Flagyl. Repeat labs demonstrated acute kidney injury with low serum bicarb, hypocalcemia, and hyperkalemia. At 21:13 last night, a rapid response was called after pt being found to be tachycardic in the 130s to 140s, hypotensive with systolic of 85, and febrile. Central line was placed in Rt IJ by Dr. Eugene and pt was transferred to the ICU for further evaluation and management. <Sujey Humphreys, Student - Last Filed: 12/22/24 09:46> 12/21: Pt presented to the Emergency Department for sudden onset of abdominal pain, nausea, vomiting, and SOB. In the ED, he was found to have WBC of 21, AST of 512, ALT of 493, [place] [address]. 12/21: CT abdomen and pelvis was performed at that time and demonstrated small right pleural effusion, minimal left pleural effusion with mild bibasilar pulmonary edema/atelectasis, gallbladder wall thickening, and extensive peripancreatic fluid and inflammatory change c/w acute pancreatitis. - He was admitted to the medical floor under hospitalist Service, -was initially given 2 L IV fluid bolus in the ER and started on levofloxacin. 12/21:CT chest performed which demonstrated acute increase in pleural effusion size from small to large on the right and underwent an ultrasound-guided thoracentesis without complication. Pleural fluid did not suggest infection but was slightly bloody. Pleural fluid triglycerides, glucose, and albumin are still pending. Pt was started on empiric Levaquin and Flagyl. Repeat labs demonstrated acute kidney injury with low serum bicarb, hypocalcemia, and hyperkalemia. 12/21: At night patient was hypotensive with with his BP in the 80s, tachycardic her heart rates in the 130s to 140s on the medical floor, additional 2 L IV fluids were given with improvement in blood pressures. Patient was febrile,. Central line was placed in Rt IJ by Dr. Eugene and pt was transferred to the ICU for further evaluation and management. -triglyceride levels were normal, patient denies any alcohol use. No gallstone or cholecystitis present on CT scan of the abdomen and pelvis -lipase trending down, <Jerrica Loredo MD - Last Filed: 12/22/24 13:24> (2) Sepsis: Code(s): A41.9 - Sepsis, unspecified organism <Travis Keys - Last Filed: 12/22/24 09:46> Status: Acute <Travis Keys - Last Filed: 12/22/24 09:46> Assessment and Plan: Patient presented with hypotension, tachycardia, fevers, pancreatitis -lactic acid was checked after fluid administration which was within normal limb -procalcitonin levels are significantly elevated -12/21: Started on Levaquin, Flagyl and vancomycin, will continue -12/21: Blood cultures obtained and pending -adequately fluid-resuscitated -will give albumin for volume expansion -Leukocytosis likely due to acute pancreatitis/pneumonia/sepsis 12/22-WBC count improving, patient also has been anemia. Continue antibiotics as above 12/22/2024: Echocardiogram Summary 1. Definity contrast administered improved wall motion interpretation. 2. Left ventricular chamber dimension is normal. 3. Left ventricular systolic function is normal, estimated at 65-70%. 4. The left ventricular diastolic function is grade I diastolic dysfunction. 5. E/e' 5 is not elevated. 6. There is mild aortic valve sclerosis. 7. There is trace pulmonic regurgitation. 8. There is small circumferential pericardial effusion. <Jerrica Loredo MD - Last Filed: 12/22/24 13:24> (3) Transaminitis: Code(s): R74.01 - Elevation of levels of liver transaminase levels <Sujey Humphreys Student - Last Filed: 12/22/24 09:46> Status: Acute <Sujey Humphreys Student - Last Filed: 12/22/24 09:46> Assessment and Plan: Initial LFTs were AST of 512 and ALT of 493. 12/22- liver transaminase levels are improved with AST of 74 and ALT of 146 <Sujey Garzabhavin Student - Last Filed: 12/22/24 09:46> Initial LFTs were AST of 512 and ALT of 493. 12/22- liver transaminase levels are improved with AST of 74 and ALT of 146 -continue to monitor <Jerrica Loredo MD - Last Filed: 12/22/24 13:24> (4) Aspiration pneumonia: Code(s): J69.0 - Pneumonitis due to inhalation of food and vomit <Sujey Garzabhavin Student - Last Filed: 12/22/24 09:46> Status: Acute <Sujey Humphreys, Student - Last Filed: 12/22/24 09:46> Assessment and Plan: CT abdomen and pelvis was performed in the ED and demonstrated small right pleural effusion, minimal left pleural effusion with mild bibasilar pulmonary edema/atelectasis, gallbladder wall thickening, and extensive peripancreatic fluid and inflammatory change c/w acute pancreatitis. While admitted, he had a repeat CT chest performed which demonstrated acute increase in pleural effusion size from small to large on the right and underwent an ultrasound-guided thoracentesis without complication. Pleural fluid did not suggest infection but was slightly bloody. Pleural fluid triglycerides, glucose, and albumin are still pending. Pt was started on empiric Levaquin and Flagyl. 12/22- Continue Levaquin and Flagyl -Repeat CXR shows small right pleural effusion and questionable minimal bibasilar pulmonary edema <Sujey Garzabhavin Student - Last Filed: 12/22/24 09:46> CT abdomen and pelvis was performed in the ED and demonstrated small right pleural effusion, minimal left pleural effusion with mild bibasilar pulmonary edema/atelectasis, gallbladder wall thickening, and extensive peripancreatic fluid and inflammatory change c/w acute pancreatitis. While admitted, he had a repeat CT chest performed which demonstrated acute increase in pleural effusion size from small to large on the right and underwent an ultrasound-guided thoracentesis without complication. Pleural fluid did not suggest infection but was slightly bloody. Pleural fluid triglycerides, glucose, and albumin are still pending. Pt was started on empiric Levaquin and Flagyl. 12/22- Continue vancomycin, Levaquin and Flagyl -Repeat CXR shows small right pleural effusion and questionable minimal bibasilar pulmonary edema <Jerrica Loredo MD - Last Filed: 12/22/24 13:24> (5) Nausea & vomiting: Code(s): R11.2 - Nausea with vomiting, unspecified <Travis Keys - Last Filed: 12/22/24 09:46> Status: Acute <Sujey Humphreys Student - Last Filed: 12/22/24 09:46> Assessment and Plan: -improved following IVF, will continue to monitor -Zofran 4mg prn <Travis Keys - Last Filed: 12/22/24 09:46> RESOLVED -improved following IVF, will continue to monitor -Zofran 4mg prn <Jerrica Loredo MD - Last Filed: 12/22/24 13:24> (6) Abdominal pain: Code(s): R10.9 - Unspecified abdominal pain <Sujey Humphreys Student - Last Filed: 12/22/24 09:46> Status: Acute <Sujey Humphreys Student - Last Filed: 12/22/24 09:46> Assessment and Plan: -Likely related to acute pancreatitis -Pain is well controlled with Dilaudid <Sujey Humphreys Student - Last Filed: 12/22/24 09:46> -Likely related to acute pancreatitis -Pain is well controlled with Dilaudid <Jerrica Loredo MD - Last Filed: 12/22/24 13:24> Assessment and Plan: DVT prophylaxis: Lovenox SQ Stress ulcer prophylaxis: Protonix Nutrition: NPO Code Status: Full code Critical Care Time Spent: 53 minute Due to a high probability of clinically significant, life threatening deterioration, the patient required my highest level of preparedness to intervene emergently and I personally spent this critical care time directly and personally managing the patient. This critical care time included obtaining a history; examining the patient; pulse oximetry; ordering and review of studies; arranging urgent treatment with development of a management plan; evaluation of patient's response to treatment; frequent reassessment; and discussions with other providers. It was exclusive of separately billable procedures and treating other patients and teaching time. Please see Assessment and Plan section and the rest of the note for further information on patient assessment and treatment This dictation may have been done utilizing a voice recognition system. Attempts have been made to correct errors. However, there may be uncorrected grammatical, spelling, and recognitions errors present. <Jerrica Loredo MD - Last Filed: 12/22/24 13:24> Supervisor [employer] Consult Note Consult date: 12/22/24 <Travis Keys - Last Filed: 12/22/24 09:46> 12/22/24 <Jerrica Loredo MD - Last Filed: 12/22/24 13:24> Reason for consult: Acute pancreatitis <Travis Keys - Last Filed: 12/22/24 09:46> HPI: Ross Persaud II is a 63 year old male w/ PMHx of HTN on Lisinopril, asthma, and HLD on statin, presents for abdominal pain, nausea, and vomiting that began 2 nights ago (12/20/24). Pt reports sudden onset of diffuse abdominal pain and n/v after eating dinner. No other household members had similar symptoms. Shortly after symptom onset, the patient began experiencing shortness of breath which prompted ED evaluation. He reports that his symptoms were constant since onset and gradually worsening. He had not tried anything for his symptoms prior to ED evaluation and denies similar symptoms in the past. Pt denies fever, chest pain, diarrhea, hematemesis, and blood in the stool. Pt reports that he drinks 5 beers spread out throughout the week. He denies smoking tobacco or marijuana, but notes that he takes 1 THC gummy every night before bed. He denies any other recreational drug use. Pt denies history of Ozempic or Mounjaro use. <Travis Keys - Last Filed: 12/22/24 09:46> Ross Persaud II is a 63 year old male w/ PMHx of HTN on Lisinopril, asthma, and HLD on statin, presents for abdominal pain, nausea, and vomiting that began 2 nights ago (12/20/24). Pt reports sudden onset of diffuse abdominal pain and n/v after eating dinner. No other household members had similar symptoms. Shortly after symptom onset, the patient began experiencing shortness of breath which prompted ED evaluation. He reports that his symptoms were constant since onset and gradually worsening. He had not tried anything for his symptoms prior to ED evaluation and denies similar symptoms in the past. Pt denies fever, chest pain, diarrhea, hematemesis, and blood in the stool. Pt reports that he drinks 5 beers spread out throughout the week. He denies smoking tobacco or marijuana, but notes that he takes 1 THC gummy every night before bed. He denies any other recreational drug use. Pt denies history of Ozempic or Mounjaro use. Patient was transferred on 12/21 overnight from the medical floor with tachycardia in the 130s to 150s, hypotensive with systolic blood pressures in the 80s, diaphoretic, generalized abdominal pain and fevers with a T-max of 101?. Patient was given additional IV fluids overnight, with improvement in blood pressures, central line was inserted and the right IJ by Dr. Eugene. Did not have to start any vasopressors 12/21: Thoracentesis done 03/23: Patient seen and examined the ICU, complains of abdominal pain, denies any nausea or vomiting at this time. Complains of abdominal distention also. Patient is hemodynamically stable, tachycardic in the 130s. With O2 requirements have gone up, currently on Vapotherm 80% FiO2 and 45 L flow rate. Continues to have adequate urine output <Jerrica Loredo MD - Last Filed: 12/22/24 13:24> Review of Systems Review of Systems: All systems reviewed & are unremarkable except as noted in HPI and below <Travis Keys - Last Filed: 12/22/24 09:46> PMFSH Family History Family History: Family History Sibling Family history of thyroid disease Patient's brother is in good health Mother Patient's mother is in good health Father Carcinoma of colon <Sujey Humphreys, - Last Filed: 12/22/24 09:46> Social History Social History: Social History Smoking status: Never smoker Alcohol intake: current Drinks per week: 5 Substance use: never Substance use type: does not use Do You Feel Safe in your Home?: Yes Lack of Transportation: No Lack of Food: Never True Current Housing: I Have Housing Concerned About Future Housing: No Difficulty Paying Gas/Electric Bills: No Difficulty Paying for Meds: No Currently Unemployed: No Education: Associate Degree Difficulty w/ Childcare or Family Care: No Spiritual care concerns: No <Sujey Humphreys, - Last Filed: 12/22/24 09:46> Meds Home Medications and Allergies Home medications: Home Medications ?Medication ?Instructions ?Recorded ?Confirmed ?Type albuterol sulfate 90 mcg/actuation 2 puff inhalation Q4H PRN 12/21/24 12/21/24 History aerosol inhaler shortness of breath or wheezing budesonide-formoterol HFA 160 2 puff inhalation Q12H PRN SOB 12/21/24 12/21/24 History mcg-4.5 mcg/actuation aerosol inhaler citalopram 10 mg tablet 10 mg PO DAILY 12/21/24 12/21/24 History lisinopril 40 mg tablet 40 mg PO DAILY 12/21/24 12/21/24 History pravastatin 40 mg tablet 40 mg PO HS 12/21/24 12/21/24 History <Sujey Humphreys, - Last Filed: 12/22/24 09:46> Allergies/Adverse reactions: Allergies Allergy/AdvReac Type Severity Reaction Status Date / Time Penicillins Allergy Unknown Verified 12/12/14 14:59 penicillin Allergy Unknown Uncoded 02/27/03 12:39 <Sujey Humphreys, - Last Filed: 12/22/24 09:46> Vital Signs Vital Signs - 24 hr 12/21/24 08:00 12/21/24 10:52 12/21/24 13:36 Temperature 97.5 F L Pulse Rate 109 H Respiratory Rate 18 Blood Pressure 102/83 Pulse Oximetry 96 95 Oxygen Delivery Room Air Nasal Cannula Oxygen Flow Rate 1 12/21/24 20:30 12/21/24 20:30 12/21/24 21:13 Temperature 101.5 F H 101.5 F H Pulse Rate Respiratory Rate Blood Pressure 84/60 L 85/65 L Pulse Oximetry 95 Oxygen Delivery Room Air Oxygen Flow Rate 12/21/24 21:15 12/21/24 21:35 12/21/24 22:00 Temperature 101.5 F H 100.4 F H Pulse Rate 84 110 H 117 H Respiratory Rate 22 H 21 H 30 H Blood Pressure 85/65 L 83/64 L Pulse Oximetry 92 94 94 Oxygen Delivery Room Air Oxygen Flow Rate 12/21/24 23:37 12/22/24 00:00 12/22/24 00:34 Temperature 100.1 F H Pulse Rate 110 H 113 H 110 H Respiratory Rate 21 H 14 21 H Blood Pressure 111/65 Pulse Oximetry 94 90 Oxygen Delivery Room Air Oxygen Flow Rate 12/22/24 01:15 12/22/24 01:45 12/22/24 02:00 Temperature 100.2 F H Pulse Rate 83 122 H 123 H Respiratory Rate 21 H Blood Pressure 119/70 Pulse Oximetry 91 91 90 Oxygen Delivery CPAP CPAP Oxygen Flow Rate 12/22/24 03:37 12/22/24 04:00 12/22/24 06:00 Temperature 99.9 F H 99.9 F H Pulse Rate 110 H 114 H 90 Respiratory Rate 21 H 21 H 12 Blood Pressure 93/59 L 118/87 Pulse Oximetry 94 90 90 Oxygen Delivery Room Air Oxygen Flow Rate <Sujey Humphreys, Student - Last Filed: 12/22/24 09:46> Exam Narrative: General: No acute distress HEENT:? Pupils equal and reactive, sclera is clear Neck:? Supple Respiratory:? Decreased breath sounds Rt side, normal breath sounds on the Lt, no wheezing Cardiac:? S1-S2 is normal, Tachycardic, regular rhythm Abdomen:? Soft, normal bowel sounds, Distended abdomen, generalized tenderness with palpation Extremities:? Lower extremities are warm, no edema, palpable pedal pulses Neuro:? Alert and Oriented Skin:? Warm, dry, and intact. Few scattered, raised papules on Lt lower pannus with no surrounding erythema, fluctuance, or purulent drainage Psych: Normal affect <Sujey Humphreys, Student - Last Filed: 12/22/24 09:46> General: Pleasant gentleman, in no acute distress HEENT:? Pupils equal and reactive, sclera is clear Neck:? Supple Respiratory:? Decreased breath sounds Rt side, normal breath sounds on the Lt, no wheezing Cardiac:? S1-S2 is normal, Tachycardic, regular rhythm Abdomen:? Soft, hypoactive bowel sounds, Distended abdomen, generalized tenderness with palpation Extremities:? Lower extremities are warm, no edema, palpable pedal pulses Neuro:? Alert and Oriented Skin:? Warm, dry, and intact. Few scattered, raised papules on Lt lower pannus with no surrounding erythema, fluctuance, or purulent drainage Psych: Normal affect <Jerrica Loredo MD - Last Filed: 12/22/24 13:24> Results Labs CBC & Chem 7: 12/22/24 05:08 12/22/24 05:08 <Sujey Humphreys, Student - Last Filed: 12/22/24 09:46> Labs: Short CBC 12/21/24 12/21/24 12/21/24 Range/Units 15:21 21:26 21:26 WBC 19.0 H Cancelled 21.0 H (4.5-10.0) K/mm3 Hgb 17.6 Cancelled (14.0-18.0) g/dL Hct 53.5 H (42.0-52.0) % Plt Count 282 (150-375) k/mm3 12/21/24 12/21/24 12/21/24 Range/Units 21:26 21:26 21:26 WBC (4.5-10.0) K/mm3 Hgb 17.7 (14.0-18.0) g/dL Hct Cancelled 53.8 H (42.0-52.0) % Plt Count Cancelled 276 (150-375) k/mm3 12/22/24 Range/Units 05:08 WBC 16.4 H (4.5-10.0) K/mm3 Hgb 15.4 (14.0-18.0) g/dL Hct 47.1 (42.0-52.0) % Plt Count 200 (150-375) k/mm3 BMP 12/21/24 12/21/24 12/22/24 15:21 21:26 05:08 Sodium 136 L 138 137 Potassium 5.9 H 5.7 H 4.2 Chloride 109 H 110 H 105 Carbon Dioxide 17 L 14 L 27 BUN 35 H D 43 H 49 H Creatinine 1.24 2.12 H 1.64 H Glucose 176 H 164 H 221 H Calcium 6.0 L 5.9 L* 5.4 L* Cardiac Enzymes 12/21/24 Range/Units 21:26 Troponin I 0.025 (0.000-0.034) ng/mL Liver Function 12/21/24 12/21/24 12/22/24 Range/Units 15:21 21:26 05:08 Total Bilirubin 1.1 1.2 1.1 (0.2-1.3) mg/dL AST 164 H 117 H 74 H (17-59) U/L ALT 313 H 240 H 146 H (6-50) U/L Alkaline Phosphatase 67 58 43 (38-126) U/L Albumin 4.3 4.2 3.0 L (3.5-5.1) g/dL <Travis Keys - Last Filed: 12/22/24 09:46> Quality VTE Prophylaxis VTE prophylaxis: pharmacologic ordered <Jerrica Loredo MD - Last Filed: 12/22/24 13:24> Hospitalist MIPS Advance Care Plan I have confirmed that the patient's Advanced Care Plan is present, code status is documented, or surrogate decision maker is listed in patient medical record.: Yes <Jerrica Loredo MD - Last Filed: 12/22/24 13:24> Medication Reconciliation I have utilized all available resources to obtain, update and review the patients current medications (includes all prescriptions, OTC, herbals, cannabis, and nutritional supplements).: Yes <Jerrica Loredo MD - Last Filed: 12/22/24 13:24> Attestation Student Attestation H&P performed by MADISON Mclain-IV <Travis Keys - Last Filed: 12/22/24 09:46> Supervising Provider Attestation Patient independently seen and examined by me, agree with above assessment and plan, have made surgeon changes were necessary. <Jerrica Loredo MD - Last Filed: 12/22/24 13:24>
[2024-12-22 07:37] LABS: Lipase 2366 U/L (23-300)
[2024-12-22] MEDS: INSULIN ASPART (*BKC) 100 UNITS/ML SUB-Q (07:59)
[2024-12-22] MEDS: ENOXAPARIN 40 MG/0.4 ML SYRINGE SUB-Q (08:00)
[2024-12-22 08:03] LABS: Add Urine Microscopic? YES; Appearance Urine Turbid (Clear); Bacteria Urine None Seen /hpf; Bilirubin Urine 1+ (Negative); Blood Urine 2+ (Negative); Color Urine Dark Yellow (Yellow); Glucose Urine UA Trace mg/dL (Negative); Ketones Urine Trace mg/dL (Negative); Leukocyte Esterase Ur Trace LEU/UL (Negative); Need Manual Microscopic Reviewed; Nitrate Urine Negative (Negative); Protein Urine 2+ mg/dL (Negative); Specific Grav Ur 1.027 (1.001-1.035); Squamous Epithelial Cell Urine Moderate /hpf (Few); WBC Urine 0-5 /hpf (0-3)
[2024-12-22] MEDS: FLUTICASONE/SALMETEROL 115-21 MCG INHALER 1 PUFF 2 PUFF INHALATION ×2 (08:09→20:20)
[2024-12-22 08:49] LABS: MRSA (PCR) NOT DETECTED (NOT DETECTE)
[2024-12-22] MEDS: ALBUMIN HUMAN 25% 25 GM/100 ML 100 ML IVPB ×3 (09:36→17:09)
[2024-12-22 10:12] LABS: Triglycerides 86 mg/dL (<150)
--- NOTE | 2024-12-22 10:19 | P.CDI_ITS ---
CDI Query Clarification Request Please clarify if sepsis has been ruled in or ruled out, Please clarify if sepsis was present on admission - yes- condition was present on admission -no- condition was not present at the time of inpatient admission and it developed during the inpatient stay -w- Provider is unable to clinically determine whether condition is present on admission The medical chart reflects the following: ER documentation: Clinical Impression: Acute pancreatitis, Transaminitis, Aspiration pneumonia, Leukocytosis Rapid response 12/21 Rapid response was called at 21:13. Patient was found to be tachycardic with heart rates in the 130s to 140s and hypotensive with systolic blood pressures of 85. Patient was reporting generalized pain and was overtly diaphoretic. Patient spiked a fever greater than 101. 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 The patient had had initial CT of the abdomen pelvis in the ER. He had a repeat CT of the chest earlier today which demonstrated acute increase in pleural effusion size from small to large on the right. He underwent ultrasound-guided thoracentesis which was uncomplicated. Pleural fluid does not suggest infection but was slightly bloody. Pleural fluid triglycerides glucose and albumin are still pending. Patient has been started on empiric antibiotic therapy with Levaquin and Flagyl on admission and has blood cultures pending. This afternoon repeat labs demonstrated acute kidney injury with low serum bicarb and hyperkalemia. Nursing staff reports that hyperkalemia has not yet been treated. Patient's labs at that time also demonstrated hypocalcemia which was acute with a calcium of 6. CT of the chest also demonstrated collapsed inferior vena cava findings consistent with severe hypovolemia despite patient having received 2 L of fluid bolus in the ER and having LR running at 200 mL for most of the day. The patient had had fair urine output but urine was dark. 12/22 Sepsis documented Patient was transferred on 12/21 overnight from the medical floor with tachycardia in the 130s to 150s, hypotensive with systolic blood pressures in the 80s, diaphoretic, generalized abdominal pain and fevers with a T-max of 101?. Patient was given additional IV fluids overnight, with improvement in blood pressures, central line was inserted and the right IJ by Dr. Eugene. Did not have to start any vasopressors 12/21: Thoracentesis done 03/23: Patient seen and examined the ICU, complains of abdominal pain, denies any nausea or vomiting at this time. Complains of abdominal distention also. Patient is hemodynamically stable, tachycardic in the 130s. With O2 requirements have gone up, currently on Vapotherm 80% FiO2 and 45 L flow rate. Continues to have adequate urine output Vancomycin IV x1 Levofloxacin 750mg x1 IV, now Q 24 Flagyl 500mg IV Q8 <Citlaly Lau RN - Last Filed: 12/22/24 10:34> Clarified Diagnosis Clarified Diagnosis: no- condition was not present at the time of inpatient admission and it developed during the inpatient stay <Divya Wen MD - Last Filed: 12/22/24 10:59>
[2024-12-22] MEDS: PERFLUTREN LIPID MICROSPHERES 1.5 ML VIAL DILUTED TO 10 ML TOTAL VOLUME IV PUSH (11:11)
[2024-12-22] MEDS: PANTOPRAZOLE SODIUM IV 40 MG VIAL IV PUSH (11:51)
--- NOTE | 2024-12-22 11:54 | IVDEFINITY ---
Prior to administration of IV Definity the patient was educated on the risks and benefits of the imaging enhancing agent including potential adverse side effects. The patient verbalized understanding. Allergies were verified. No exclusion criteria were identified and at least one of the following inclusion criteria were met: 1) physician request, 2) patient technically difficult to image (per the [place] [employer] guidelines of two or more segments not discernable within the apical view), or 3) questionable left ventricular function. ?
[2024-12-22 11:59] LABS: Glucose Point of Care 122 mg/dl (65-105)
[2024-12-22 13:54] LABS: Alveolar/Arterial O2 Gradient 362.3 mmHg; Base Excess ABG 0.7 mEq/l (+/-2.0); Carboxyhemoglobin 0.6 % THb (0-2.0); Fractional Inspired Oxygen 70 %; HCO3 ABG 24.6 mEq/l (22.0-26.0); Methemoglobin ABG 0.3 %THb (0-1.5); Oxygen Content ABG 19.6 %vol (16.0-22.0); Oxygen Saturation ABG 97.6 % (95.0-100.0); PCO2 ABG 37.3 mmHg (35.0-45.0); PO2 ABG 96.7 mmHg (80.0-100.0); PO2 FiO2 Ratio Arterial Blood 1.38 %; Reduced Hemoglobin 2.1 %THb (0-5.0); Total Hemoglobin 14.3 g/dL (12.0-18.0); pH ABG 7.437 (7.350-7.450)
[2024-12-22 13:55] LABS: Device NON-INVASIVE VENT; Modified Allen's Test Pass; Non-Invasive Inspiratory Pressure 12 CMH2O; Non-Invasive Vent Rate 16 /MIN; Site Drawn RIGHT RADIAL
[2024-12-22 13:56] LABS: Non-Invasive Expiratory Pressure 6 CMH2O
[2024-12-22] MEDS: LACTATED RINGERS 1,000 ML 75 ML IV CONT (14:30)
--- NOTE | 2024-12-22 15:17 | WPDGIPROGNO ---
Progress Note: A&P Assessment and Plan (1) Acute pancreatitis: Code(s): K85.90 - Acute pancreatitis without necrosis or infection, unspecified Status: Acute Assessment and Plan: Patient with severe acute pancreatitis, presenting very early in the clinical course. The current findings are likely a manifestation of severe systemic inflammation secondary to SIRS. Continue intensive care unit management with supportive measures and correction of metabolic parameters as needed. Given the very early presentation and low initial suspicion for pancreatic necrosis, a repeat CT scan is not indicated at this time. However, anticipating a prolonged hospital course, early initiation of enteral nutrition should be considered. Subjective Date/time seen: 12/22/24 15:17 Interval history: The patient was transferred to the ICU last night, due to general deterioration including metabolic acidosis, worsening renal failure fever and tachycardia. Exam Narrative: Lungs: Decreased bilateral sounds in both bases. Abdomen distended, tender in the epigastric area and both upper quadrants. Rest of the exam within normal limits. Objective Data Vital Signs Vital Signs: Vital Signs - 24 hr 12/21/24 20:30 12/21/24 20:30 12/21/24 21:13 Temperature 101.5 F H 101.5 F H Pulse Rate Respiratory Rate Blood Pressure 84/60 L 85/65 L Pulse Oximetry 95 Oxygen Delivery Room Air Oxygen Flow Rate Fraction of Inspired Oxygen 12/21/24 21:15 12/21/24 21:35 12/21/24 22:00 Temperature 101.5 F H 100.4 F H Pulse Rate 84 110 H 117 H Respiratory Rate 22 H 21 H 30 H Blood Pressure 85/65 L 83/64 L Pulse Oximetry 92 94 94 Oxygen Delivery Room Air Oxygen Flow Rate Fraction of Inspired Oxygen 12/21/24 23:37 12/22/24 00:00 12/22/24 00:34 Temperature 100.1 F H Pulse Rate 110 H 113 H 110 H Respiratory Rate 21 H 14 21 H Blood Pressure 111/65 Pulse Oximetry 94 90 Oxygen Delivery Room Air Oxygen Flow Rate Fraction of Inspired Oxygen 12/22/24 01:15 12/22/24 01:45 12/22/24 02:00 Temperature 100.2 F H Pulse Rate 83 122 H 123 H Respiratory Rate 21 H Blood Pressure 119/70 Pulse Oximetry 91 91 90 Oxygen Delivery CPAP CPAP Oxygen Flow Rate Fraction of Inspired Oxygen 12/22/24 03:37 12/22/24 04:00 12/22/24 06:00 Temperature 99.9 F H 99.9 F H Pulse Rate 110 H 114 H 90 Respiratory Rate 21 H 21 H 12 Blood Pressure 93/59 L 118/87 Pulse Oximetry 94 90 90 Oxygen Delivery Room Air Oxygen Flow Rate Fraction of Inspired Oxygen 12/22/24 07:55 12/22/24 08:00 12/22/24 08:00 Temperature 100.0 F H Pulse Rate 120 H 118 H Respiratory Rate 21 H 21 H Blood Pressure 124/93 H Pulse Oximetry 94 93 93 Oxygen Delivery High Flow Therapy with Na High Flow Therapy with Na Oxygen Flow Rate 45 45 Fraction of Inspired Oxygen 80 80 12/22/24 08:00 12/22/24 08:09 12/22/24 10:00 Temperature 99.0 F Pulse Rate 121 H 122 H 131 H Respiratory Rate 20 18 Blood Pressure 112/92 H Pulse Oximetry 91 Oxygen Delivery Oxygen Flow Rate Fraction of Inspired Oxygen 12/22/24 10:00 12/22/24 10:43 12/22/24 12:00 Temperature Pulse Rate 131 H 128 H Respiratory Rate 24 H Blood Pressure Pulse Oximetry 93 Oxygen Delivery BiPAP BiPAP Oxygen Flow Rate Fraction of Inspired Oxygen 80 12/22/24 12:00 12/22/24 12:00 12/22/24 13:52 Temperature 99.2 F Pulse Rate 123 H 125 H 123 H Respiratory Rate 23 H 17 Blood Pressure 100/75 Pulse Oximetry 89 L 92 Oxygen Delivery BiPAP Oxygen Flow Rate Fraction of Inspired Oxygen 12/22/24 14:00 12/22/24 14:00 12/22/24 14:08 Temperature 99.8 F H Pulse Rate 121 H 121 H 121 H Respiratory Rate 17 20 Blood Pressure 113/69 Pulse Oximetry 89 L 94 Oxygen Delivery High Flow Therapy with Na Oxygen Flow Rate 45 Fraction of Inspired Oxygen 60 Intake/Output Intake/Output: Intake & Output 12/19/24 12/20/24 12/21/24 12/22/24 23:59 23:59 23:59 23:59 Intake Total 3100 2473.0 Output Total 650 750 Balance 2450 1723.0 Meds/Results Medications: Active Medications Generic Name Dose Route Start Last Admin Trade Name Freq PRN Reason Stop Dose Admin Dextrose 12.5 gm 12/21/24 16:02 Dextrose 50% 25 Gm/50 Ml Syringe IV PUSH PRN PRN Hypoglycemia Protocol Enoxaparin Sodium 40 mg 12/22/24 09:00 12/22/24 08:00 Enoxaparin 40 Mg/0.4 Ml Syringe SUB-Q 40 mg DAILY LUIS Administration Glucagon 1 mg 12/21/24 16:02 Glucagon For Inj 1 Mg Vial IM PRN PRN Hypoglycemia Protocol Glucose 15 gm 12/21/24 16:02 Glucose Oral Gel 15 Gm Of Glucse In 37.5 Gm Tube PO PRN PRN Hypoglycemia Protocol Hydromorphone HCl 0.5 mg 12/21/24 04:20 12/22/24 14:55 Hydromorphone Hcl Inj (*Crx) 2 Mg/Ml Vial IV PUSH 0.5 mg Q2H PRN Administration Breakthrough Pain Levofloxacin/Dextrose 750 mg in 150 mls @ 100 mls/hr 12/22/24 06:00 12/22/24 08:28 Levaquin 750 Mg/D5w 150 Ml IVPB Infused Q24H LUIS Infusion Metronidazole 500 mg in 100 mls @ 100 mls/hr 12/21/24 14:00 12/22/24 13:38 Flagyl 500 Mg/Iso Soln 100 Ml IVPB 100 mls/hr Q8H LUIS Administration Dextrose 1,000 mls @ 100 mls/hr 12/21/24 16:02 Dextrose 5% 1,000 Ml IVPB PRN PRN Hypoglycemia Protocol Albumin Human 100 mls @ 60 mls/hr 12/22/24 09:28 12/22/24 13:32 Albutein IVPB 12/23/24 13:39 Infused Q6HR LUIS Infusion Lactated Ringer's 1,000 mls @ 75 mls/hr 12/22/24 14:00 12/22/24 14:30 Lr - Lactated Ringers Iv IV CONT 75 mls/hr .[id number] LUIS Administration Insulin Aspart 2 - 5 units 12/21/24 17:00 12/22/24 11:57 Insulin Aspart (*Bkc) 100 Units/Ml SUB-Q Not Given TIDWM LUIS Protocol Ipratropium [place] 0.5 mg 12/22/24 14:50 Ipratropium Br 0.02% Inh Soln 0.5 Mg/2.5 Ml Vial INHALATION Q6HRT LUIS Levalbuterol HCl 0.63 mg 12/22/24 14:50 Levalbuterol Neb 1.25 Mg/3 Ml INHALATION Q6HRT LUIS Ondansetron HCl 4 mg 12/21/24 04:21 12/21/24 18:42 Ondansetron Inj 4 Mg/2 Ml Vial IV PUSH 4 mg Q8H PRN Administration Vomiting Pantoprazole Sodium 40 mg 12/23/24 09:00 Pantoprazole Sodium Iv 40 Mg Vial IV PUSH QAM LUIS Fluticasone/Salmeterol 2 puff 12/22/24 08:00 12/22/24 08:09 Fluticasone/Salmeterol 115-21 Mcg Inhaler 1 Puff INHALATION 2 puff Q12HRT LUIS Administration Vancomycin HCl 1 each 12/21/24 22:44 Vancomycin For Acute Kidney Injury IVPB PRN PRN Vancomycin Protocol Radiology Results: ITS Impressions Abdomen/Pelvis CT 12/21/24 06:41 Impression: Findings compatible with acute pancreatitis, as detailed above. Extensive apparent soft tissue thickening or inflammatory change surrounding the SMV and main portal vein in particular. Superimposed/associated vasculitis is a consideration. No pseudoaneurysm/aneurysm identified on this exam. Small right pleural effusion and minimal left pleural effusion with mild bibasilar pulmonary edema/atelectasis. Gallbladder wall thickening is likely reactive. 6 cm left renal cyst with 1.3 cm area of mural nodularity. Neoplastic lesion is not excluded. Pre and postcontrast renal MR advised to best assess for enhancing soft tissue lesion. Chest CT 12/21/24 11:14 IMPRESSION: Large right-sided pleural effusion with adjacent consolidation. Small left-sided pleural effusion with adjacent atelectasis. Additional findings consistent with severe hypovolemia. Upper Quadrant Ultrasound 12/21/24 12:24 IMPRESSION: Gallbladder distention with intra-abdominal fluid, related to patient's acute pancreatitis, rather than designated gallbladder disease. Requested evaluation of the superior mesenteric artery is also patent, as detailed above. Thoracentesis Ultrasound 12/21/24 18:20 IMPRESSION: 1. Successful ultrasound-guided thoracentesis yielding 650 mL of dark [id number] fluid. Chest X-Ray 12/22/24 07:24 Impression: Small right pleural effusion and questionable minimal bibasilar pulmonary edema. Support line, as above. Labs Labs: Laboratory Results - last 24 hr 12/21/24 12/21/24 12/21/24 15:18 15:21 16:05 WBC 19.0 H RBC 6.00 Hgb 17.6 Hct 53.5 H MCV 89.2 MCH 29.3 MCHC 32.9 RDW 13.0 Plt Count 282 MPV 9.4 Immature Gran % (Auto) 0.7 H Neut % (Auto) 85.8 H Lymph % (Auto) 4.0 L [place] % (Auto) 9.3 H Eos % (Auto) 0.0 Baso % (Auto) 0.2 Lymph # (Auto) 0.76 L [place] # (Auto) 1.8 H Eos # (Auto) 0.0 Baso # (Auto) 0.0 Abs Immat Gran (auto) 0.14 H Absolute Neuts (auto) 16.3 H Absolute Nucleated RBC 0.000 Total Counted Neutrophils % (Manual) Band Neutrophils % Lymphocytes % (Manual) Monocytes % (Manual) Nucleated RBC % 0.0 Abs Neuts (Manual) Abs Lymphs (Manual) Abs Monocytes (Manual) Platelet Estimate % Immature Plt Fraction Ovalocytes [place] Cells Schistocytes PT 15.2 H INR 1.2 APTT 24.1 Fibrinogen D-Dimer Puncture Site ABG pH ABG pCO2 ABG pO2 ABG PO2/FiO2 Ratio ABG HCO3 ABG O2 Saturation ABG O2 Content ABG Base Excess A-a Gradient Oxyhemoglobin Carboxyhemoglobin Methemoglobin Reduced Hemoglobin Total Hemoglobin O2 Delivery Device O2 Liters/Min Vent Rate FiO2 Expiratory Pressure Inspiratory Pressure Sodium 136 L Potassium 5.9 H Chloride 109 H Carbon Dioxide 17 L Anion Gap 10 BUN 35 H D Creatinine 1.24 Estim Creat Clear Calc 63 Estimated GFR 59 Glucose 176 H POC Capillary Glucose Lactic Acid Calcium 6.0 L Phosphorus Magnesium Total Bilirubin 1.1 AST 164 H ALT 313 H Alkaline Phosphatase 67 Lactate Dehydrogenase 581 H Troponin I Total Protein 7.0 Albumin 4.3 Triglycerides Lipase Procalcitonin Urine Color Urine Appearance Urine pH Ur Specific [place] Urine Protein Urine Glucose (UA) Urine Ketones Ur Blood (Man) Urine Nitrate Urine Bilirubin Urine Urobilinogen Add Ur Microanalysis Leukocyte Esterase Rfl Urine RBC Urine WBC Ur Squamous Epith Cells Urine Bacteria Urine Casts Pleural Fluid Source Pleural Color Pleural Appearance Pleural pH Pleural RBC Pleural Nuc Cells Pleural Neutrophils Pleural Lymphocytes Pleural Macrophages Nasal MRSA (PCR) 12/21/24 12/21/24 12/21/24 17:28 20:31 21:15 WBC RBC Hgb Hct MCV MCH MCHC RDW Plt Count MPV Immature Gran % (Auto) Neut % (Auto) Lymph % (Auto) [place] % (Auto) Eos % (Auto) Baso % (Auto) Lymph # (Auto) [place] # (Auto) Eos # (Auto) Baso # (Auto) Abs Immat Gran (auto) Absolute Neuts (auto) Absolute Nucleated RBC Total Counted Neutrophils % (Manual) Band Neutrophils % Lymphocytes % (Manual) Monocytes % (Manual) Nucleated RBC % Abs Neuts (Manual) Abs Lymphs (Manual) Abs Monocytes (Manual) Platelet Estimate % Immature Plt Fraction Ovalocytes [place] Cells Schistocytes PT INR APTT Fibrinogen D-Dimer Puncture Site ABG pH ABG pCO2 ABG pO2 ABG PO2/FiO2 Ratio ABG HCO3 ABG O2 Saturation ABG O2 Content ABG Base Excess A-a Gradient Oxyhemoglobin Carboxyhemoglobin Methemoglobin Reduced Hemoglobin Total Hemoglobin O2 Delivery Device O2 Liters/Min Vent Rate FiO2 Expiratory Pressure Inspiratory Pressure Sodium Potassium Chloride Carbon Dioxide Anion Gap BUN Creatinine Estim Creat Clear Calc Estimated GFR Glucose POC Capillary Glucose 176 H 172 H Lactic Acid Calcium Phosphorus Magnesium Total Bilirubin AST ALT Alkaline Phosphatase Lactate Dehydrogenase Troponin I Total Protein Albumin Triglycerides Lipase Procalcitonin Urine Color Urine Appearance Urine pH Ur Specific [place] Urine Protein Urine Glucose (UA) Urine Ketones Ur Blood (Man) Urine Nitrate Urine Bilirubin Urine Urobilinogen Add Ur Microanalysis Leukocyte Esterase Rfl Urine RBC Urine WBC Ur Squamous Epith Cells Urine Bacteria Urine Casts Pleural Fluid Source Pleural fluid Pleural Color Red Pleural Appearance Bloody Pleural pH 7.328 Pleural RBC 30865 Pleural Nuc Cells 128 Pleural Neutrophils 15 Pleural Lymphocytes 58 Pleural Macrophages 27 Nasal MRSA (PCR) 12/21/24 12/21/24 12/21/24 21:26 21:26 21:26 WBC Cancelled 21.0 H RBC Cancelled 6.03 Hgb Cancelled Hct MCV MCH MCHC RDW Plt Count MPV Immature Gran % (Auto) Neut % (Auto) Lymph % (Auto) [place] % (Auto) Eos % (Auto) Baso % (Auto) Lymph # (Auto) [place] # (Auto) Eos # (Auto) Baso # (Auto) Abs Immat Gran (auto) Absolute Neuts (auto) Absolute Nucleated RBC Total Counted Neutrophils % (Manual) Band Neutrophils % Lymphocytes % (Manual) Monocytes % (Manual) Nucleated RBC % Abs Neuts (Manual) Abs Lymphs (Manual) Abs Monocytes (Manual) Platelet Estimate % Immature Plt Fraction Ovalocytes [place] Cells Schistocytes PT INR APTT Fibrinogen D-Dimer Puncture Site ABG pH ABG pCO2 ABG pO2 ABG PO2/FiO2 Ratio ABG HCO3 ABG O2 Saturation ABG O2 Content ABG Base Excess A-a Gradient Oxyhemoglobin Carboxyhemoglobin Methemoglobin Reduced Hemoglobin Total Hemoglobin O2 Delivery Device O2 Liters/Min Vent Rate FiO2 Expiratory Pressure Inspiratory Pressure Sodium Potassium Chloride Carbon Dioxide Anion Gap BUN Creatinine Estim Creat Clear Calc Estimated GFR Glucose POC Capillary Glucose Lactic Acid Calcium Phosphorus Magnesium Total Bilirubin AST ALT Alkaline Phosphatase Lactate Dehydrogenase Troponin I Total Protein Albumin Triglycerides Lipase Procalcitonin Urine Color Urine Appearance Urine pH Ur Specific [place] Urine Protein Urine Glucose (UA) Urine Ketones Ur Blood (Man) Urine Nitrate Urine Bilirubin Urine Urobilinogen Add Ur Microanalysis Leukocyte Esterase Rfl Urine RBC Urine WBC Ur Squamous Epith Cells Urine Bacteria Urine Casts Pleural Fluid Source Pleural Color Pleural Appearance Pleural pH Pleural RBC Pleural Nuc Cells Pleural Neutrophils Pleural Lymphocytes Pleural Macrophages Nasal MRSA (PCR) 12/21/24 12/21/24 12/21/24 21:26 21:26 21:26 WBC RBC Hgb 17.7 Hct Cancelled 53.8 H MCV Cancelled 89.2 MCH Cancelled MCHC RDW Plt Count MPV Immature Gran % (Auto) Neut % (Auto) Lymph % (Auto) [place] % (Auto) Eos % (Auto) Baso % (Auto) Lymph # (Auto) [place] # (Auto) Eos # (Auto) Baso # (Auto) Abs Immat Gran (auto) Absolute Neuts (auto) Absolute Nucleated RBC Total Counted Neutrophils % (Manual) Band Neutrophils % Lymphocytes % (Manual) Monocytes % (Manual) Nucleated RBC % Abs Neuts (Manual) Abs Lymphs (Manual) Abs Monocytes (Manual) Platelet Estimate % Immature Plt Fraction Ovalocytes [place] Cells Schistocytes PT INR APTT Fibrinogen D-Dimer Puncture Site ABG pH ABG pCO2 ABG pO2 ABG PO2/FiO2 Ratio ABG HCO3 ABG O2 Saturation ABG O2 Content ABG Base Excess A-a Gradient Oxyhemoglobin Carboxyhemoglobin Methemoglobin Reduced Hemoglobin Total Hemoglobin O2 Delivery Device O2 Liters/Min Vent Rate FiO2 Expiratory Pressure Inspiratory Pressure Sodium Potassium Chloride Carbon Dioxide Anion Gap BUN Creatinine Estim Creat Clear Calc Estimated GFR Glucose POC Capillary Glucose Lactic Acid Calcium Phosphorus Magnesium Total Bilirubin AST ALT Alkaline Phosphatase Lactate Dehydrogenase Troponin I Total Protein Albumin Triglycerides Lipase Procalcitonin Urine Color Urine Appearance Urine pH Ur Specific [place] Urine Protein Urine Glucose (UA) Urine Ketones Ur Blood (Man) Urine Nitrate Urine Bilirubin Urine Urobilinogen Add Ur Microanalysis Leukocyte Esterase Rfl Urine RBC Urine WBC Ur Squamous Epith Cells Urine Bacteria Urine Casts Pleural Fluid Source Pleural Color Pleural Appearance Pleural pH Pleural RBC Pleural Nuc Cells Pleural Neutrophils Pleural Lymphocytes Pleural Macrophages Nasal MRSA (PCR) 12/21/24 12/21/24 12/21/24 21:26 21:26 21:26 WBC RBC Hgb Hct MCV MCH 29.4 MCHC Cancelled 32.9 RDW Cancelled 13.2 Plt Count Cancelled MPV Immature Gran % (Auto) Neut % (Auto) Lymph % (Auto) [place] % (Auto) Eos % (Auto) Baso % (Auto) Lymph # (Auto) [place] # (Auto) Eos # (Auto) Baso # (Auto) Abs Immat Gran (auto) Absolute Neuts (auto) Absolute Nucleated RBC Total Counted Neutrophils % (Manual) Band Neutrophils % Lymphocytes % (Manual) Monocytes % (Manual) Nucleated RBC % Abs Neuts (Manual) Abs Lymphs (Manual) Abs Monocytes (Manual) Platelet Estimate % Immature Plt Fraction Ovalocytes [place] Cells Schistocytes PT INR APTT Fibrinogen D-Dimer Puncture Site ABG pH ABG pCO2 ABG pO2 ABG PO2/FiO2 Ratio ABG HCO3 ABG O2 Saturation ABG O2 Content ABG Base Excess A-a Gradient Oxyhemoglobin Carboxyhemoglobin Methemoglobin Reduced Hemoglobin Total Hemoglobin O2 Delivery Device O2 Liters/Min Vent Rate FiO2 Expiratory Pressure Inspiratory Pressure Sodium Potassium Chloride Carbon Dioxide Anion Gap BUN Creatinine Estim Creat Clear Calc Estimated GFR Glucose POC Capillary Glucose Lactic Acid Calcium Phosphorus Magnesium Total Bilirubin AST ALT Alkaline Phosphatase Lactate Dehydrogenase Troponin I Total Protein Albumin Triglycerides Lipase Procalcitonin Urine Color Urine Appearance Urine pH Ur Specific [place] Urine Protein Urine Glucose (UA) Urine Ketones Ur Blood (Man) Urine Nitrate Urine Bilirubin Urine Urobilinogen Add Ur Microanalysis Leukocyte Esterase Rfl Urine RBC Urine WBC Ur Squamous Epith Cells Urine Bacteria Urine Casts Pleural Fluid Source Pleural Color Pleural Appearance Pleural pH Pleural RBC Pleural Nuc Cells Pleural Neutrophils Pleural Lymphocytes Pleural Macrophages Nasal MRSA (PCR) 12/21/24 12/21/24 12/22/24 21:26 21:26 01:40 WBC RBC Hgb Hct MCV MCH MCHC RDW Plt Count 276 MPV Cancelled 9.6 Immature Gran % (Auto) Neut % (Auto) Lymph % (Auto) [place] % (Auto) Eos % (Auto) Baso % (Auto) Lymph # (Auto) [place] # (Auto) Eos # (Auto) Baso # (Auto) Abs Immat Gran (auto) Absolute Neuts (auto) Absolute Nucleated RBC Total Counted Neutrophils % (Manual) Band Neutrophils % Lymphocytes % (Manual) Monocytes % (Manual) Nucleated RBC % Abs Neuts (Manual) Abs Lymphs (Manual) Abs Monocytes (Manual) Platelet Estimate % Immature Plt Fraction Cancelled Ovalocytes [place] Cells Schistocytes PT 16.1 H INR 1.3 APTT 24.5 Fibrinogen 536 H D-Dimer 2.06 H Puncture Site ABG pH ABG pCO2 ABG pO2 ABG PO2/FiO2 Ratio ABG HCO3 ABG O2 Saturation ABG O2 Content ABG Base Excess A-a Gradient Oxyhemoglobin Carboxyhemoglobin Methemoglobin Reduced Hemoglobin Total Hemoglobin O2 Delivery Device O2 Liters/Min Vent Rate FiO2 Expiratory Pressure Inspiratory Pressure Sodium 138 Potassium 5.7 H Chloride 110 H Carbon Dioxide 14 L Anion Gap 14 H BUN 43 H Creatinine 2.12 H Estim Creat Clear Calc 38 Estimated GFR 32 L Glucose 164 H POC Capillary Glucose 235 H Lactic Acid 1.6 Calcium 5.9 L* Phosphorus Magnesium 2.1 Total Bilirubin 1.2 AST 117 H ALT 240 H Alkaline Phosphatase 58 Lactate Dehydrogenase Troponin I 0.025 Total Protein 7.0 Albumin 4.2 Triglycerides Lipase 4640 H Procalcitonin 11.9 Urine Color Urine Appearance Urine pH Ur Specific [place] Urine Protein Urine Glucose (UA) Urine Ketones Ur Blood (Man) Urine Nitrate Urine Bilirubin Urine Urobilinogen Add Ur Microanalysis Leukocyte Esterase Rfl Urine RBC Urine WBC Ur Squamous Epith Cells Urine Bacteria Urine Casts Pleural Fluid Source Pleural Color Pleural Appearance Pleural pH Pleural RBC Pleural Nuc Cells Pleural Neutrophils Pleural Lymphocytes Pleural Macrophages Nasal MRSA (PCR) 12/22/24 12/22/24 12/22/24 05:08 07:14 07:31 WBC 16.4 H RBC 5.18 Hgb 15.4 Hct 47.1 MCV 90.9 MCH 29.7 MCHC 32.7 RDW 13.2 Plt Count 200 MPV 10.0 Immature Gran % (Auto) Not Reportable Neut % (Auto) Not Reportable Lymph % (Auto) Not Reportable [place] % (Auto) Not Reportable Eos % (Auto) Not Reportable Baso % (Auto) Not Reportable Lymph # (Auto) Not Reportable [place] # (Auto) Not Reportable Eos # (Auto) Not Reportable Baso # (Auto) Not Reportable Abs Immat Gran (auto) Not Reportable Absolute Neuts (auto) Not Reportable Absolute Nucleated RBC Not Reportable Total Counted 100 Neutrophils % (Manual) 75 H Band Neutrophils % 14 H Lymphocytes % (Manual) 8 L Monocytes % (Manual) 2 L Nucleated RBC % Not Reportable Abs Neuts (Manual) 14.59 H Abs Lymphs (Manual) 1.31 Abs Monocytes (Manual) 0.32 Platelet Estimate Adequate % Immature Plt Fraction Ovalocytes 1+ [place] Cells 3+ Schistocytes None seen PT INR APTT Fibrinogen D-Dimer Puncture Site ABG pH ABG pCO2 ABG pO2 ABG PO2/FiO2 Ratio ABG HCO3 ABG O2 Saturation ABG O2 Content ABG Base Excess A-a Gradient Oxyhemoglobin Carboxyhemoglobin Methemoglobin Reduced Hemoglobin Total Hemoglobin O2 Delivery Device O2 Liters/Min Vent Rate FiO2 Expiratory Pressure Inspiratory Pressure Sodium 137 Potassium 4.2 Chloride 105 Carbon Dioxide 27 Anion Gap 5 BUN 49 H Creatinine 1.64 H Estim Creat Clear Calc 48 Estimated GFR 43 L Glucose 221 H POC Capillary Glucose 241 H Lactic Acid 1.6 Calcium 5.4 L* Phosphorus 2.6 Magnesium 1.9 Total Bilirubin 1.1 AST 74 H ALT 146 H Alkaline Phosphatase 43 Lactate Dehydrogenase Troponin I Total Protein 5.0 L Albumin 3.0 L Triglycerides 86 Lipase 2366 H Procalcitonin Urine Color Dark yellow Urine Appearance Turbid H Urine pH 5.0 Ur Specific [place] 1.027 Urine Protein 2+ H Urine Glucose (UA) Trace H Urine Ketones Trace H Ur Blood (Man) 2+ H Urine Nitrate Negative Urine Bilirubin 1+ H Urine Urobilinogen 1.0 Add Ur Microanalysis Reviewed Leukocyte Esterase Rfl Trace H Urine RBC 11-20 H Urine WBC 0-5 Ur Squamous Epith Cells Moderate Urine Bacteria None seen Urine Casts 11-20 Pleural Fluid Source Pleural Color Pleural Appearance Pleural pH Pleural RBC Pleural Nuc Cells Pleural Neutrophils Pleural Lymphocytes Pleural Macrophages Nasal MRSA (PCR) Not detected 12/22/24 12/22/24 11:57 13:52 WBC RBC Hgb Hct MCV MCH MCHC RDW Plt Count MPV Immature Gran % (Auto) Neut % (Auto) Lymph % (Auto) [place] % (Auto) Eos % (Auto) Baso % (Auto) Lymph # (Auto) [place] # (Auto) Eos # (Auto) Baso # (Auto) Abs Immat Gran (auto) Absolute Neuts (auto) Absolute Nucleated RBC Total Counted Neutrophils % (Manual) Band Neutrophils % Lymphocytes % (Manual) Monocytes % (Manual) Nucleated RBC % Abs Neuts (Manual) Abs Lymphs (Manual) Abs Monocytes (Manual) Platelet Estimate % Immature Plt Fraction Ovalocytes [place] Cells Schistocytes PT INR APTT Fibrinogen D-Dimer Puncture Site Right radial ABG pH 7.437 ABG pCO2 37.3 ABG pO2 96.7 ABG PO2/FiO2 Ratio 1.38 ABG HCO3 24.6 ABG O2 Saturation 97.6 ABG O2 Content 19.6 ABG Base Excess 0.7 A-a Gradient 362.3 Oxyhemoglobin 97.0 Carboxyhemoglobin 0.6 Methemoglobin 0.3 Reduced Hemoglobin 2.1 Total Hemoglobin 14.3 O2 Delivery Device Non-invasive vent O2 Liters/Min Not Reportable Vent Rate 16 FiO2 70 Expiratory Pressure 6 Inspiratory Pressure 12 Sodium Potassium Chloride Carbon Dioxide Anion Gap BUN Creatinine Estim Creat Clear Calc Estimated GFR Glucose POC Capillary Glucose 122 H Lactic Acid Calcium Phosphorus Magnesium Total Bilirubin AST ALT Alkaline Phosphatase Lactate Dehydrogenase Troponin I Total Protein Albumin Triglycerides Lipase Procalcitonin Urine Color Urine Appearance Urine pH Ur Specific [place] Urine Protein Urine Glucose (UA) Urine Ketones Ur Blood (Man) Urine Nitrate Urine Bilirubin Urine Urobilinogen Add Ur Microanalysis Leukocyte Esterase Rfl Urine RBC Urine WBC Ur Squamous Epith Cells Urine Bacteria Urine Casts Pleural Fluid Source Pleural Color Pleural Appearance Pleural pH Pleural RBC Pleural Nuc Cells Pleural Neutrophils Pleural Lymphocytes Pleural Macrophages Nasal MRSA (PCR)
[2024-12-22 17:02] LABS: Glucose Point of Care 138 mg/dl (65-105)
[2024-12-22] MEDS: ONDANSETRON INJ 4 MG/2 ML VIAL IV PUSH (18:54)
[2024-12-22 19:58] LABS: Vancomycin Trough 6.4 ug/mL (10.0-20.0)
[2024-12-22] MEDS: IPRATROPIUM BR 0.02% INH SOLN 0.5 MG/2.5 ML VIAL INHALATION (20:20)
[2024-12-22] MEDS: LEVALBUTEROL NEB 1.25 MG/3 ML 0.63 MG INHALATION (20:20)
[2024-12-22 20:59] LABS: Glucose Point of Care 164 mg/dl (65-105)
[2024-12-23] VITALS (39 sets, daily range): BP systolic 105–139; BP diastolic 67–104; PULSE 116–135; RESP 12–27; TEMP 37.2–38.2; O2SAT 93–99
[2024-12-23] MEDS: HYDROmorphone HCL INJ (*CRX) 2 MG/ML VIAL 0.5 MG IV PUSH ×11 (00:09→21:49)
[2024-12-23] MEDS: ALBUMIN HUMAN 25% 25 GM/100 ML 100 ML IVPB ×3 (00:09→11:19)
[2024-12-23] MEDS: IPRATROPIUM BR 0.02% INH SOLN 0.5 MG/2.5 ML VIAL INHALATION ×4 (02:28→19:45)
[2024-12-23] MEDS: LEVALBUTEROL NEB 1.25 MG/3 ML 0.63 MG INHALATION ×4 (02:28→19:45)
[2024-12-23] MEDS: LACTATED RINGERS 1,000 ML 75 ML IV CONT ×2 (04:57→18:24)
[2024-12-23] MEDS: metroNIDAZOLE 500 MG/ISO 100ML 500 MG/100 ML BAG 100 MG IVPB ×3 (04:57→21:48)
[2024-12-23 06:22] LABS: Hematocrit 34.5 % (42.0-52.0); Hemoglobin 11.1 g/dL (14.0-18.0); Mean Corpuscular HGB Conc 32.2 g/dl (32-36); Mean Corpuscular Hemoglobin 29.6 pg (26-34); Mean Platelet Volume 9.7 fl (7.4-10.4); Platelet Count Result 147 k/mm3 (150-375); Red Blood Count 3.75 M/mm3 (4.6-6.20); Red Cell Distribution Width 13.5 % (11.5-14.5); White Blood Count 10.7 K/mm3 (4.5-10.0)
[2024-12-23 06:31] LABS: Lactic Acid Reflex 1.1 mmol/L (0.7-2.0)
[2024-12-23 06:45] LABS: Alanine Aminotransferase 58 U/L (6-50); Albumin Level 4.1 g/dL (3.5-5.1); Alkaline Phosphatase 21 U/L (38-126); Anion Gap 7 mmol/L (4-12); Aspartate Amino Transferase 60 U/L (17-59); Blood Urea Nitrogen 64 mg/dL (9-20); Calcium 5.3 mg/dL (8.4-10.2); Carbon Dioxide 27 mmol/L (22-30); Chloride 105 mmol/L (98-107); Estimated CRCL calculation 48 ml/min; Estimated Glomerular Filt Rate 42; Glucose 143 mg/dL (65-110); Lipase 842 U/L (23-300); Magnesium 1.7 mg/dL (1.6-2.3); Potassium 4.2 mmol/L (3.4-5.0); Sodium 139 mmol/L (137-145)
[2024-12-23 07:02] LABS: Band Neutrophils Percent 21 % (0-6); Lymphocytes Absolute Manual 0.42 K/mm3 (1.1-4.5); Monocytes Absolute Manual 0.85 K/mm3 (0.1-0.90); Monocytes Percent Manual 8 % (3-9); Neutrophils Absolute Manual 9.41 K/mm3 (1.3-6.7); Neutrophils Percent Manual 67 % (46-73); Platelet Estimate Adequate (Adequate); Schistocytes None Seen; Total Cells Counted 100
[2024-12-23 07:03] LABS: Burr Cells 1+; Hypochromasia 1+
[2024-12-23 07:10] LABS: CRP 28.9 mg/dL (<1.0)
[2024-12-23] MEDS: CALCIUM GLUC 2,000 MG/NS 100ML 2,000 MG/100 ML BAG 100 MG IVPB (07:57)
[2024-12-23] MEDS: CALCIUM GLUC 1,000 MG/NS 50 ML 1,000 MG/50 ML BAG 100 MG IVPB (07:58)
[2024-12-23] MEDS: PANTOPRAZOLE SODIUM IV 40 MG VIAL IV PUSH (07:59)
[2024-12-23] MEDS: ENOXAPARIN 40 MG/0.4 ML SYRINGE SUB-Q (07:59)
--- NOTE | 2024-12-23 08:10 | WPDINTPN ---
Progress Note: A&P Assessment and Plan (1) Acute pancreatitis: Code(s): K85.90 - Acute pancreatitis without necrosis or infection, unspecified <Sujey Lyons Travis Humphreys - Last Filed: 12/23/24 08:50> Status: Acute <Sujey Garzabhavin Student - Last Filed: 12/23/24 08:50> Assessment and Plan: 12/21: Pt presented to the Emergency Department for sudden onset of abdominal pain, nausea, vomiting, and SOB. In the ED, he was found to have WBC of 21, AST of 512, ALT of 493[place] [address]. 12/21: CT abdomen and pelvis was performed at that time and demonstrated small right pleural effusion, minimal left pleural effusion with mild bibasilar pulmonary edema/atelectasis, gallbladder wall thickening, and extensive peripancreatic fluid and inflammatory change c/w acute pancreatitis. - He was admitted to the medical floor under hospitalist Service, -was initially given 2 L IV fluid bolus in the ER and started on levofloxacin. 12/21:CT chest performed which demonstrated acute increase in pleural effusion size from small to large on the right and underwent an ultrasound-guided thoracentesis without complication. Pleural fluid did not suggest infection but was slightly bloody. Pleural fluid triglycerides, glucose, and albumin are still pending. Pt was started on empiric Levaquin and Flagyl. Repeat labs demonstrated acute kidney injury with low serum bicarb, hypocalcemia, and hyperkalemia. 12/21: At night patient was hypotensive with with his BP in the 80s, tachycardic her heart rates in the 130s to 140s on the medical floor, additional 2 L IV fluids were given with improvement in blood pressures. Patient was febrile,. Central line was placed in Rt IJ by Dr. Eugene and pt was transferred to the ICU for further evaluation and management. -triglyceride levels were normal, patient denies any alcohol use. No gallstone or cholecystitis present on CT scan of the abdomen and pelvis -lipase trending down 12/22: Pt continues to experience upper abdominal pain, but states this is improved with Dilaudid. - Pt febrile at 08:30am, Tylenol was ordered - Lipase continues to trend down, currently 842 <Travis Keys - Last Filed: 12/23/24 08:50> 12/21: Pt presented to the Emergency Department for sudden onset of abdominal pain, nausea, vomiting, and SOB. In the ED, he was found to have WBC of 21, AST of 512, ALT [place] 493[place] [address]. 12/21: CT abdomen and pelvis was performed at that time and demonstrated small right pleural effusion, minimal left pleural effusion with mild bibasilar pulmonary edema/atelectasis, gallbladder wall thickening, and extensive peripancreatic fluid and inflammatory change c/w acute pancreatitis. - He was admitted to the medical floor under hospitalist Service, -was initially given 2 L IV fluid bolus in the ER and started on levofloxacin. 12/21:CT chest performed which demonstrated acute increase in pleural effusion size from small to large on the right and underwent an ultrasound-guided thoracentesis without complication. Pleural fluid did not suggest infection but was slightly bloody. Pleural fluid triglycerides, glucose, and albumin are still pending. Pt was started on empiric Levaquin and Flagyl. Repeat labs demonstrated acute kidney injury with low serum bicarb, hypocalcemia, and hyperkalemia. 12/21: At night patient was hypotensive with with his BP in the 80s, tachycardic her heart rates in the 130s to 140s on the medical floor, additional 2 L IV fluids were given with improvement in blood pressures. Patient was febrile,. Central line was placed in Rt IJ by Dr. Eugene and pt was transferred to the ICU for further evaluation and management. -triglyceride levels were normal, patient denies any alcohol use. No gallstone or cholecystitis present on CT scan of the abdomen and pelvis -lipase trending down 12/22: Pt continues to experience upper abdominal pain, but states this is improved with Dilaudid. - Pt febrile at 08:30am, Tylenol was ordered - Lipase continues to trend down, currently 842 <Jerrica Loredo MD - Last Filed: 12/23/24 09:16> (2) Sepsis: Code(s): A41.9 - Sepsis, unspecified organism <Travis Keys - Last Filed: 12/23/24 08:50> Status: Acute <Travis Keys - Last Filed: 12/23/24 08:50> Assessment and Plan: Patient presented with hypotension, tachycardia, fevers, pancreatitis -lactic acid was checked after fluid administration which was within normal limb -procalcitonin levels are significantly elevated -12/21: Started on Levaquin, Flagyl and vancomycin, will continue -12/21: Blood cultures obtained and pending -adequately fluid-resuscitated -will give albumin for volume expansion -Leukocytosis likely due to acute pancreatitis/pneumonia/sepsis 12/22/2024: Echocardiogram Summary 1. Definity contrast administered improved wall motion interpretation. 2. Left ventricular chamber dimension is normal. 3. Left ventricular systolic function is normal, estimated at 65-70%. 4. The left ventricular diastolic function is grade I diastolic dysfunction. 5. E/e' 5 is not elevated. 6. There is mild aortic valve sclerosis. 7. There is trace pulmonic regurgitation. 8. There is small circumferential pericardial effusion. 12/23-WBC count improving, patient also has been anemia. Continue antibiotics as above <Sujey Humphreys Student - Last Filed: 12/23/24 08:50> Patient presented with hypotension, tachycardia, fevers, pancreatitis -lactic acid was checked after fluid administration which was within normal limb -procalcitonin levels are significantly elevated -12/21: Started on Levaquin, Flagyl and vancomycin, will continue -12/21: Preliminary blood cultures are negative x2 -adequately fluid-resuscitated -status post albumin for volume expansion -Leukocytosis likely due to acute pancreatitis/pneumonia/sepsis -improving 12/22/2024: Echocardiogram Summary 1. Definity contrast administered improved wall motion interpretation. 2. Left ventricular chamber dimension is normal. 3. Left ventricular systolic function is normal, estimated at 65-70%. 4. The left ventricular diastolic function is grade I diastolic dysfunction. 5. E/e' 5 is not elevated. 6. There is mild aortic valve sclerosis. 7. There is trace pulmonic regurgitation. 8. There is small circumferential pericardial effusion. 12/23-WBC count improving, Continue antibiotics as above <Jerrica Loredo MD - Last Filed: 12/23/24 09:16> (3) Transaminitis: Code(s): R74.01 - Elevation of levels of liver transaminase levels <Sujey Humphreys Student - Last Filed: 12/23/24 08:50> Status: Acute <Sujey Humphreys Student - Last Filed: 12/23/24 08:50> Assessment and Plan: Initial LFTs were AST of 512 and ALT of 493. 12/22- liver transaminase levels are improved with AST of 74 and ALT of 146 12/23-Levels continue to improve, AST of 60 and ALT of 58 -will continue to monitor <Sujey Humphreys Student - Last Filed: 12/23/24 08:50> (4) Aspiration pneumonia: Code(s): J69.0 - Pneumonitis due to inhalation of food and vomit <Sujey Humphreys, Student - Last Filed: 12/23/24 08:50> Status: Acute <Sujey Humphreys, - Last Filed: 12/23/24 08:50> Assessment and Plan: 12/21- CT abdomen and pelvis was performed in the ED and demonstrated small right pleural effusion, minimal left pleural effusion with mild bibasilar pulmonary edema/atelectasis, gallbladder wall thickening, and extensive peripancreatic fluid and inflammatory change c/w acute pancreatitis. While admitted, he had a repeat CT chest performed which demonstrated acute increase in pleural effusion size from small to large on the right and underwent an ultrasound-guided thoracentesis without complication. Pleural fluid did not suggest infection but was slightly bloody. Pleural fluid triglycerides, glucose, and albumin are still pending. Pt was started on empiric Levaquin and Flagyl. 12/22- Continue Levaquin, Flagyl, and Vancomycin -Repeat CXR shows small right pleural effusion and questionable minimal bibasilar pulmonary edema 12/23- will continue Levaquin, Flagyl, and Vancomycin - Pt was on BIPAP all night without episode of hypoxia - Repeat CXR shows unchanged moderate right and small left pleural effusions with associated basilar atelectasis versus pneumonia <Sujey Humphreys, Student - Last Filed: 12/23/24 08:50> (5) Leukocytosis: Code(s): D72.829 - Elevated white blood cell count, unspecified <Sujey Humphreys, Student - Last Filed: 12/23/24 08:50> Status: Acute <Sujey Humphreys, - Last Filed: 12/23/24 08:50> Assessment and Plan: Likely related to acute pancreatitis/pneumonia Initial WBC was 21. Started on empiric Levaquin, Flagyl, and Vancomycin 12/22- WBC improved at 16.4. Will continue Levaquin, Flagyl, and Vancomycin Repeat CBC 12/23- WBC continues to improve, today is 10.7 on Levaquin, Flagyl, and Vancomycin - will continue to monitor <Sujey Humphreys Student - Last Filed: 12/23/24 08:50> (6) Nausea & vomiting: Code(s): R11.2 - Nausea with vomiting, unspecified <Sujey Humphreys, Student - Last Filed: 12/23/24 08:50> Status: Acute <Sujey Humphreys, Student - Last Filed: 12/23/24 08:50> Assessment and Plan: -improved following IVF, will continue to monitor -Zofran 4mg prn 12/23- resolved, pt is requesting to eat. Will start clear liquid diet <Sujey Garzabhavin, Student - Last Filed: 12/23/24 08:50> (7) Abdominal pain: Code(s): R10.9 - Unspecified abdominal pain <Sujey Garzabhavin, Student - Last Filed: 12/23/24 08:50> Status: Acute <Sujey Humphreys Student - Last Filed: 12/23/24 08:50> Assessment and Plan: -Likely related to acute pancreatitis -Pain is well controlled with Dilaudid 12/23- unchanged <Sujey Garzabhavin Student - Last Filed: 12/23/24 08:50> -Likely related to acute pancreatitis -Pain is well controlled with Dilaudid 12/23- unchanged -continue pain meds <Jerrica Loredo MD - Last Filed: 12/23/24 09:16> Assessment and Plan: DVT prophylaxis: Lovenox SQ Stress ulcer prophylaxis: Protonix Nutrition: NPO Code Status: Full code Critical Care Time Spent: 53 minute Due to a high probability of clinically significant, life threatening deterioration, the patient required my highest level of preparedness to intervene emergently and I personally spent this critical care time directly and personally managing the patient. This critical care time included obtaining a history; examining the patient; pulse oximetry; ordering and review of studies; arranging urgent treatment with development of a management plan; evaluation of patient's response to treatment; frequent reassessment; and discussions with other providers. It was exclusive of separately billable procedures and treating other patients and teaching time. Please see Assessment and Plan section and the rest of the note for further information on patient assessment and treatment This dictation may have been done utilizing a voice recognition system. Attempts have been made to correct errors. However, there may be uncorrected grammatical, spelling, and recognitions errors present. <Sujey Humphreys, Student - Last Filed: 12/23/24 08:50> DVT prophylaxis: Lovenox SQ Stress ulcer prophylaxis: Protonix Nutrition: Start clear liquid diet Code Status: Full code Critical Care Time Spent: 34 minutes Discussed with patient and his spouse at bedside and updated them with patient's condition and plan of care. I answered all questions Due to a high probability of clinically significant, life threatening deterioration, the patient required my highest level of preparedness to intervene emergently and I personally spent this critical care time directly and personally managing the patient. This critical care time included obtaining a history; examining the patient; pulse oximetry; ordering and review of studies; arranging urgent treatment with development of a management plan; evaluation of patient's response to treatment; frequent reassessment; and discussions with other providers. It was exclusive of separately billable procedures and treating other patients and teaching time. Please see Assessment and Plan section and the rest of the note for further information on patient assessment and treatment This dictation may have been done utilizing a voice recognition system. Attempts have been made to correct errors. However, there may be uncorrected grammatical, spelling, and recognitions errors present. <Jerrica Loredo MD - Last Filed: 12/23/24 09:16> Subjective Date/time seen: 12/23/24 08:10 <Sujey Humphreys, Student - Last Filed: 12/23/24 08:50> Interval history: Pt admitted to ICU for acute pancreatitis, elevated liver transaminases, and pneumonitis on 12/22/24. Pt reports that he is still experiencing upper abdominal pain that is intermittent and improved with Dilaudid. He denies nausea and vomiting currently. Pt asked if he can start eating soon, so discussed beginning a clear liquid diet today. Pt again reports that he only drinks 5 beers per week and states they are spread out over 7 days. Pt's notes that the patient began taking a [employer] supplement a couple months ago and is unsure if that may be related to his current pancreatitis episode. He denies taking any other supplements. Interval History: 12/21- Empiric Levaquin, Flagyl, and Vancomycin ordered 12/21- Blood cultures obtained 12/21- US-guided thoracentesis of Rt pleural effusion with 650mL output 12/21- Rapid response called while pt was admitted to medicine floor, Rt IJ central line placed. Transferred to ICU 12/22- Echo performed with EF of 65-70% <Sujey Humphreys, Student - Last Filed: 12/23/24 08:50> Review of Systems Review of Systems: All systems reviewed & are unremarkable except as noted in HPI and below <Sujey Humphreys, Student - Last Filed: 12/23/24 08:50> Exam Narrative: General: No acute distress HEENT:? Pupils equal and reactive, sclera is clear Neck:? Supple Respiratory:? Decreased breath sounds Rt side, normal breath sounds on the Lt, no wheezing Cardiac:? S1-S2 is normal, Tachycardic, regular rhythm Abdomen:? Soft, normal bowel sounds, Distended abdomen, generalized tenderness with palpation Extremities:? Lower extremities are warm, no edema, palpable pedal pulses Neuro:? Alert and Oriented Skin:? Warm, dry, and intact. Few scattered, raised papules on Lt lower pannus with no surrounding erythema, fluctuance, or purulent drainage Psych: Normal affect <Sujey Humphreys, Student - Last Filed: 12/23/24 08:50> Objective Data Vital Signs Vital Signs: Vital Signs - 24 hr 12/22/24 10:00 12/22/24 10:00 12/22/24 10:43 Temperature 99.0 F Pulse Rate 131 H 131 H 128 H Respiratory Rate 18 24 H Blood Pressure 112/92 H Pulse Oximetry 91 93 Oxygen Delivery BiPAP Oxygen Flow Rate Fraction of Inspired Oxygen 12/22/24 12:00 12/22/24 12:00 12/22/24 12:00 Temperature 99.2 F Pulse Rate 123 H 125 H Respiratory Rate 23 H Blood Pressure 100/75 Pulse Oximetry 89 L Oxygen Delivery BiPAP Oxygen Flow Rate Fraction of Inspired Oxygen 80 12/22/24 13:52 12/22/24 14:00 12/22/24 14:00 Temperature 99.8 F H Pulse Rate 123 H 121 H 121 H Respiratory Rate 17 17 Blood Pressure 113/69 Pulse Oximetry 92 89 L Oxygen Delivery BiPAP Oxygen Flow Rate Fraction of Inspired Oxygen 12/22/24 14:08 12/22/24 16:00 12/22/24 16:00 Temperature 98.3 F Pulse Rate 121 H 123 H Respiratory Rate 20 15 Blood Pressure 100/69 Pulse Oximetry 94 94 94 Oxygen Delivery High Flow Therapy with Na High Flow Therapy with Na Oxygen Flow Rate 45 45 Fraction of Inspired Oxygen 60 60 12/22/24 16:00 12/22/24 16:40 12/22/24 16:50 Temperature Pulse Rate 122 H 126 H Respiratory Rate 20 Blood Pressure Pulse Oximetry 94 93 Oxygen Delivery High Flow Therapy with Na High Flow Therapy with Na Oxygen Flow Rate 45 45 Fraction of Inspired Oxygen 60 50 12/22/24 18:00 12/22/24 18:00 12/22/24 20:00 Temperature 100.5 F H Pulse Rate 123 H 123 H Respiratory Rate 22 H Blood Pressure 109/89 Pulse Oximetry 91 94 Oxygen Delivery High Flow Therapy with Na Oxygen Flow Rate 45 Fraction of Inspired Oxygen 50 12/22/24 20:00 12/22/24 20:00 12/22/24 20:20 Temperature 99.9 F H Pulse Rate 127 H 127 H 127 H Respiratory Rate 13 22 H Blood Pressure 112/57 L Pulse Oximetry 94 Oxygen Delivery Oxygen Flow Rate Fraction of Inspired Oxygen 12/22/24 20:36 12/22/24 20:37 12/22/24 22:00 Temperature Pulse Rate 124 H 124 H 126 H Respiratory Rate 20 Blood Pressure Pulse Oximetry 92 Oxygen Delivery High Flow Therapy with Na Oxygen Flow Rate 45 Fraction of Inspired Oxygen 50 12/22/24 22:00 12/22/24 22:44 12/22/24 23:37 Temperature Pulse Rate 126 H 124 H Respiratory Rate 14 19 Blood Pressure 141/82 H Pulse Oximetry 94 96 97 Oxygen Delivery BiPAP BiPAP Oxygen Flow Rate Fraction of Inspired Oxygen 70 12/23/24 00:00 12/23/24 00:00 12/23/24 01:40 Temperature 99.7 F H 98.9 F Pulse Rate 120 H 120 H 116 H Respiratory Rate 13 13 Blood Pressure 134/85 117/87 Pulse Oximetry 96 97 Oxygen Delivery Oxygen Flow Rate Fraction of Inspired Oxygen 12/23/24 02:20 12/23/24 02:30 12/23/24 02:31 Temperature Pulse Rate 117 H 119 H 117 H Respiratory Rate 20 16 20 Blood Pressure Pulse Oximetry 98 Oxygen Delivery BiPAP Oxygen Flow Rate Fraction of Inspired Oxygen 12/23/24 03:40 12/23/24 03:45 12/23/24 04:00 Temperature 99.2 F Pulse Rate 117 H 119 H Respiratory Rate 20 Blood Pressure 123/71 Pulse Oximetry 98 97 Oxygen Delivery BiPAP Oxygen Flow Rate Fraction of Inspired Oxygen 60 12/23/24 05:03 12/23/24 05:15 12/23/24 06:00 Temperature Pulse Rate 120 H 120 H 120 H Respiratory Rate 19 19 Blood Pressure 135/85 Pulse Oximetry 95 95 Oxygen Delivery High Flow Therapy with Na Oxygen Flow Rate 45 Fraction of Inspired Oxygen 50 12/23/24 07:32 Temperature 100.2 F H Pulse Rate 119 H Respiratory Rate 24 H Blood Pressure 135/88 Pulse Oximetry 96 Oxygen Delivery Oxygen Flow Rate Fraction of Inspired Oxygen <Sujey Humphreys, Student - Last Filed: 12/23/24 08:50> Intake/Output Intake/Output: Intake & Output 12/20/24 12/21/24 12/22/24 12/23/24 23:59 23:59 23:59 23:59 Intake Total 3100 2973.0 1920 Output Total 650 1000 550 Balance 2450 1973.0 1370 <Sujey Humphreys, Student - Last Filed: 12/23/24 08:50> Meds/Results Medications: Active Medications Generic Name Dose Route Start Last Admin Trade Name Freq PRN Reason Stop Dose Admin Dextrose 12.5 gm 12/21/24 16:02 Dextrose 50% 25 Gm/50 Ml Syringe IV PUSH PRN PRN Hypoglycemia Protocol Enoxaparin Sodium 40 mg 12/22/24 09:00 12/23/24 07:59 Enoxaparin 40 Mg/0.4 Ml Syringe SUB-Q 40 mg DAILY LUIS Administration Glucagon 1 mg 12/21/24 16:02 Glucagon For Inj 1 Mg Vial IM PRN PRN Hypoglycemia Protocol Glucose 15 gm 12/21/24 16:02 Glucose Oral Gel 15 Gm Of Glucse In 37.5 Gm Tube PO PRN PRN Hypoglycemia Protocol Hydromorphone HCl 0.5 mg 12/21/24 04:20 12/23/24 07:33 Hydromorphone Hcl Inj (*Crx) 2 Mg/Ml Vial IV PUSH 0.5 mg Q2H PRN Administration Breakthrough Pain Metronidazole 500 mg in 100 mls @ 100 mls/hr 12/21/24 14:00 12/23/24 06:05 Flagyl 500 Mg/Iso Soln 100 Ml IVPB Infused Q8H LUIS Infusion Dextrose 1,000 mls @ 100 mls/hr 12/21/24 16:02 Dextrose 5% 1,000 Ml IVPB PRN PRN Hypoglycemia Protocol Albumin Human 100 mls @ 60 mls/hr 12/22/24 09:28 12/23/24 06:45 Albutein IVPB 12/23/24 13:39 Infused Q6HR LUIS Infusion Lactated Ringer's 1,000 mls @ 75 mls/hr 12/22/24 14:00 12/23/24 04:57 Lr - Lactated Ringers Iv IV CONT 75 mls/hr .[id number] LUIS Administration Calcium Gluconate 2,000 mg in 100 mls @ 100 mls/hr 12/23/24 08:04 12/23/24 07:57 Calcium Gluc 2,000 Mg/Ns 100ml IVPB 12/23/24 09:03 100 mls/hr ONCE ONE Administration Calcium Gluconate 1,000 mg in 50 mls @ 100 mls/hr 12/23/24 07:35 12/23/24 07:58 Calcium Gluc 1,000 Mg/Ns 50 Ml IVPB 12/23/24 08:04 100 mls/hr ONCE ONE Administration Levofloxacin/Dextrose 750 mg in 150 mls @ 100 mls/hr 12/24/24 07:00 Levaquin 750 Mg/D5w 150 Ml IVPB Q48H [facility] Insulin Aspart 2 - 5 units 12/21/24 17:00 12/22/24 17:12 Insulin Aspart (*Bkc) 100 Units/Ml SUB-Q Not Given [facility] Protocol Ipratropium [place] 0.5 mg 12/22/24 14:50 12/23/24 02:28 Ipratropium Br 0.02% Inh Soln 0.5 Mg/2.5 Ml Vial INHALATION 0.5 mg Q6HRT LUIS Administration Levalbuterol HCl 0.63 mg 12/22/24 14:50 12/23/24 02:28 Levalbuterol Neb 1.25 Mg/3 Ml INHALATION 0.63 mg Q6HRT LUIS Administration Ondansetron HCl 4 mg 12/21/24 04:21 12/22/24 18:54 Ondansetron Inj 4 Mg/2 Ml Vial IV PUSH 4 mg Q8H PRN Administration Vomiting Pantoprazole Sodium 40 mg 12/23/24 09:00 12/23/24 07:59 Pantoprazole Sodium Iv 40 Mg Vial IV PUSH 40 mg QAM LUIS Administration Fluticasone/Salmeterol 2 puff 12/22/24 08:00 12/22/24 20:20 Fluticasone/Salmeterol 115-21 Mcg Inhaler 1 Puff INHALATION 2 puff Q12HRT LUIS Administration Vancomycin HCl 1 each 12/21/24 22:44 Vancomycin For Acute Kidney Injury IVPB PRN PRN Vancomycin Protocol <Sujey Humphreys, Student - Last Filed: 12/23/24 08:50> Radiology Results: ITS Impressions Abdomen/Pelvis CT 12/21/24 06:41 Impression: Findings compatible with acute pancreatitis, as detailed above. Extensive apparent soft tissue thickening or inflammatory change surrounding the SMV and main portal vein in particular. Superimposed/associated vasculitis is a consideration. No pseudoaneurysm/aneurysm identified on this exam. Small right pleural effusion and minimal left pleural effusion with mild bibasilar pulmonary edema/atelectasis. Gallbladder wall thickening is likely reactive. 6 cm left renal cyst with 1.3 cm area of mural nodularity. Neoplastic lesion is not excluded. Pre and postcontrast renal MR advised to best assess for enhancing soft tissue lesion. Chest CT 12/21/24 11:14 IMPRESSION: Large right-sided pleural effusion with adjacent consolidation. Small left-sided pleural effusion with adjacent atelectasis. Additional findings consistent with severe hypovolemia. Upper Quadrant Ultrasound 12/21/24 12:24 IMPRESSION: Gallbladder distention with intra-abdominal fluid, related to patient's acute pancreatitis, rather than designated gallbladder disease. Requested evaluation of the superior mesenteric artery is also patent, as detailed above. Thoracentesis Ultrasound 12/21/24 18:20 IMPRESSION: 1. Successful ultrasound-guided thoracentesis yielding 650 mL of dark [id number] fluid. Chest X-Ray 12/23/24 07:19 IMPRESSION: 1. Unchanged moderate sized right and small left pleural effusions with associated basilar atelectasis versus pneumonia. <Sujey McguireTeodoro Humphreys, Student - Last Filed: 12/23/24 08:50> Labs Labs: Laboratory Results - last 24 hr 12/22/24 12/22/24 12/22/24 05:08 07:31 11:57 WBC RBC Hgb Hct MCV MCH MCHC RDW Plt Count MPV Immature Gran % (Auto) Neut % (Auto) Lymph % (Auto) [place] % (Auto) Eos % (Auto) Baso % (Auto) Lymph # (Auto) [place] # (Auto) Eos # (Auto) Baso # (Auto) Abs Immat Gran (auto) Absolute Neuts (auto) Absolute Nucleated RBC Total Counted Neutrophils % (Manual) Band Neutrophils % Lymphocytes % (Manual) Monocytes % (Manual) Nucleated RBC % Abs Neuts (Manual) Abs Lymphs (Manual) Abs Monocytes (Manual) Platelet Estimate Hypochromasia Dillon Cells Schistocytes Puncture Site ABG pH ABG pCO2 ABG pO2 ABG PO2/FiO2 Ratio ABG HCO3 ABG O2 Saturation ABG O2 Content ABG Base Excess A-a Gradient Oxyhemoglobin Carboxyhemoglobin Methemoglobin Reduced Hemoglobin Total Hemoglobin O2 Delivery Device O2 Liters/Min Vent Rate FiO2 Expiratory Pressure Inspiratory Pressure Sodium Potassium Chloride Carbon Dioxide Anion Gap BUN Creatinine Estim Creat Clear Calc Estimated GFR Glucose POC Capillary Glucose 122 H Lactic Acid Calcium Magnesium Total Bilirubin AST ALT Alkaline Phosphatase C-Reactive Protein Total Protein Albumin Triglycerides 86 Lipase Nasal MRSA (PCR) Not detected Vancomycin Trough 12/22/24 12/22/24 12/22/24 13:52 16:57 19:24 WBC RBC Hgb Hct MCV MCH MCHC RDW Plt Count MPV Immature Gran % (Auto) Neut % (Auto) Lymph % (Auto) [place] % (Auto) Eos % (Auto) Baso % (Auto) Lymph # (Auto) [place] # (Auto) Eos # (Auto) Baso # (Auto) Abs Immat Gran (auto) Absolute Neuts (auto) Absolute Nucleated RBC Total Counted Neutrophils % (Manual) Band Neutrophils % Lymphocytes % (Manual) Monocytes % (Manual) Nucleated RBC % Abs Neuts (Manual) Abs Lymphs (Manual) Abs Monocytes (Manual) Platelet Estimate Hypochromasia [place] Cells Schistocytes Puncture Site Right radial ABG pH 7.437 ABG pCO2 37.3 ABG pO2 96.7 ABG PO2/FiO2 Ratio 1.38 ABG HCO3 24.6 ABG O2 Saturation 97.6 ABG O2 Content 19.6 ABG Base Excess 0.7 A-a Gradient 362.3 Oxyhemoglobin 97.0 Carboxyhemoglobin 0.6 Methemoglobin 0.3 Reduced Hemoglobin 2.1 Total Hemoglobin 14.3 O2 Delivery Device Non-invasive vent O2 Liters/Min Not Reportable Vent Rate 16 FiO2 70 Expiratory Pressure 6 Inspiratory Pressure 12 Sodium Potassium Chloride Carbon Dioxide Anion Gap BUN Creatinine Estim Creat Clear Calc Estimated GFR Glucose POC Capillary Glucose 138 H Lactic Acid Calcium Magnesium Total Bilirubin AST ALT Alkaline Phosphatase C-Reactive Protein Total Protein Albumin Triglycerides Lipase Nasal MRSA (PCR) Vancomycin Trough 6.4 L 12/22/24 12/23/24 20:53 06:10 WBC 10.7 H RBC 3.75 L Hgb 11.1 L D Hct 34.5 L MCV 92.0 MCH 29.6 MCHC 32.2 RDW 13.5 Plt Count 147 L MPV 9.7 Immature Gran % (Auto) Not Reportable Neut % (Auto) Not Reportable Lymph % (Auto) Not Reportable [place] % (Auto) Not Reportable Eos % (Auto) Not Reportable Baso % (Auto) Not Reportable Lymph # (Auto) Not Reportable [place] # (Auto) Not Reportable Eos # (Auto) Not Reportable Baso # (Auto) Not Reportable Abs Immat Gran (auto) Not Reportable Absolute Neuts (auto) Not Reportable Absolute Nucleated RBC Not Reportable Total Counted 100 Neutrophils % (Manual) 67 Band Neutrophils % 21 H Lymphocytes % (Manual) 4.0 L Monocytes % (Manual) 8 Nucleated RBC % Not Reportable Abs Neuts (Manual) 9.41 H Abs Lymphs (Manual) 0.42 L Abs Monocytes (Manual) 0.85 Platelet Estimate Adequate Hypochromasia 1+ [place] Cells 1+ Schistocytes None seen Puncture Site ABG pH ABG pCO2 ABG pO2 ABG PO2/FiO2 Ratio ABG HCO3 ABG O2 Saturation ABG O2 Content ABG Base Excess A-a Gradient Oxyhemoglobin Carboxyhemoglobin Methemoglobin Reduced Hemoglobin Total Hemoglobin O2 Delivery Device O2 Liters/Min Vent Rate FiO2 Expiratory Pressure Inspiratory Pressure Sodium 139 Potassium 4.2 Chloride 105 Carbon Dioxide 27 Anion Gap 7 BUN 64 H D Creatinine 1.65 H Estim Creat Clear Calc 48 Estimated GFR 42 L Glucose 143 H POC Capillary Glucose 164 H Lactic Acid 1.1 Calcium 5.3 L* Magnesium 1.7 Total Bilirubin 2.0 H AST 60 H ALT 58 H Alkaline Phosphatase 21 L C-Reactive Protein 28.9 H Total Protein 6.0 L Albumin 4.1 Triglycerides Lipase 842 H Nasal MRSA (PCR) Vancomycin Trough <Sujey Humphreys Student - Last Filed: 12/23/24 08:50> Quality VTE Prophylaxis VTE prophylaxis: pharmacologic ordered <Sujey Humphreys Student - Last Filed: 12/23/24 08:50> Attestation Student Attestation H&P performed by MADISON Mclain-COURTNEY <Travis Keys - Last Filed: 12/23/24 08:50> Supervising Provider Attestation Patient seen and examined independently by me. Agree to above assessment and plan <Jerrica Loredo MD - Last Filed: 12/23/24 09:16>
[2024-12-23] MEDS: FLUTICASONE/SALMETEROL 115-21 MCG INHALER 1 PUFF 2 PUFF INHALATION ×2 (08:18→19:44)
[2024-12-23 08:22] LABS: Glucose Point of Care 141 mg/dl (65-105)
[2024-12-23] MEDS: ACETAMINOPHEN ELIXIR 325 MG/10.15 ML UDC 650 MG PO ×2 (08:47→14:18)
[2024-12-23] MEDS: SENNA/DOCUSATE SODIUM TABLET 1 TAB PO ×2 (11:19→19:55)
[2024-12-23] MEDS: polyethylene glycoL 3350 17 GM POWD.PACK PO (11:19)
[2024-12-23 11:30] LABS: Glucose Point of Care 148 mg/dl (65-105)
[2024-12-23] MEDS: ONDANSETRON INJ 4 MG/2 ML VIAL IV PUSH ×2 (11:35→18:24)
--- NOTE | 2024-12-23 13:52 | P.PNGI_ITS ---
Progress Note: A&P Assessment and Plan (1) Acute pancreatitis: Code(s): K85.90 - Acute pancreatitis without necrosis or infection, unspecified Status: Acute Assessment and Plan: severe pancreatitis on admission, he was moved to ICU still with similar abdominal pain, required thoracentesis lactic acid was normal, developed ARABELLA and monitoring renal function/urine output SIRS criteria, managed in ICU if unable to tolerate diet then probably start enteral nutrition using DH tube (2) Transaminitis: Code(s): R74.01 - Elevation of levels of liver transaminase levels Status: Acute Assessment and Plan: from pancreatitis continue to monitor (3) Nausea & vomiting: Code(s): R11.2 - Nausea with vomiting, unspecified Status: Acute (4) Abdominal pain: Code(s): R10.9 - Unspecified abdominal pain Status: Acute Assessment and Plan: similar (5) Leukocytosis: Code(s): D72.829 - Elevated white blood cell count, unspecified Status: Acute Assessment and Plan: from pancreatitis trending down (6) SIRS (systemic inflammatory response syndrome): Code(s): R65.10 - Systemic inflammatory response syndrome (SIRS) of non-infectious origin without acute organ dysfunction Status: Acute (7) ARABELLA (acute kidney injury): Code(s): N17.9 - Acute kidney failure, unspecified Status: Acute Subjective Date/time seen: 12/23/24 13:52 Interval history: still requiring oxygen, unable to tolerate liquid diet and similar abdominal pain Review of Systems Review of Systems: All systems reviewed & are unremarkable except as noted in HPI and below Exam Narrative: General: No acute distress HEENT:? Pupils equal and reactive, sclera is clear Neck:? Supple Respiratory:? Decreased breath sounds Rt side, normal breath sounds on the Lt, no wheezing Cardiac:? S1-S2 is normal, Tachycardic, regular rhythm Abdomen:? Soft, normal bowel sounds, Distended abdomen, generalized tenderness with palpation Extremities:? Lower extremities are warm, no edema Neuro:? Alert and Oriented Skin:? Warm, dry, and intact. Psych: Normal affect Objective Data Vital Signs Vital Signs: Vital Signs - 24 hr 12/22/24 14:00 12/22/24 14:00 12/22/24 14:08 Temperature 99.8 F H Pulse Rate 121 H 121 H 121 H Respiratory Rate 17 20 Blood Pressure 113/69 Pulse Oximetry 89 L 94 Oxygen Delivery High Flow Therapy with Na Oxygen Flow Rate 45 Fraction of Inspired Oxygen 60 12/22/24 16:00 12/22/24 16:00 12/22/24 16:00 Temperature 98.3 F Pulse Rate 123 H 122 H Respiratory Rate 15 Blood Pressure 100/69 Pulse Oximetry 94 94 Oxygen Delivery High Flow Therapy with Na Oxygen Flow Rate 45 Fraction of Inspired Oxygen 60 12/22/24 16:40 12/22/24 16:50 12/22/24 18:00 Temperature Pulse Rate 126 H 123 H Respiratory Rate 20 Blood Pressure Pulse Oximetry 94 93 Oxygen Delivery High Flow Therapy with Na High Flow Therapy with Na Oxygen Flow Rate 45 45 Fraction of Inspired Oxygen 60 50 12/22/24 18:00 12/22/24 20:00 12/22/24 20:00 Temperature 100.5 F H Pulse Rate 123 H 127 H Respiratory Rate 22 H Blood Pressure 109/89 Pulse Oximetry 91 94 Oxygen Delivery High Flow Therapy with Na Oxygen Flow Rate 45 Fraction of Inspired Oxygen 50 12/22/24 20:00 12/22/24 20:20 12/22/24 20:36 Temperature 99.9 F H Pulse Rate 127 H 127 H 124 H Respiratory Rate 13 22 H 20 Blood Pressure 112/57 L Pulse Oximetry 94 Oxygen Delivery Oxygen Flow Rate Fraction of Inspired Oxygen 12/22/24 20:37 12/22/24 22:00 12/22/24 22:00 Temperature Pulse Rate 124 H 126 H 126 H Respiratory Rate 14 Blood Pressure 141/82 H Pulse Oximetry 92 94 Oxygen Delivery High Flow Therapy with Na Oxygen Flow Rate 45 Fraction of Inspired Oxygen 50 12/22/24 22:44 12/22/24 23:37 12/23/24 00:00 Temperature Pulse Rate 124 H 120 H Respiratory Rate 19 Blood Pressure Pulse Oximetry 96 97 Oxygen Delivery BiPAP BiPAP Oxygen Flow Rate Fraction of Inspired Oxygen 70 12/23/24 00:00 12/23/24 01:40 12/23/24 02:20 Temperature 99.7 F H 98.9 F Pulse Rate 120 H 116 H 117 H Respiratory Rate 13 13 20 Blood Pressure 134/85 117/87 Pulse Oximetry 96 97 Oxygen Delivery Oxygen Flow Rate Fraction of Inspired Oxygen 12/23/24 02:30 12/23/24 02:31 12/23/24 03:40 Temperature Pulse Rate 119 H 117 H Respiratory Rate 16 20 Blood Pressure Pulse Oximetry 98 98 Oxygen Delivery BiPAP BiPAP Oxygen Flow Rate Fraction of Inspired Oxygen 60 12/23/24 03:45 12/23/24 04:00 12/23/24 05:03 Temperature 99.2 F Pulse Rate 117 H 119 H 120 H Respiratory Rate 20 19 Blood Pressure 123/71 Pulse Oximetry 97 95 Oxygen Delivery High Flow Therapy with Na Oxygen Flow Rate 45 Fraction of Inspired Oxygen 50 12/23/24 05:15 12/23/24 06:00 12/23/24 07:32 Temperature 100.2 F H Pulse Rate 120 H 120 H 119 H Respiratory Rate 19 24 H Blood Pressure 135/85 135/88 Pulse Oximetry 95 96 Oxygen Delivery Oxygen Flow Rate Fraction of Inspired Oxygen 12/23/24 08:00 12/23/24 08:00 12/23/24 08:00 Temperature 100.6 F H Pulse Rate 124 H 122 H Respiratory Rate 27 H 23 H Blood Pressure 125/67 Pulse Oximetry 97 97 Oxygen Delivery High Flow Therapy with Na Oxygen Flow Rate 45 Fraction of Inspired Oxygen 50 12/23/24 08:21 12/23/24 08:22 12/23/24 08:47 Temperature 100.6 F H Pulse Rate 121 H 122 H Respiratory Rate 20 20 Blood Pressure Pulse Oximetry 96 Oxygen Delivery High Flow Therapy with Na Oxygen Flow Rate 45 Fraction of Inspired Oxygen 50 12/23/24 09:34 12/23/24 09:47 12/23/24 10:00 Temperature 100.2 F H 100.2 F H 100.4 F H Pulse Rate 124 H 123 H Respiratory Rate 26 H 24 H Blood Pressure 139/90 130/71 Pulse Oximetry 96 96 Oxygen Delivery Oxygen Flow Rate Fraction of Inspired Oxygen 12/23/24 10:00 12/23/24 10:06 12/23/24 12:00 Temperature Pulse Rate 125 H Respiratory Rate 24 H Blood Pressure Pulse Oximetry 97 97 Oxygen Delivery High Flow Therapy with Na Oxygen Flow Rate 45 Fraction of Inspired Oxygen 45 40 12/23/24 12:00 12/23/24 12:00 12/23/24 13:12 Temperature 100.6 F H Pulse Rate 116 H 117 H 118 H Respiratory Rate 23 H 18 Blood Pressure 105/70 Pulse Oximetry 97 94 Oxygen Delivery High Flow Therapy with Na Oxygen Flow Rate 45 Fraction of Inspired Oxygen 35 12/23/24 13:14 12/23/24 13:38 Temperature 100.4 F H Pulse Rate 117 H 119 H Respiratory Rate 20 19 Blood Pressure 122/71 Pulse Oximetry 94 Oxygen Delivery Oxygen Flow Rate Fraction of Inspired Oxygen Intake/Output Intake/Output: Intake & Output 12/20/24 12/21/24 12/22/24 12/23/24 23:59 23:59 23:59 23:59 Intake Total 3100 2973.0 1920 Output Total 650 1000 550 Balance 2450 1973.0 1370 Meds/Results Medications: Active Medications Generic Name Dose Route Start Last Admin Trade Name Freq PRN Reason Stop Dose Admin Acetaminophen 650 mg 12/23/24 08:17 12/23/24 08:47 Acetaminophen Elixir 325 Mg/10.15 Ml Udc PO 650 mg Q6H PRN Administration Mild Pain (1-3) or Fever Dextrose 12.5 gm 12/21/24 16:02 Dextrose 50% 25 Gm/50 Ml Syringe IV PUSH PRN PRN Hypoglycemia Protocol Enoxaparin Sodium 40 mg 12/22/24 09:00 12/23/24 07:59 Enoxaparin 40 Mg/0.4 Ml Syringe SUB-Q 40 mg DAILY LUIS Administration Glucagon 1 mg 12/21/24 16:02 Glucagon For Inj 1 Mg Vial IM PRN PRN Hypoglycemia Protocol Glucose 15 gm 12/21/24 16:02 Glucose Oral Gel 15 Gm Of Glucse In 37.5 Gm Tube PO PRN PRN Hypoglycemia Protocol Hydromorphone HCl 0.5 mg 12/21/24 04:20 12/23/24 13:35 Hydromorphone Hcl Inj (*Crx) 2 Mg/Ml Vial IV PUSH 0.5 mg Q2H PRN Administration Breakthrough Pain Metronidazole 500 mg in 100 mls @ 100 mls/hr 12/21/24 14:00 12/23/24 13:39 Flagyl 500 Mg/Iso Soln 100 Ml IVPB 100 mls/hr Q8H LUIS Administration Dextrose 1,000 mls @ 100 mls/hr 12/21/24 16:02 Dextrose 5% 1,000 Ml IVPB PRN PRN Hypoglycemia Protocol Lactated Ringer's 1,000 mls @ 75 mls/hr 12/22/24 14:00 12/23/24 04:57 Lr - Lactated Ringers Iv IV CONT 75 mls/hr .[id number] LUIS Administration Levofloxacin/Dextrose 750 mg in 150 mls @ 100 mls/hr 12/24/24 07:00 Levaquin 750 Mg/D5w 150 Ml IVPB Q48H [facility] Insulin Aspart 2 - 5 units 12/21/24 17:00 12/23/24 11:20 Insulin Aspart (*Bkc) 100 Units/Ml SUB-Q Not Given TIDWM [facility] Protocol Ipratropium Drake 0.5 mg 12/22/24 14:50 12/23/24 13:10 Ipratropium Br 0.02% Inh Soln 0.5 Mg/2.5 Ml Vial INHALATION 0.5 mg Q6HRT [facility] Administration Levalbuterol HCl 0.63 mg 12/22/24 14:50 12/23/24 13:10 Levalbuterol Neb 1.25 Mg/3 Ml INHALATION 0.63 mg Q6HRT [facility]IS Administration Ondansetron HCl 4 mg 12/21/24 04:21 12/23/24 11:35 Ondansetron Inj 4 Mg/2 Ml Vial IV PUSH 4 mg Q8H PRN Administration Vomiting Pantoprazole Sodium 40 mg 12/23/24 09:00 12/23/24 07:59 Pantoprazole Sodium Iv 40 Mg Vial IV PUSH 40 mg QAM LUIS Administration Polyethylene Glycol 17 gm 12/23/24 10:10 12/23/24 11:19 Polyethylene Glycol 3350 17 Gm Powd.Pack PO 17 gm QAM LUIS Administration Fluticasone/Salmeterol 2 puff 12/22/24 08:00 12/23/24 08:18 Fluticasone/Salmeterol 115-21 Mcg Inhaler 1 Puff INHALATION 2 puff Q12HRT [facility]IS Administration Senna/Docusate Sodium 1 tab 12/23/24 10:10 12/23/24 11:19 Senna/Docusate Sodium Tablet PO 1 tab Q12HR [facility] Administration Vancomycin HCl 1 each 12/21/24 22:44 Vancomycin For Acute Kidney Injury IVPB PRN PRN Vancomycin Protocol Radiology Results: ITS Impressions Abdomen/Pelvis CT 12/21/24 06:41 Impression: Findings compatible with acute pancreatitis, as detailed above. Extensive apparent soft tissue thickening or inflammatory change surrounding the SMV and main portal vein in particular. Superimposed/associated vasculitis is a consideration. No pseudoaneurysm/aneurysm identified on this exam. Small right pleural effusion and minimal left pleural effusion with mild bibasilar pulmonary edema/atelectasis. Gallbladder wall thickening is likely reactive. 6 cm left renal cyst with 1.3 cm area of mural nodularity. Neoplastic lesion is not excluded. Pre and postcontrast renal MR advised to best assess for enhancing soft tissue lesion. Chest CT 12/21/24 11:14 IMPRESSION: Large right-sided pleural effusion with adjacent consolidation. Small left-sided pleural effusion with adjacent atelectasis. Additional findings consistent with severe hypovolemia. Upper Quadrant Ultrasound 12/21/24 12:24 IMPRESSION: Gallbladder distention with intra-abdominal fluid, related to patient's acute pancreatitis, rather than designated gallbladder disease. Requested evaluation of the superior mesenteric artery is also patent, as detailed above. Thoracentesis Ultrasound 12/21/24 18:20 IMPRESSION: 1. Successful ultrasound-guided thoracentesis yielding 650 mL of dark [id number] fluid. Chest X-Ray 12/23/24 07:19 IMPRESSION: 1. Unchanged moderate sized right and small left pleural effusions with associated basilar atelectasis versus pneumonia. Labs Labs: Laboratory Results - last 24 hr 12/22/24 12/22/24 12/22/24 13:52 16:57 19:24 WBC RBC Hgb Hct MCV MCH MCHC RDW Plt Count MPV Immature Gran % (Auto) Neut % (Auto) Lymph % (Auto) [place] % (Auto) Eos % (Auto) Baso % (Auto) Lymph # (Auto) [place] # (Auto) Eos # (Auto) Baso # (Auto) Abs Immat Gran (auto) Absolute Neuts (auto) Absolute Nucleated RBC Total Counted Neutrophils % (Manual) Band Neutrophils % Lymphocytes % (Manual) Monocytes % (Manual) Nucleated RBC % Abs Neuts (Manual) Abs Lymphs (Manual) Abs Monocytes (Manual) Platelet Estimate Hypochromasia [place] Cells Schistocytes Puncture Site Right radial ABG pH 7.437 ABG pCO2 37.3 ABG pO2 96.7 ABG PO2/FiO2 Ratio 1.38 ABG HCO3 24.6 ABG O2 Saturation 97.6 ABG O2 Content 19.6 ABG Base Excess 0.7 A-a Gradient 362.3 Oxyhemoglobin 97.0 Carboxyhemoglobin 0.6 Methemoglobin 0.3 Reduced Hemoglobin 2.1 Total Hemoglobin 14.3 O2 Delivery Device Non-invasive vent O2 Liters/Min Not Reportable Vent Rate 16 FiO2 70 Expiratory Pressure 6 Inspiratory Pressure 12 Sodium Potassium Chloride Carbon Dioxide Anion Gap BUN Creatinine Estim Creat Clear Calc Estimated GFR Glucose POC Capillary Glucose 138 H Lactic Acid Calcium Magnesium Total Bilirubin AST ALT Alkaline Phosphatase C-Reactive Protein Total Protein Albumin Lipase Vancomycin Trough 6.4 L 12/22/24 12/23/24 12/23/24 20:53 06:10 08:18 WBC 10.7 H RBC 3.75 L Hgb 11.1 L D Hct 34.5 L MCV 92.0 MCH 29.6 MCHC 32.2 RDW 13.5 Plt Count 147 L MPV 9.7 Immature Gran % (Auto) Not Reportable Neut % (Auto) Not Reportable Lymph % (Auto) Not Reportable [place] % (Auto) Not Reportable Eos % (Auto) Not Reportable Baso % (Auto) Not Reportable Lymph # (Auto) Not Reportable [place] # (Auto) Not Reportable Eos # (Auto) Not Reportable Baso # (Auto) Not Reportable Abs Immat Gran (auto) Not Reportable Absolute Neuts (auto) Not Reportable Absolute Nucleated RBC Not Reportable Total Counted 100 Neutrophils % (Manual) 67 Band Neutrophils % 21 H Lymphocytes % (Manual) 4.0 L Monocytes % (Manual) 8 Nucleated RBC % Not Reportable Abs Neuts (Manual) 9.41 H Abs Lymphs (Manual) 0.42 L Abs Monocytes (Manual) 0.85 Platelet Estimate Adequate Hypochromasia 1+ [place] Cells 1+ Schistocytes None seen Puncture Site ABG pH ABG pCO2 ABG pO2 ABG PO2/FiO2 Ratio ABG HCO3 ABG O2 Saturation ABG O2 Content ABG Base Excess A-a Gradient Oxyhemoglobin Carboxyhemoglobin Methemoglobin Reduced Hemoglobin Total Hemoglobin O2 Delivery Device O2 Liters/Min Vent Rate FiO2 Expiratory Pressure Inspiratory Pressure Sodium 139 Potassium 4.2 Chloride 105 Carbon Dioxide 27 Anion Gap 7 BUN 64 H D Creatinine 1.65 H Estim Creat Clear Calc 48 Estimated GFR 42 L Glucose 143 H POC Capillary Glucose 164 H 141 H Lactic Acid 1.1 Calcium 5.3 L* Magnesium 1.7 Total Bilirubin 2.0 H AST 60 H ALT 58 H Alkaline Phosphatase 21 L C-Reactive Protein 28.9 H Total Protein 6.0 L Albumin 4.1 Lipase 842 H Vancomycin Trough 12/23/24 11:17 WBC RBC Hgb Hct MCV MCH MCHC RDW Plt Count MPV Immature Gran % (Auto) Neut % (Auto) Lymph % (Auto) [place] % (Auto) Eos % (Auto) Baso % (Auto) Lymph # (Auto) [place] # (Auto) Eos # (Auto) Baso # (Auto) Abs Immat Gran (auto) Absolute Neuts (auto) Absolute Nucleated RBC Total Counted Neutrophils % (Manual) Band Neutrophils % Lymphocytes % (Manual) Monocytes % (Manual) Nucleated RBC % Abs Neuts (Manual) Abs Lymphs (Manual) Abs Monocytes (Manual) Platelet Estimate Hypochromasia [place] Cells Schistocytes Puncture Site ABG pH ABG pCO2 ABG pO2 ABG PO2/FiO2 Ratio ABG HCO3 ABG O2 Saturation ABG O2 Content ABG Base Excess A-a Gradient Oxyhemoglobin Carboxyhemoglobin Methemoglobin Reduced Hemoglobin Total Hemoglobin O2 Delivery Device O2 Liters/Min Vent Rate FiO2 Expiratory Pressure Inspiratory Pressure Sodium Potassium Chloride Carbon Dioxide Anion Gap BUN Creatinine Estim Creat Clear Calc Estimated GFR Glucose POC Capillary Glucose 148 H Lactic Acid Calcium Magnesium Total Bilirubin AST ALT Alkaline Phosphatase C-Reactive Protein Total Protein Albumin Lipase Vancomycin Trough
[2024-12-23 16:14] LABS: Glucose Point of Care 173 mg/dl (65-105)
[2024-12-23] MEDS: HYDROcodone/acetaminophen (*CRX) 5-325 MG TABLET 1 TAB PO (18:23)
[2024-12-23 21:54] LABS: Glucose Point of Care 161 mg/dl (65-105)
[2024-12-24] VITALS (16 sets, daily range): BP systolic 109–134; BP diastolic 79–90; PULSE 117–130; RESP 16–30; TEMP 37.7–38.1; O2SAT 89–100
[2024-12-24] MEDS: HYDROcodone/acetaminophen (*CRX) 5-325 MG TABLET 1 TAB PO ×2 (00:43→10:16)
[2024-12-24] MEDS: IPRATROPIUM BR 0.02% INH SOLN 0.5 MG/2.5 ML VIAL INHALATION (02:02)
[2024-12-24] MEDS: LEVALBUTEROL NEB 1.25 MG/3 ML 0.63 MG INHALATION ×2 (02:02→08:33)
[2024-12-24] MEDS: HYDROmorphone HCL INJ (*CRX) 2 MG/ML VIAL 0.5 MG IV PUSH ×5 (02:07→12:19)
[2024-12-24] MEDS: ONDANSETRON INJ 4 MG/2 ML VIAL IV PUSH ×2 (04:05→13:30)
[2024-12-24 04:25] LABS: Basophils Absolute Auto 0.1 K/mm3 (0.0-0.1); Basophils Percent Auto 0.5 % (0.2-1.2); Eosinophils Percent Auto 0.3 % (0-4.4); Hematocrit 32.3 % (42.0-52.0); Hemoglobin 10.5 g/dL (14.0-18.0); Immature Granulocyte Absolute 0.05 K/mm3 (0.00-0.031); Immature Granulocyte Percent A 0.5 % (0-0.5); Lymphocytes Absolute Auto 0.47 K/mm3 (0.9-3.2); Lymphocytes Percent Auto 4.2 % (18.3-44.2); Mean Corpuscular HGB Conc 32.5 g/dl (32-36); Mean Corpuscular Hemoglobin 29.6 pg (26-34); Monocytes Absolute Auto 0.9 K/mm3 (0.1-0.6); Monocytes Percent Auto 8.5 % (2.6-8.5); Neutrophils Absolute Auto 9.5 K/mm3 (1.3-6.7); Platelet Count Result 165 k/mm3 (150-375); Red Blood Count 3.55 M/mm3 (4.6-6.20); Red Cell Distribution Width 13.6 % (11.5-14.5); White Blood Count 11.1 K/mm3 (4.5-10.0)
[2024-12-24 04:38] LABS: INR 1.6; Lactic Acid Reflex 1.2 mmol/L (0.7-2.0)
[2024-12-24 04:39] LABS: Partial Thromboplastin Time 28.9 Seconds (22.3-36.8)
[2024-12-24 05:02] LABS: Alanine Aminotransferase 47 U/L (6-50); Albumin Level 3.8 g/dL (3.5-5.1); Alkaline Phosphatase 21 U/L (38-126); Anion Gap 8 mmol/L (4-12); Aspartate Amino Transferase 83 U/L (17-59); Bilirubin,Total 1.9 mg/dL (0.2-1.3); Blood Urea Nitrogen 55 mg/dL (9-20); Calcium 5.7 mg/dL (8.4-10.2); Carbon Dioxide 27 mmol/L (22-30); Chloride 108 mmol/L (98-107); Creatine Kinase 2110 U/L (55-170); Estimated CRCL calculation 55 ml/min; Estimated Glomerular Filt Rate 51; Glucose 150 mg/dL (65-110); Lipase 510 U/L (23-300); Magnesium 1.9 mg/dL (1.6-2.3); Potassium 3.7 mmol/L (3.4-5.0); Sodium 143 mmol/L (137-145)
[2024-12-24 05:10] LABS: Thyroid Stimulating Hormone 0.846 uIU/mL (0.465-4.680)
[2024-12-24] MEDS: metroNIDAZOLE 500 MG/ISO 100ML 500 MG/100 ML BAG 100 MG IVPB (05:10)
[2024-12-24 05:17] LABS: Vancomycin Random < 5.0 ug/mL (10-20)
[2024-12-24 05:27] LABS: CRP 32.5 mg/dL (<1.0)
[2024-12-24] MEDS: levoFLOXacin 750 MG/D5W 150 ML 750 MG/150 ML BAG 100 MG IVPB (06:12)
[2024-12-24] MEDS: ALBUMIN HUMAN 5% 250 ML IV CONT (07:28)
[2024-12-24] MEDS: VANCOMYCIN 1,500 MG/NS 500 ML 1,500 MG/500 ML BAG 250 MG IVPB (07:28)
[2024-12-24] MEDS: ACETAMINOPHEN ELIXIR 325 MG/10.15 ML UDC 650 MG PO (07:59)
[2024-12-24] MEDS: polyethylene glycoL 3350 17 GM POWD.PACK PO (08:00)
[2024-12-24] MEDS: LACTATED RINGERS 1,000 ML 75 ML IV CONT (08:00)
[2024-12-24] MEDS: PANTOPRAZOLE SODIUM IV 40 MG VIAL IV PUSH (08:00)
[2024-12-24] MEDS: SENNA/DOCUSATE SODIUM TABLET 1 TAB PO (08:00)
[2024-12-24] MEDS: ENOXAPARIN 40 MG/0.4 ML SYRINGE SUB-Q (08:00)
--- NOTE | 2024-12-24 08:08 | P.PNINT_ITS ---
Progress Note: A&P Assessment and Plan (1) Acute pancreatitis: Code(s): K85.90 - Acute pancreatitis without necrosis or infection, unspecified Status: Acute Assessment and Plan: 12/21: Pt presented to the Emergency Department for sudden onset of abdominal pain, nausea, vomiting, and SOB. In the ED, he was found to have WBC of 21, AST of 512, [place] 493[place] [id number]. 12/21: CT abdomen and pelvis was performed at that time and demonstrated small right pleural effusion, minimal left pleural effusion with mild bibasilar pulmonary edema/atelectasis, gallbladder wall thickening, and extensive peripancreatic fluid and inflammatory change c/w acute pancreatitis. - He was admitted to the medical floor under hospitalist Service, -was initially given 2 L IV fluid bolus in the ER and started on levofloxacin. 12/21:CT chest performed which demonstrated acute increase in pleural effusion size from small to large on the right and underwent an ultrasound-guided thoracentesis without complication. Pleural fluid did not suggest infection but was slightly bloody. Pleural fluid triglycerides, glucose, and albumin are still pending. Pt was started on empiric Levaquin and Flagyl. Repeat labs demonstrated acute kidney injury with low serum bicarb, hypocalcemia, and hyperkalemia. 12/21: At night patient was hypotensive with with his BP in the 80s, tachycardic her heart rates in the 130s to 140s on the medical floor, additional 2 L IV fluids were given with improvement in blood pressures. Patient was febrile,. Central line was placed in Rt IJ by Dr. Eugene and pt was transferred to the ICU for further evaluation and management. -triglyceride levels were normal, patient denies any alcohol use. No gallstone or cholecystitis present on CT scan of the abdomen and pelvis -lipase trending down 12/23: Pt continues to experience upper abdominal pain, but states this is improved with Dilaudid. -remains febrile with T-max of 100.5? - Lipase continues to trend down, currently 510, continue IV fluids (2) Sepsis: Code(s): A41.9 - Sepsis, unspecified organism Status: Acute Assessment and Plan: Patient presented with hypotension, tachycardia, fevers, pancreatitis -lactic acid was checked after fluid administration which was within normal limb -procalcitonin levels are significantly elevated -12/21: Started on Levaquin, Flagyl and vancomycin, will continue -12/21: Preliminary blood cultures are negative x2 -adequately fluid-resuscitated -will give additional albumin this morning -Leukocytosis likely due to acute pancreatitis/pneumonia/sepsis -improving -elevated CRP -12/24: Will repeat CT scan of the chest abdomen and pelvis without contrast 12/22/2024: Echocardiogram Summary 1. Definity contrast administered improved wall motion interpretation. 2. Left ventricular chamber dimension is normal. 3. Left ventricular systolic function is normal, estimated at 65-70%. 4. The left ventricular diastolic function is grade I diastolic dysfunction. 5. E/e' 5 is not elevated. 6. There is mild aortic valve sclerosis. 7. There is trace pulmonic regurgitation. 8. There is small circumferential pericardial effusion. 12/23-WBC count improving, Continue antibiotics as above (3) Transaminitis: Code(s): R74.01 - Elevation of levels of liver transaminase levels Status: Acute Assessment and Plan: Initial LFTs were AST of 512 and ALT of 493. 12/22- liver transaminase levels are improved with AST of 74 and ALT of 146 LFTs improving -will continue to monitor (4) Aspiration pneumonia: Code(s): J69.0 - Pneumonitis due to inhalation of food and vomit Status: Acute Assessment and Plan: 12/21- CT abdomen and pelvis was performed in the ED and demonstrated small right pleural effusion, minimal left pleural effusion with mild bibasilar pulmonary edema/atelectasis, gallbladder wall thickening, and extensive peripancreatic fluid and inflammatory change c/w acute pancreatitis. While admitted, he had a repeat CT chest performed which demonstrated acute increase in pleural effusion size from small to large on the right and underwent an ultrasound-guided thoracentesis without complication. Pleural fluid did not suggest infection but was slightly bloody. Pleural fluid triglycerides, glucose, and albumin are still pending. Pt was started on empiric Levaquin and Flagyl. -12/24: FiO2 requirements trending down, currently on 5 L nasal cannula, patient wore his BiPAP intermittently overnight -continue antibiotics as above -chest x-ray reviewed (5) Leukocytosis: Code(s): D72.829 - Elevated white blood cell count, unspecified Status: Acute Assessment and Plan: Likely related to acute pancreatitis/pneumonia Initial WBC was 21. WBC count continues to improve, Continue antibiotics - will continue to monitor (6) Nausea & vomiting: Code(s): R11.2 - Nausea with vomiting, unspecified Status: Acute Assessment and Plan: -improved following IVF, will continue to monitor -Zofran 4mg prn 12/24-patient started on clear liquid diet on 12/23, not tolerating well, states he was to try again today (7) Abdominal pain: Code(s): R10.9 - Unspecified abdominal pain Status: Acute Assessment and Plan: -Likely related to acute pancreatitis -Pain is well controlled with Dilaudid -added [place] (8) ARABELLA (acute kidney injury): Code(s): N17.9 - Acute kidney failure, unspecified Status: Acute Assessment and Plan: Acute kidney injury on on admission with creatinine of 2.12 (baseline creatinine of 0.97) -patient has been adequately fluid-resuscitated -developed pulmonary edema -albumin was further used to and intravascular volume expansion -urine output has been good -creatinine trending down -CT scan of the abdomen pelvis showed a 3 mm nonobstructing right renal stone, 6 cm left renal cyst with an area of a padded focal mural nodularity measuring 1.3 cm, no hydronephrosis was seen -urine lytes have been ordered -CK levels were elevated -nephrology has been consulted Plan DVT prophylaxis: Lovenox SQ Stress ulcer prophylaxis: Protonix Nutrition: Clear liquid diet Code Status: Full code Critical Care Time Spent: 33 minutes Discussed with patient and his spouse at bedside and updated them with patient's condition and plan of care. I answered all questions. They are aware that patient will be going for a CT scan of the chest, abdomen and pelvis Due to a high probability of clinically significant, life threatening deterioration, the patient required my highest level of preparedness to intervene emergently and I personally spent this critical care time directly and personally managing the patient. This critical care time included obtaining a history; examining the patient; pulse oximetry; ordering and review of studies; arranging urgent treatment with development of a management plan; evaluation of patient's response to treatment; frequent reassessment; and discussions with other providers. It was exclusive of separately billable procedures and treating other patients and teaching time. Please see Assessment and Plan section and the rest of the note for further information on patient assessment and treatment This dictation may have been done utilizing a voice recognition system. Attempts have been made to correct errors. However, there may be uncorrected grammatical, spelling, and recognitions errors present. Subjective Date/time seen: 12/24/24 08:08 Interval history: Pt admitted to ICU for acute pancreatitis, elevated liver transaminases, and pneumonitis on 12/21/24. 12/24: Pt reports that he is still experiencing upper abdominal pain that is intermittent and improved with Dilaudid. He denies nausea and vomiting currently. Patient not tolerating full liquid diet. Febrile with T-max of 100.5?, improved urine output, hemodynamically stable. Creatinine and lipase improving. Oxygen requirements have decreased, patient wore his BiPAP intermittently overnight Interval History: 12/21- Empiric Levaquin, Flagyl, and Vancomycin ordered 12/21- Blood cultures negative 12/21- US-guided thoracentesis of Rt pleural effusion with 650mL output 12/21- Rapid response called while pt was admitted to medicine floor, Rt IJ central line placed. Transferred to ICU 12/22- Echo performed with EF of 65-70% Review of Systems Review of Systems: All systems reviewed & are unremarkable except as noted in HPI and below Exam Narrative: General: Pleasant gentleman, in no acute distress HEENT:? Pupils equal and reactive, sclera is clear Neck:? Supple Respiratory:? Coarse breath sounds bilateral bases, no rales, no wheezing, adequate air entry Cardiac:? S1-S2 is normal, Tachycardic, regular rhythm Abdomen:? Soft, hypoactive bowel sounds, Distended abdomen, generalized tenderness with palpation Extremities:? Lower extremities are warm, no edema, palpable pedal pulses Neuro:? Alert and Oriented Skin:? Warm, dry, and intact. Few scattered, raised papules on Lt lower pannus with no surrounding erythema, fluctuance, or purulent drainage Psych: Normal affect Objective Data Vital Signs Vital Signs: Vital Signs - 24 hr 12/23/24 08:21 12/23/24 08:22 12/23/24 08:47 Temperature 100.6 F H Pulse Rate 121 H 122 H Respiratory Rate 20 20 Blood Pressure Pulse Oximetry 96 Oxygen Delivery High Flow Therapy with Na Oxygen Flow Rate 45 Fraction of Inspired Oxygen 50 12/23/24 09:34 12/23/24 09:47 12/23/24 10:00 Temperature 100.2 F H 100.2 F H 100.4 F H Pulse Rate 124 H 123 H Respiratory Rate 26 H 24 H Blood Pressure 139/90 130/71 Pulse Oximetry 96 96 Oxygen Delivery Oxygen Flow Rate Fraction of Inspired Oxygen 12/23/24 10:00 12/23/24 10:06 12/23/24 12:00 Temperature Pulse Rate 125 H Respiratory Rate 24 H Blood Pressure Pulse Oximetry 97 97 Oxygen Delivery High Flow Therapy with Na Oxygen Flow Rate 45 Fraction of Inspired Oxygen 45 40 12/23/24 12:00 12/23/24 12:00 12/23/24 13:00 Temperature 100.6 F H Pulse Rate 116 H 117 H Respiratory Rate 23 H 19 Blood Pressure 105/70 Pulse Oximetry 97 97 Oxygen Delivery High Flow Therapy with Na Oxygen Flow Rate 45 Fraction of Inspired Oxygen 30 12/23/24 13:12 12/23/24 13:14 12/23/24 13:38 Temperature 100.4 F H Pulse Rate 118 H 117 H 119 H Respiratory Rate 18 20 19 Blood Pressure 122/71 Pulse Oximetry 94 94 Oxygen Delivery High Flow Therapy with Na Oxygen Flow Rate 45 Fraction of Inspired Oxygen 35 12/23/24 13:53 12/23/24 13:54 12/23/24 14:00 Temperature Pulse Rate 121 H Respiratory Rate Blood Pressure Pulse Oximetry 96 96 Oxygen Delivery High Flow Nasal Cannula High Flow Nasal Cannula Oxygen Flow Rate 6 4 Fraction of Inspired Oxygen 12/23/24 14:00 12/23/24 14:18 12/23/24 15:18 Temperature 100.6 F H 100.6 F H 100.6 F H Pulse Rate 120 H Respiratory Rate 22 H Blood Pressure 129/71 Pulse Oximetry 96 Oxygen Delivery Oxygen Flow Rate Fraction of Inspired Oxygen 12/23/24 15:40 12/23/24 16:00 12/23/24 16:00 Temperature 100.4 F H 100.3 F H Pulse Rate 117 H 117 H Respiratory Rate 25 H 18 18 Blood Pressure 133/84 Pulse Oximetry 93 93 93 Oxygen Delivery High Flow Nasal Cannula Oxygen Flow Rate 6 Fraction of Inspired Oxygen 12/23/24 16:00 12/23/24 18:00 12/23/24 18:00 Temperature 100.5 F H Pulse Rate 117 H 129 H 130 H Respiratory Rate 24 H Blood Pressure 115/91 H Pulse Oximetry 94 Oxygen Delivery Oxygen Flow Rate Fraction of Inspired Oxygen 12/23/24 19:45 12/23/24 19:46 12/23/24 20:00 Temperature Pulse Rate 121 H 120 H Respiratory Rate 18 Blood Pressure Pulse Oximetry 97 99 Oxygen Delivery High Flow Nasal Cannula High Flow Nasal Cannula Oxygen Flow Rate 6 5 Fraction of Inspired Oxygen 12/23/24 20:00 12/23/24 20:00 12/23/24 20:01 Temperature 100.7 F H Pulse Rate 135 H 135 H 134 H Respiratory Rate 12 15 Blood Pressure 116/87 Pulse Oximetry 99 Oxygen Delivery Oxygen Flow Rate Fraction of Inspired Oxygen 12/23/24 22:00 12/23/24 22:00 12/23/24 23:15 Temperature 99.9 F H Pulse Rate 126 H 126 H 124 H Respiratory Rate 16 18 Blood Pressure 125/104 H Pulse Oximetry 98 96 Oxygen Delivery BiPAP Oxygen Flow Rate Fraction of Inspired Oxygen 12/24/24 00:00 12/24/24 00:00 12/24/24 00:00 Temperature 100.2 F H Pulse Rate 123 H 123 H Respiratory Rate 18 Blood Pressure 119/81 Pulse Oximetry 92 92 Oxygen Delivery High Flow Nasal Cannula Oxygen Flow Rate 4 Fraction of Inspired Oxygen 12/24/24 02:00 12/24/24 02:00 12/24/24 02:02 Temperature 100.5 F H Pulse Rate 122 H 122 H 130 H Respiratory Rate 20 20 Blood Pressure 134/90 Pulse Oximetry 100 Oxygen Delivery Oxygen Flow Rate Fraction of Inspired Oxygen 12/24/24 02:20 12/24/24 03:15 12/24/24 04:00 Temperature 100.3 F H Pulse Rate 128 H 126 H 121 H Respiratory Rate 19 20 22 H Blood Pressure 130/88 Pulse Oximetry 96 89 L Oxygen Delivery BiPAP Oxygen Flow Rate Fraction of Inspired Oxygen 12/24/24 04:00 12/24/24 04:00 12/24/24 06:00 Temperature Pulse Rate 121 H 122 H Respiratory Rate Blood Pressure Pulse Oximetry 89 L Oxygen Delivery High Flow Nasal Cannula Oxygen Flow Rate 5 Fraction of Inspired Oxygen 12/24/24 06:00 Temperature 100.2 F H Pulse Rate 122 H Respiratory Rate 16 Blood Pressure 126/84 Pulse Oximetry 92 Oxygen Delivery Oxygen Flow Rate Fraction of Inspired Oxygen Intake/Output Intake/Output: Intake & Output 12/21/24 12/22/24 12/23/24 12/24/24 23:59 23:59 23:59 23:59 Intake Total 3100 2973.0 3340 1300 Output Total 650 1000 1700 1150 Balance 2450 1973.0 1640 150 Meds/Results Medications: Active Medications Generic Name Dose Route Start Last Admin Trade Name Freq PRN Reason Stop Dose Admin Acetaminophen 650 mg 12/23/24 08:17 12/24/24 07:59 Acetaminophen Elixir 325 Mg/10.15 Ml Udc PO 650 mg Q6H PRN Administration Mild Pain (1-3) or Fever Hydrocodone Bitart/Acetaminophen 1 tab 12/23/24 18:04 12/24/24 00:43 Hydrocodone/Acetaminophen (*Crx) 5-325 Mg Tablet PO 1 tab Q6H PRN Administration Pain Rated 4-6 Dextrose 12.5 gm 12/21/24 16:02 Dextrose 50% 25 Gm/50 Ml Syringe IV PUSH PRN PRN Hypoglycemia Protocol Enoxaparin Sodium 40 mg 12/22/24 09:00 12/24/24 08:00 Enoxaparin 40 Mg/0.4 Ml Syringe SUB-Q 40 mg DAILY LUIS Administration Glucagon 1 mg 12/21/24 16:02 Glucagon For Inj 1 Mg Vial IM PRN PRN Hypoglycemia Protocol Glucose 15 gm 12/21/24 16:02 Glucose Oral Gel 15 Gm Of Glucse In 37.5 Gm Tube PO PRN PRN Hypoglycemia Protocol Hydromorphone HCl 0.5 mg 12/21/24 04:20 12/24/24 06:13 Hydromorphone Hcl Inj (*Crx) 2 Mg/Ml Vial IV PUSH 0.5 mg Q2H PRN Administration Breakthrough Pain Metronidazole 500 mg in 100 mls @ 100 mls/hr 12/21/24 14:00 12/24/24 06:10 Flagyl 500 Mg/Iso Soln 100 Ml IVPB Infused Q8H LUIS Infusion Dextrose 1,000 mls @ 100 mls/hr 12/21/24 16:02 Dextrose 5% 1,000 Ml IVPB PRN PRN Hypoglycemia Protocol Lactated Ringer's 1,000 mls @ 75 mls/hr 12/22/24 14:00 12/24/24 08:00 Lr - Lactated Ringers Iv IV CONT 75 mls/hr .[id number] LUIS Administration Vancomycin HCl 1,500 mg in 500 mls @ 250 mls/hr 12/24/24 08:00 12/24/24 07:28 Vancomycin 1,500 Mg/Ns 500 Ml IVPB 250 mls/hr Q24H LUIS Administration Albumin Human 250 mls @ 62.5 mls/hr 12/24/24 07:45 12/24/24 07:28 Albumin Human 5% IV CONT 12/24/24 11:44 62.5 mls/hr .Q4H ONE Administration Levofloxacin/Dextrose 750 mg in 150 mls @ 100 mls/hr 12/25/24 06:00 Levaquin 750 Mg/D5w 150 Ml IVPB Q24H LUIS Insulin Aspart 2 - 5 units 12/21/24 17:00 12/24/24 07:59 Insulin Aspart (*Bkc) 100 Units/Ml SUB-Q Not Given [facility] Protocol Ipratropium [place] 0.5 mg 12/22/24 14:50 12/24/24 02:02 Ipratropium Br 0.02% Inh Soln 0.5 Mg/2.5 Ml Vial INHALATION 0.5 mg Q6HRT LUIS Administration Levalbuterol HCl 0.63 mg 12/22/24 14:50 12/24/24 02:02 Levalbuterol Neb 1.25 Mg/3 Ml INHALATION 0.63 mg Q6HRT LUIS Administration Ondansetron HCl 4 mg 12/23/24 18:18 12/24/24 04:05 Ondansetron Inj 4 Mg/2 Ml Vial IV PUSH 4 mg Q4H PRN Administration Nausea And Vomiting Pantoprazole Sodium 40 mg 12/23/24 09:00 12/24/24 08:00 Pantoprazole Sodium Iv 40 Mg Vial IV PUSH 40 mg QAM LUIS Administration Polyethylene Glycol 17 gm 12/23/24 10:10 12/24/24 08:00 Polyethylene Glycol 3350 17 Gm Powd.Pack PO 17 gm QAM LUIS Administration Fluticasone/Salmeterol 2 puff 12/22/24 08:00 12/23/24 19:44 Fluticasone/Salmeterol 115-21 Mcg Inhaler 1 Puff INHALATION 2 puff Q12HRT LUIS Administration Senna/Docusate Sodium 1 tab 12/23/24 10:10 12/24/24 08:00 Senna/Docusate Sodium Tablet PO 1 tab Q12HR LUIS Administration Radiology Results: ITS Impressions Abdomen/Pelvis CT 12/21/24 06:41 Impression: Findings compatible with acute pancreatitis, as detailed above. Extensive apparent soft tissue thickening or inflammatory change surrounding the SMV and main portal vein in particular. Superimposed/associated vasculitis is a consideration. No pseudoaneurysm/aneurysm identified on this exam. Small right pleural effusion and minimal left pleural effusion with mild bibasilar pulmonary edema/atelectasis. Gallbladder wall thickening is likely reactive. 6 cm left renal cyst with 1.3 cm area of mural nodularity. Neoplastic lesion is not excluded. Pre and postcontrast renal MR advised to best assess for enhancing soft tissue lesion. Chest CT 12/21/24 11:14 IMPRESSION: Large right-sided pleural effusion with adjacent consolidation. Small left-sided pleural effusion with adjacent atelectasis. Additional findings consistent with severe hypovolemia. Upper Quadrant Ultrasound 12/21/24 12:24 IMPRESSION: Gallbladder distention with intra-abdominal fluid, related to patient's acute pancreatitis, rather than designated gallbladder disease. Requested evaluation of the superior mesenteric artery is also patent, as detailed above. Thoracentesis Ultrasound 12/21/24 18:20 IMPRESSION: 1. Successful ultrasound-guided thoracentesis yielding 650 mL of dark [id number] fluid. Chest X-Ray 12/24/24 05:44 Impression: 1: Mild interstitial edema with bilateral pleural effusions, right greater than left. Labs Labs: Laboratory Results - last 24 hr 12/23/24 12/23/24 12/23/24 08:18 11:17 16:11 WBC RBC Hgb Hct MCV MCH MCHC RDW Plt Count MPV Immature Gran % (Auto) Neut % (Auto) Lymph % (Auto) [place] % (Auto) Eos % (Auto) Baso % (Auto) Lymph # (Auto) [place] # (Auto) Eos # (Auto) Baso # (Auto) Abs Immat Gran (auto) Absolute Neuts (auto) Absolute Nucleated RBC Nucleated RBC % PT INR APTT Sodium Potassium Chloride Carbon Dioxide Anion Gap BUN Creatinine Estim Creat Clear Calc Estimated GFR Glucose POC Capillary Glucose 141 H 148 H 173 H Lactic Acid Calcium Magnesium Total Bilirubin AST ALT Alkaline Phosphatase Total Creatine Kinase C-Reactive Protein Total Protein Albumin Lipase TSH Random Vancomycin 12/23/24 12/24/24 21:47 04:11 WBC 11.1 H RBC 3.55 L Hgb 10.5 L Hct 32.3 L MCV 91.0 MCH 29.6 MCHC 32.5 RDW 13.6 Plt Count 165 MPV 10.0 Immature Gran % (Auto) 0.5 Neut % (Auto) 86.0 H Lymph % (Auto) 4.2 L [place] % (Auto) 8.5 Eos % (Auto) 0.3 Baso % (Auto) 0.5 Lymph # (Auto) 0.47 L [place] # (Auto) 0.9 H Eos # (Auto) 0.0 Baso # (Auto) 0.1 Abs Immat Gran (auto) 0.05 H Absolute Neuts (auto) 9.5 H Absolute Nucleated RBC 0.000 Nucleated RBC % 0.0 PT 19.0 H INR 1.6 APTT 28.9 Sodium 143 Potassium 3.7 Chloride 108 H Carbon Dioxide 27 Anion Gap 8 BUN 55 H Creatinine 1.42 H Estim Creat Clear Calc 55 Estimated GFR 51 L Glucose 150 H POC Capillary Glucose 161 H Lactic Acid 1.2 Calcium 5.7 L* Magnesium 1.9 Total Bilirubin 1.9 H AST 83 H ALT 47 Alkaline Phosphatase 21 L Total Creatine Kinase 2110 H C-Reactive Protein 32.5 H Total Protein 6.0 L Albumin 3.8 Lipase 510 H TSH 0.846 Random Vancomycin < 5.0 L Quality VTE Prophylaxis VTE prophylaxis: pharmacologic ordered
[2024-12-24 08:24] LABS: Glucose Point of Care 167 mg/dl (65-105)
[2024-12-24] MEDS: FLUTICASONE/SALMETEROL 115-21 MCG INHALER 1 PUFF 2 PUFF INHALATION (08:33)
[2024-12-24 08:47] LABS: Potassium Urine Random 32.2 meq/L; Sodium Urine Random < 5 meq/L
[2024-12-24 08:48] LABS: Creatine Kinase 2342 U/L (55-170)
[2024-12-24 08:56] LABS: Eosinophil Urine None Seen % (None Seen); Urine Eos QC 2nd Tech Confirmed
[2024-12-24] MEDS: CALCIUM GLUC 1,000 MG/NS 50 ML 1,000 MG/50 ML BAG 100 MG IVPB (09:08)
[2024-12-24] MEDS: CALCIUM GLUC 2,000 MG/NS 100ML 2,000 MG/100 ML BAG 100 MG IVPB (09:09)
[2024-12-24] MEDS: AZTREONAM 2 GM/NS 100 ML 2 GM/100 ML BAG IVPB (11:15)
[2024-12-24 11:26] LABS: Glucose Point of Care 164 mg/dl (65-105)
--- NOTE | 2024-12-24 12:56 | P.PNIM_ITS ---
Progress Note: A&P Assessment and Plan (1) Acute pancreatitis: Code(s): K85.90 - Acute pancreatitis without necrosis or infection, unspecified Status: Acute Assessment and Plan: 12/21: Pt presented to the Emergency Department for sudden onset of abdominal pain, nausea, vomiting, and SOB. In the ED, he was found to have WBC of 21, AST of 512, [place] 493[place] [address]. 12/21: CT abdomen and pelvis was performed at that time and demonstrated small right pleural effusion, minimal left pleural effusion with mild bibasilar pulmonary edema/atelectasis, gallbladder wall thickening, and extensive peripancreatic fluid and inflammatory change c/w acute pancreatitis. - He was admitted to the medical floor under hospitalist Service, -was initially given 2 L IV fluid bolus in the ER and started on levofloxacin. 12/21:CT chest performed which demonstrated acute increase in pleural effusion size from small to large on the right and underwent an ultrasound-guided thoracentesis without complication. Pleural fluid did not suggest infection but was slightly bloody. Pleural fluid triglycerides, glucose, and albumin are still pending. Pt was started on empiric Levaquin and Flagyl. Repeat labs demonstrated acute kidney injury with low serum bicarb, hypocalcemia, and hyperkalemia. 12/21: At night patient was hypotensive with with his BP in the 80s, tachycardic her heart rates in the 130s to 140s on the medical floor, additional 2 L IV fluids were given with improvement in blood pressures. Patient was febrile,. Central line was placed in Rt IJ by Dr. Eugene and pt was transferred to the ICU for further evaluation and management. -triglyceride levels were normal, patient denies any alcohol use. No gallstone or cholecystitis present on CT scan of the abdomen and pelvis -lipase trending down 12/23: Pt continues to experience upper abdominal pain, but states this is improved with Dilaudid. -remains febrile with T-max of 100.5? - Lipase continues to trend down, currently 510, continue IV fluids (2) Sepsis: Code(s): A41.9 - Sepsis, unspecified organism Status: Acute Assessment and Plan: Patient presented with hypotension, tachycardia, fevers, pancreatitis -lactic acid was checked after fluid administration which was within normal limb -procalcitonin levels are significantly elevated -12/21: Started on Levaquin, Flagyl and vancomycin, will continue -12/21: Preliminary blood cultures are negative x2 -adequately fluid-resuscitated -will give additional albumin this morning -Leukocytosis likely due to acute pancreatitis/pneumonia/sepsis -improving -elevated CRP -12/24: Will repeat CT scan of the chest abdomen and pelvis without contrast 12/22/2024: Echocardiogram Summary 1. Definity contrast administered improved wall motion interpretation. 2. Left ventricular chamber dimension is normal. 3. Left ventricular systolic function is normal, estimated at 65-70%. 4. The left ventricular diastolic function is grade I diastolic dysfunction. 5. E/e' 5 is not elevated. 6. There is mild aortic valve sclerosis. 7. There is trace pulmonic regurgitation. 8. There is small circumferential pericardial effusion. 12/23-WBC count improving, Continue antibiotics as above (3) Transaminitis: Code(s): R74.01 - Elevation of levels of liver transaminase levels Status: Acute Assessment and Plan: Initial LFTs were AST of 512 and ALT of 493. 12/22- liver transaminase levels are improved with AST of 74 and ALT of 146 LFTs improving -will continue to monitor (4) Aspiration pneumonia: Code(s): J69.0 - Pneumonitis due to inhalation of food and vomit Status: Acute Assessment and Plan: 12/21- CT abdomen and pelvis was performed in the ED and demonstrated small right pleural effusion, minimal left pleural effusion with mild bibasilar pulmonary edema/atelectasis, gallbladder wall thickening, and extensive peripancreatic fluid and inflammatory change c/w acute pancreatitis. While admitted, he had a repeat CT chest performed which demonstrated acute increase in pleural effusion size from small to large on the right and underwent an ultrasound-guided thoracentesis without complication. Pleural fluid did not suggest infection but was slightly bloody. Pleural fluid triglycerides, glucose, and albumin are still pending. Pt was started on empiric Levaquin and Flagyl. -12/24: FiO2 requirements trending down, currently on 5 L nasal cannula, patient wore his BiPAP intermittently overnight -continue antibiotics as above -chest x-ray reviewed (5) Leukocytosis: Code(s): D72.829 - Elevated white blood cell count, unspecified Status: Acute Assessment and Plan: Likely related to acute pancreatitis/pneumonia Initial WBC was 21. WBC count continues to improve, Continue antibiotics - will continue to monitor (6) Nausea & vomiting: Code(s): R11.2 - Nausea with vomiting, unspecified Status: Acute Assessment and Plan: -improved following IVF, will continue to monitor -Zofran 4mg prn 12/24-patient started on clear liquid diet on 12/23, not tolerating well, states he was to try again today (7) Abdominal pain: Code(s): R10.9 - Unspecified abdominal pain Status: Acute Assessment and Plan: -Likely related to acute pancreatitis -Pain is well controlled with Dilaudid -added [place] (8) ARABELLA (acute kidney injury): Code(s): N17.9 - Acute kidney failure, unspecified Status: Acute Assessment and Plan: Acute kidney injury on on admission with creatinine of 2.12 (baseline creatinine of 0.97) -patient has been adequately fluid-resuscitated -developed pulmonary edema -albumin was further used to and intravascular volume expansion -urine output has been good -creatinine trending down -CT scan of the abdomen pelvis showed a 3 mm nonobstructing right renal stone, 6 cm left renal cyst with an area of a padded focal mural nodularity measuring 1.3 cm, no hydronephrosis was seen -urine lytes have been ordered -CK levels were elevated -nephrology has been consulted Plan DVT prophylaxis: Lovenox SQ Stress ulcer prophylaxis: Protonix Nutrition: Clear liquid diet Code Status: Full code Subjective Date/time seen: 12/24/24 12:56 Interval history: Comfortable at bedside Awaiting transfer to [facility] for higher level of care Review of Systems Review of Systems: All other systems reviewed and negative except as noted in history above. All systems reviewed & are unremarkable except as noted in HPI and below Exam Narrative: General: Pleasant gentleman, in no acute distress HEENT:? Pupils equal and reactive, sclera is clear Neck:? Supple Respiratory:? Coarse breath sounds bilateral bases, no rales, no wheezing, adequate air entry Cardiac:? S1-S2 is normal, Tachycardic, regular rhythm Abdomen:? Soft, hypoactive bowel sounds, Distended abdomen, generalized tenderness with palpation Extremities:? Lower extremities are warm, no edema, palpable pedal pulses Neuro:? Alert and Oriented Skin:? Warm, dry, and intact. Few scattered, raised papules on Lt lower pannus with no surrounding erythema, fluctuance, or purulent drainage Psych: Normal affect Objective Data Vital Signs Vital Signs: Vital Signs - 24 hr 12/23/24 13:00 12/23/24 13:12 12/23/24 13:14 Temperature Pulse Rate 118 H 117 H Respiratory Rate 19 18 20 Blood Pressure Pulse Oximetry 97 94 Oxygen Delivery High Flow Therapy with Na High Flow Therapy with Na Oxygen Flow Rate 45 45 Fraction of Inspired Oxygen 30 35 12/23/24 13:38 12/23/24 13:53 12/23/24 13:54 Temperature 100.4 F H Pulse Rate 119 H Respiratory Rate 19 Blood Pressure 122/71 Pulse Oximetry 94 96 96 Oxygen Delivery High Flow Nasal Cannula High Flow Nasal Cannula Oxygen Flow Rate 6 4 Fraction of Inspired Oxygen 12/23/24 14:00 12/23/24 14:00 12/23/24 14:18 Temperature 100.6 F H 100.6 F H Pulse Rate 121 H 120 H Respiratory Rate 22 H Blood Pressure 129/71 Pulse Oximetry 96 Oxygen Delivery Oxygen Flow Rate Fraction of Inspired Oxygen 12/23/24 15:18 12/23/24 15:40 12/23/24 16:00 Temperature 100.6 F H 100.4 F H 100.3 F H Pulse Rate 117 H 117 H Respiratory Rate 25 H 18 Blood Pressure 133/84 Pulse Oximetry 93 93 Oxygen Delivery Oxygen Flow Rate Fraction of Inspired Oxygen 12/23/24 16:00 12/23/24 16:00 12/23/24 18:00 Temperature Pulse Rate 117 H 129 H Respiratory Rate 18 Blood Pressure Pulse Oximetry 93 Oxygen Delivery High Flow Nasal Cannula Oxygen Flow Rate 6 Fraction of Inspired Oxygen 12/23/24 18:00 12/23/24 19:45 12/23/24 19:46 Temperature 100.5 F H Pulse Rate 130 H 121 H 120 H Respiratory Rate 24 H 18 Blood Pressure 115/91 H Pulse Oximetry 94 97 Oxygen Delivery High Flow Nasal Cannula Oxygen Flow Rate 6 Fraction of Inspired Oxygen 12/23/24 20:00 12/23/24 20:00 12/23/24 20:00 Temperature 100.7 F H Pulse Rate 135 H 135 H Respiratory Rate 12 Blood Pressure 116/87 Pulse Oximetry 99 99 Oxygen Delivery High Flow Nasal Cannula Oxygen Flow Rate 5 Fraction of Inspired Oxygen 12/23/24 20:01 12/23/24 22:00 12/23/24 22:00 Temperature 99.9 F H Pulse Rate 134 H 126 H 126 H Respiratory Rate 15 16 Blood Pressure 125/104 H Pulse Oximetry 98 Oxygen Delivery Oxygen Flow Rate Fraction of Inspired Oxygen 12/23/24 23:15 12/24/24 00:00 12/24/24 00:00 Temperature Pulse Rate 124 H 123 H Respiratory Rate 18 Blood Pressure Pulse Oximetry 96 92 Oxygen Delivery BiPAP High Flow Nasal Cannula Oxygen Flow Rate 4 Fraction of Inspired Oxygen 12/24/24 00:00 12/24/24 02:00 12/24/24 02:00 Temperature 100.2 F H 100.5 F H Pulse Rate 123 H 122 H 122 H Respiratory Rate 18 20 Blood Pressure 119/81 134/90 Pulse Oximetry 92 100 Oxygen Delivery Oxygen Flow Rate Fraction of Inspired Oxygen 12/24/24 02:02 12/24/24 02:20 12/24/24 03:15 Temperature Pulse Rate 130 H 128 H 126 H Respiratory Rate 20 19 20 Blood Pressure Pulse Oximetry 96 Oxygen Delivery BiPAP Oxygen Flow Rate Fraction of Inspired Oxygen 12/24/24 04:00 12/24/24 04:00 12/24/24 04:00 Temperature 100.3 F H Pulse Rate 121 H 121 H Respiratory Rate 22 H Blood Pressure 130/88 Pulse Oximetry 89 L 89 L Oxygen Delivery High Flow Nasal Cannula Oxygen Flow Rate 5 Fraction of Inspired Oxygen 12/24/24 06:00 12/24/24 06:00 12/24/24 08:00 Temperature 100.2 F H 100.2 F H Pulse Rate 122 H 122 H 126 H Respiratory Rate 16 25 H Blood Pressure 126/84 115/86 Pulse Oximetry 92 92 Oxygen Delivery Oxygen Flow Rate Fraction of Inspired Oxygen 12/24/24 08:00 12/24/24 08:00 12/24/24 08:37 Temperature Pulse Rate 127 H 120 H Respiratory Rate 18 Blood Pressure Pulse Oximetry 92 Oxygen Delivery High Flow Nasal Cannula Oxygen Flow Rate 5 Fraction of Inspired Oxygen 12/24/24 08:39 12/24/24 08:46 12/24/24 08:59 Temperature 100.3 F H Pulse Rate 120 H 120 H Respiratory Rate 18 18 Blood Pressure Pulse Oximetry 97 Oxygen Delivery High Flow Nasal Cannula Oxygen Flow Rate 5 Fraction of Inspired Oxygen 12/24/24 09:38 12/24/24 10:00 12/24/24 10:00 Temperature 100.6 F H 100.5 F H Pulse Rate 124 H 125 H Respiratory Rate 18 Blood Pressure 114/82 Pulse Oximetry 92 Oxygen Delivery Oxygen Flow Rate Fraction of Inspired Oxygen 12/24/24 12:00 Temperature 99.9 F H Pulse Rate 117 H Respiratory Rate 21 H Blood Pressure 109/79 Pulse Oximetry 93 Oxygen Delivery Oxygen Flow Rate Fraction of Inspired Oxygen Intake/Output Intake/Output: Intake & Output 12/21/24 12/22/24 12/23/24 12/24/24 23:59 23:59 23:59 23:59 Intake Total 3100 2973.0 3340 1450 Output Total 650 1000 1700 1150 Balance 2450 1973.0 1640 300 Meds/Results Medications: Active Medications Generic Name Dose Route Start Last Admin Trade Name Freq PRN Reason Stop Dose Admin Acetaminophen 650 mg 12/23/24 08:17 12/24/24 07:59 Acetaminophen Elixir 325 Mg/10.15 Ml Udc PO 650 mg Q6H PRN Administration Mild Pain (1-3) or Fever Hydrocodone Bitart/Acetaminophen 1 tab 12/23/24 18:04 12/24/24 10:16 Hydrocodone/Acetaminophen (*Crx) 5-325 Mg Tablet PO 1 tab Q6H PRN Administration Pain Rated 4-6 Dextrose 12.5 gm 12/21/24 16:02 Dextrose 50% 25 Gm/50 Ml Syringe IV PUSH PRN PRN Hypoglycemia Protocol Enoxaparin Sodium 40 mg 12/22/24 09:00 12/24/24 08:00 Enoxaparin 40 Mg/0.4 Ml Syringe SUB-Q 40 mg DAILY LUIS Administration Glucagon 1 mg 12/21/24 16:02 Glucagon For Inj 1 Mg Vial IM PRN PRN Hypoglycemia Protocol Glucose 15 gm 12/21/24 16:02 Glucose Oral Gel 15 Gm Of Glucse In 37.5 Gm Tube PO PRN PRN Hypoglycemia Protocol Hydromorphone HCl 0.5 mg 12/21/24 04:20 12/24/24 12:19 Hydromorphone Hcl Inj (*Crx) 2 Mg/Ml Vial IV PUSH 0.5 mg Q2H PRN Administration Breakthrough Pain Dextrose 1,000 mls @ 100 mls/hr 12/21/24 16:02 Dextrose 5% 1,000 Ml IVPB PRN PRN Hypoglycemia Protocol Lactated Ringer's 1,000 mls @ 75 mls/hr 12/22/24 14:00 04/20/25 08:00 Lr - Lactated Ringers Iv IV CONT 75 mls/hr .[id number] LUIS Administration Vancomycin HCl 1,500 mg in 500 mls @ 250 mls/hr 12/24/24 08:00 12/24/24 07:28 Vancomycin 1,500 Mg/Ns 500 Ml IVPB 250 mls/hr Q24H LUIS Administration Aztreonam 2 gm in 100 mls @ 200 mls/hr 12/24/24 10:00 12/24/24 11:45 Azactam 2 Gm/Ns 100 Ml IVPB Infused Q8H LUIS Infusion Insulin Aspart 2 - 5 units 12/21/24 17:00 12/24/24 11:44 Insulin Aspart (*Bkc) 100 Units/Ml SUB-Q Not Given TIDWM [facility] Protocol Ipratropium [place] 0.5 mg 12/22/24 14:50 12/24/24 02:02 Ipratropium Br 0.02% Inh Soln 0.5 Mg/2.5 Ml Vial INHALATION 0.5 mg Q6HRT LUIS Administration Levalbuterol HCl 0.63 mg 12/22/24 14:50 12/24/24 08:33 Levalbuterol Neb 1.25 Mg/3 Ml INHALATION 0.63 mg Q6HRT LUIS Administration Ondansetron HCl 4 mg 12/23/24 18:18 12/24/24 04:05 Ondansetron Inj 4 Mg/2 Ml Vial IV PUSH 4 mg Q4H PRN Administration Nausea And Vomiting Pantoprazole Sodium 40 mg 12/23/24 09:00 12/24/24 08:00 Pantoprazole Sodium Iv 40 Mg Vial IV PUSH 40 mg QAM LUIS Administration Polyethylene Glycol 17 gm 12/23/24 10:10 12/24/24 08:00 Polyethylene Glycol 3350 17 Gm Powd.Pack PO 17 gm QAM LUIS Administration Fluticasone/Salmeterol 2 puff 12/22/24 08:00 12/24/24 08:33 Fluticasone/Salmeterol 115-21 Mcg Inhaler 1 Puff INHALATION 2 puff Q12HRT LUIS Administration Senna/Docusate Sodium 1 tab 12/23/24 10:10 12/24/24 08:00 Senna/Docusate Sodium Tablet PO 1 tab Q12HR LUIS Administration Radiology Results: ITS Impressions Abdomen/Pelvis CT 12/21/24 06:41 Impression: Findings compatible with acute pancreatitis, as detailed above. Extensive apparent soft tissue thickening or inflammatory change surrounding the SMV and main portal vein in particular. Superimposed/associated vasculitis is a consideration. No pseudoaneurysm/aneurysm identified on this exam. Small right pleural effusion and minimal left pleural effusion with mild bibasilar pulmonary edema/atelectasis. Gallbladder wall thickening is likely reactive. 6 cm left renal cyst with 1.3 cm area of mural nodularity. Neoplastic lesion is not excluded. Pre and postcontrast renal MR advised to best assess for enhancing soft tissue lesion. Chest CT 12/21/24 11:14 IMPRESSION: Large right-sided pleural effusion with adjacent consolidation. Small left-sided pleural effusion with adjacent atelectasis. Additional findings consistent with severe hypovolemia. Upper Quadrant Ultrasound 12/21/24 12:24 IMPRESSION: Gallbladder distention with intra-abdominal fluid, related to patient's acute pancreatitis, rather than designated gallbladder disease. Requested evaluation of the superior mesenteric artery is also patent, as detailed above. Thoracentesis Ultrasound 12/21/24 18:20 IMPRESSION: 1. Successful ultrasound-guided thoracentesis yielding 650 mL of dark [id number] fluid. Chest X-Ray 12/24/24 05:44 Impression: 1: Mild interstitial edema with bilateral pleural effusions, right greater than left. Chest/Abdomen/Pelvis CT 12/24/24 09:52 IMPRESSION: 1. Significant progression of pancreatitis with developing fluid in the mesentery as well as along the margin of the liver and stomach. Cannot exclude underlying abscess or pancreatic necrosis without contrast administration. 2: Patchy groundglass opacities in the lungs, consistent with pneumonia. Moderate pleural effusions with underlying compressive atelectasis. 3: Dilated small bowel with air-fluid levels which may represent obstruction or ileus. Labs Labs: Laboratory Results - last 24 hr 12/23/24 12/23/24 12/24/24 16:11 21:47 04:11 WBC 11.1 H RBC 3.55 L Hgb 10.5 L Hct 32.3 L MCV 91.0 MCH 29.6 MCHC 32.5 RDW 13.6 Plt Count 165 MPV 10.0 Immature Gran % (Auto) 0.5 Neut % (Auto) 86.0 H Lymph % (Auto) 4.2 L [place] % (Auto) 8.5 Eos % (Auto) 0.3 Baso % (Auto) 0.5 Lymph # (Auto) 0.47 L [place] # (Auto) 0.9 H Eos # (Auto) 0.0 Baso # (Auto) 0.1 Abs Immat Gran (auto) 0.05 H Absolute Neuts (auto) 9.5 H Absolute Nucleated RBC 0.000 Nucleated RBC % 0.0 PT 19.0 H INR 1.6 APTT 28.9 Sodium 143 Potassium 3.7 Chloride 108 H Carbon Dioxide 27 Anion Gap 8 BUN 55 H Creatinine 1.42 H Estim Creat Clear Calc 55 Estimated GFR 51 L Glucose 150 H POC Capillary Glucose 173 H 161 H Lactic Acid 1.2 Calcium 5.7 L* Magnesium 1.9 Total Bilirubin 1.9 H AST 83 H ALT 47 Alkaline Phosphatase 21 L Total Creatine Kinase 2110 H C-Reactive Protein 32.5 H Total Protein 6.0 L Albumin 3.8 Lipase 510 H TSH 0.846 Urine Eosinophils Ur Random Sodium Ur Random Potassium Urine Creatinine Random Vancomycin < 5.0 L 12/24/24 12/24/24 12/24/24 07:56 08:14 11:24 WBC RBC Hgb Hct MCV MCH MCHC RDW Plt Count MPV Immature Gran % (Auto) Neut % (Auto) Lymph % (Auto) [place] % (Auto) Eos % (Auto) Baso % (Auto) Lymph # (Auto) [place] # (Auto) Eos # (Auto) Baso # (Auto) Abs Immat Gran (auto) Absolute Neuts (auto) Absolute Nucleated RBC Nucleated RBC % PT INR APTT Sodium Potassium Chloride Carbon Dioxide Anion Gap BUN Creatinine Estim Creat Clear Calc Estimated GFR Glucose POC Capillary Glucose 167 H 164 H Lactic Acid Calcium Magnesium Total Bilirubin AST ALT Alkaline Phosphatase Total Creatine Kinase 2342 H C-Reactive Protein Total Protein Albumin Lipase TSH Urine Eosinophils None seen Ur Random Sodium < 5 Ur Random Potassium 32.2 Urine Creatinine Cancelled Random Vancomycin Quality VTE Prophylaxis VTE prophylaxis: pharmacologic ordered
--- NOTE | 2024-12-24 14:14 | P.PNGI_ITS ---
Progress Note: A&P Assessment and Plan (1) Acute pancreatitis: Code(s): K85.90 - Acute pancreatitis without necrosis or infection, unspecified Status: Acute Assessment and Plan: severe pancreatitis on admission, he was moved to ICU and CT scan worsening findings, can not rule out abscess or pancreatic necrosis still unable to eat, possible ileus agree to transfer to tertiary center, ambulance team already here to take him SIRS criteria, managed in ICU (2) Transaminitis: Code(s): R74.01 - Elevation of levels of liver transaminase levels Status: Acute Assessment and Plan: from pancreatitis continue to monitor (3) Nausea & vomiting: Code(s): R11.2 - Nausea with vomiting, unspecified Status: Acute (4) Abdominal pain: Code(s): R10.9 - Unspecified abdominal pain Status: Acute Assessment and Plan: similar (5) Leukocytosis: Code(s): D72.829 - Elevated white blood cell count, unspecified Status: Acute Assessment and Plan: from pancreatitis (6) SIRS (systemic inflammatory response syndrome): Code(s): R65.10 - Systemic inflammatory response syndrome (SIRS) of non-infectious origin without acute organ dysfunction Status: Acute (7) ARABELLA (acute kidney injury): Code(s): N17.9 - Acute kidney failure, unspecified Status: Acute Subjective Date/time seen: 12/24/24 14:14 Interval history: similar pain, nausea and could not tolerate diet, finally CT scan was ordered and showed more fluid collection, can not rule out abscess international tax manager discussed case with GI at [facility] and he is being transferred right now Review of Systems Review of Systems: All systems reviewed & are unremarkable except as noted in HPI and below Exam Narrative: General: Pleasant gentleman, in no acute distress HEENT:? Pupils equal and reactive, sclera is clear Neck:? Supple Respiratory:? Coarse breath sounds bilateral bases, no rales, no wheezing, adequate air entry Cardiac:? S1-S2 is normal, Tachycardic, regular rhythm Abdomen:? Soft, hypoactive bowel sounds, Distended abdomen, generalized tenderness with palpation Extremities:? Lower extremities are warm, no edema, palpable pedal pulses Neuro:? Alert and Oriented Skin:? Warm, dry, and intact. Few scattered, raised papules on Lt lower pannus with no surrounding erythema, fluctuance, or purulent drainage Psych: Normal affect Objective Data Vital Signs Vital Signs: Vital Signs - 24 hr 12/23/24 14:18 12/23/24 15:18 12/23/24 15:40 Temperature 100.6 F H 100.6 F H 100.4 F H Pulse Rate 117 H Respiratory Rate 25 H Blood Pressure Pulse Oximetry 93 Oxygen Delivery Oxygen Flow Rate 12/23/24 16:00 12/23/24 16:00 12/23/24 16:00 Temperature 100.3 F H Pulse Rate 117 H 117 H Respiratory Rate 18 18 Blood Pressure 133/84 Pulse Oximetry 93 93 Oxygen Delivery High Flow Nasal Cannula Oxygen Flow Rate 6 12/23/24 18:00 12/23/24 18:00 12/23/24 19:45 Temperature 100.5 F H Pulse Rate 129 H 130 H 121 H Respiratory Rate 24 H 18 Blood Pressure 115/91 H Pulse Oximetry 94 Oxygen Delivery Oxygen Flow Rate 12/23/24 19:46 12/23/24 20:00 12/23/24 20:00 Temperature Pulse Rate 120 H 135 H Respiratory Rate Blood Pressure Pulse Oximetry 97 99 Oxygen Delivery High Flow Nasal Cannula High Flow Nasal Cannula Oxygen Flow Rate 6 5 12/23/24 20:00 12/23/24 20:01 12/23/24 22:00 Temperature 100.7 F H Pulse Rate 135 H 134 H 126 H Respiratory Rate 12 15 Blood Pressure 116/87 Pulse Oximetry 99 Oxygen Delivery Oxygen Flow Rate 12/23/24 22:00 12/23/24 23:15 12/24/24 00:00 Temperature 99.9 F H Pulse Rate 126 H 124 H Respiratory Rate 16 18 Blood Pressure 125/104 H Pulse Oximetry 98 96 92 Oxygen Delivery BiPAP High Flow Nasal Cannula Oxygen Flow Rate 4 12/24/24 00:00 12/24/24 00:00 12/24/24 02:00 Temperature 100.2 F H Pulse Rate 123 H 123 H 122 H Respiratory Rate 18 Blood Pressure 119/81 Pulse Oximetry 92 Oxygen Delivery Oxygen Flow Rate 12/24/24 02:00 12/24/24 02:02 12/24/24 02:20 Temperature 100.5 F H Pulse Rate 122 H 130 H 128 H Respiratory Rate 20 20 19 Blood Pressure 134/90 Pulse Oximetry 100 Oxygen Delivery Oxygen Flow Rate 12/24/24 03:15 12/24/24 04:00 12/24/24 04:00 Temperature 100.3 F H Pulse Rate 126 H 121 H Respiratory Rate 20 22 H Blood Pressure 130/88 Pulse Oximetry 96 89 L 89 L Oxygen Delivery BiPAP High Flow Nasal Cannula Oxygen Flow Rate 5 12/24/24 04:00 12/24/24 06:00 12/24/24 06:00 Temperature 100.2 F H Pulse Rate 121 H 122 H 122 H Respiratory Rate 16 Blood Pressure 126/84 Pulse Oximetry 92 Oxygen Delivery Oxygen Flow Rate 12/24/24 08:00 12/24/24 08:00 12/24/24 08:00 Temperature 100.2 F H Pulse Rate 126 H 127 H Respiratory Rate 25 H Blood Pressure 115/86 Pulse Oximetry 92 92 Oxygen Delivery High Flow Nasal Cannula Oxygen Flow Rate 5 12/24/24 08:37 12/24/24 08:39 12/24/24 08:46 Temperature Pulse Rate 120 H 120 H 120 H Respiratory Rate 18 18 18 Blood Pressure Pulse Oximetry 97 Oxygen Delivery High Flow Nasal Cannula Oxygen Flow Rate 5 12/24/24 08:59 12/24/24 09:38 12/24/24 10:00 Temperature 100.3 F H 100.6 F H Pulse Rate 124 H Respiratory Rate Blood Pressure Pulse Oximetry Oxygen Delivery Oxygen Flow Rate 12/24/24 10:00 12/24/24 12:00 12/24/24 12:00 Temperature 100.5 F H 99.9 F H Pulse Rate 125 H 117 H Respiratory Rate 18 21 H Blood Pressure 114/82 109/79 Pulse Oximetry 92 93 93 Oxygen Delivery High Flow Nasal Cannula Oxygen Flow Rate 5 12/24/24 12:00 12/24/24 13:48 Temperature 99.9 F H Pulse Rate 119 H 119 H Respiratory Rate 30 H Blood Pressure 109/79 Pulse Oximetry 93 Oxygen Delivery Oxygen Flow Rate Intake/Output Intake/Output: Intake & Output 12/21/24 12/22/24 12/23/24 12/24/24 23:59 23:59 23:59 23:59 Intake Total 3100 2973.0 3340 1570 Output Total 650 1000 1700 1450 Balance 2450 1973.0 1640 120 Meds/Results Radiology Results: ITS Impressions Abdomen/Pelvis CT 12/21/24 06:41 Impression: Findings compatible with acute pancreatitis, as detailed above. Extensive apparent soft tissue thickening or inflammatory change surrounding the SMV and main portal vein in particular. Superimposed/associated vasculitis is a consideration. No pseudoaneurysm/aneurysm identified on this exam. Small right pleural effusion and minimal left pleural effusion with mild bibasilar pulmonary edema/atelectasis. Gallbladder wall thickening is likely reactive. 6 cm left renal cyst with 1.3 cm area of mural nodularity. Neoplastic lesion is not excluded. Pre and postcontrast renal MR advised to best assess for enhancing soft tissue lesion. Chest CT 12/21/24 11:14 IMPRESSION: Large right-sided pleural effusion with adjacent consolidation. Small left-sided pleural effusion with adjacent atelectasis. Additional findings consistent with severe hypovolemia. Upper Quadrant Ultrasound 12/21/24 12:24 IMPRESSION: Gallbladder distention with intra-abdominal fluid, related to patient's acute pancreatitis, rather than designated gallbladder disease. Requested evaluation of the superior mesenteric artery is also patent, as detailed above. Thoracentesis Ultrasound 12/21/24 18:20 IMPRESSION: 1. Successful ultrasound-guided thoracentesis yielding 650 mL of dark [id number]-qghiclc fluid. Chest X-Ray 12/24/24 05:44 Impression: 1: Mild interstitial edema with bilateral pleural effusions, right greater than left. Chest/Abdomen/Pelvis CT 12/24/24 09:52 IMPRESSION: 1. Significant progression of pancreatitis with developing fluid in the mesentery as well as along the margin of the liver and stomach. Cannot exclude underlying abscess or pancreatic necrosis without contrast administration. 2: Patchy groundglass opacities in the lungs, consistent with pneumonia. Moderate pleural effusions with underlying compressive atelectasis. 3: Dilated small bowel with air-fluid levels which may represent obstruction or ileus. Labs Labs: Laboratory Results - last 24 hr 12/23/24 12/23/24 12/24/24 16:11 21:47 04:11 WBC 11.1 H RBC 3.55 L Hgb 10.5 L Hct 32.3 L MCV 91.0 MCH 29.6 MCHC 32.5 RDW 13.6 Plt Count 165 MPV 10.0 Immature Gran % (Auto) 0.5 Neut % (Auto) 86.0 H Lymph % (Auto) 4.2 L Clare % (Auto) 8.5 Eos % (Auto) 0.3 Baso % (Auto) 0.5 Lymph # (Auto) 0.47 L Clare # (Auto) 0.9 H Eos # (Auto) 0.0 Baso # (Auto) 0.1 Abs Immat Gran (auto) 0.05 H Absolute Neuts (auto) 9.5 H Absolute Nucleated RBC 0.000 Nucleated RBC % 0.0 PT 19.0 H INR 1.6 APTT 28.9 Sodium 143 Potassium 3.7 Chloride 108 H Carbon Dioxide 27 Anion Gap 8 BUN 55 H Creatinine 1.42 H Estim Creat Clear Calc 55 Estimated GFR 51 L Glucose 150 H POC Capillary Glucose 173 H 161 H Lactic Acid 1.2 Calcium 5.7 L* Magnesium 1.9 Total Bilirubin 1.9 H AST 83 H ALT 47 Alkaline Phosphatase 21 L Total Creatine Kinase 2110 H C-Reactive Protein 32.5 H Total Protein 6.0 L Albumin 3.8 Lipase 510 H TSH 0.846 Urine Eosinophils Ur Random Sodium Ur Random Potassium Urine Creatinine Random Vancomycin < 5.0 L 12/24/24 12/24/24 12/24/24 07:56 08:14 11:24 WBC RBC Hgb Hct MCV MCH MCHC RDW Plt Count MPV Immature Gran % (Auto) Neut % (Auto) Lymph % (Auto) Clare % (Auto) Eos % (Auto) Baso % (Auto) Lymph # (Auto) Clare # (Auto) Eos # (Auto) Baso # (Auto) Abs Immat Gran (auto) Absolute Neuts (auto) Absolute Nucleated RBC Nucleated RBC % PT INR APTT Sodium Potassium Chloride Carbon Dioxide Anion Gap BUN Creatinine Estim Creat Clear Calc Estimated GFR Glucose POC Capillary Glucose 167 H 164 H Lactic Acid Calcium Magnesium Total Bilirubin AST ALT Alkaline Phosphatase Total Creatine Kinase 2342 H C-Reactive Protein Total Protein Albumin Lipase TSH Urine Eosinophils None seen Ur Random Sodium < 5 Ur Random Potassium 32.2 Urine Creatinine Cancelled Random Vancomycin
[2024-12-25 15:14] LABS: Myeloperoxidase Ab <1.0 AI
--- NOTE | 2024-12-25 16:46 | P.TS_ITS ---
Transfer Discharge Sum: Prov Provider Date of admission: 12/21/24 04:20 Primary care physician: Charlotte Mueller, PA-C Admitting clinician: Bruna Eugene DO Consults: 12/21/24 Consult to Physician Routine Comment: Spoke to @1015 12/21 [facility] [place] Consulting Provider: Sung Abdi call center manager/MD group to consult: GI Reason for consultation: ?Biliary pancreatitis with portal and SM vein inflammation Has provider been notified: Yes 12/24/24 07:15 Consult to Physician Routine Comment: Consulting Provider: Cristino Swanson call center manager/MD group to consult: Nephrology Reason for consultation: ARABELLA, Rhabdomyolysis Has provider been notified: Yes DS: Admitting Diagnosis Discharge Date 12/24/24 Admitting Diagnosis abdomen and chest pain. DS: Discharge Diagnosis Discharge Diagnosis (1) ARABELLA (acute kidney injury): Code(s): N17.9 - Acute kidney failure, unspecified Status: Acute (2) Sepsis: Code(s): A41.9 - Sepsis, unspecified organism Status: Acute Transfer Discharge Sum: Med Medications Active and Home Medications: Home Medications albuterol sulfate 90 mcg/actuation aerosol inhaler 2 puff inhalation Q4H PRN shortness of breath or wheezing 12/21/24 [History Confirmed 12/21/24] budesonide-formoterol HFA 160 mcg-4.5 mcg/actuation aerosol inhaler 2 puff inhalation Q12H PRN SOB 12/21/24 [History Confirmed 12/21/24] citalopram 10 mg tablet 10 mg PO DAILY 12/21/24 [History Confirmed 12/21/24] lisinopril 40 mg tablet 40 mg PO DAILY 12/21/24 [History Confirmed 12/21/24] pravastatin 40 mg tablet 40 mg PO HS 12/21/24 [History Confirmed 12/21/24] Transfer Discharge Sum: Hosp Hospital Course Hospital course: Ross Persaud II is a 63-year-old male past medical history of asthma hypertension subarachnoid hemorrhage presented to the ER on account of abdominal pain. Patient reported he was in his usual state of health until about 8:30 p.m. last night when he started having sudden onset abdominal pain described as sharp 9/10 X intensity associated with vomiting, and lightheadedness. Noted a right-sided chest pain and shortness of breath. Otherwise denies any loss of consciousness, no diarrhea, no dysuria no focal symptoms. ER evaluation notable for vital signs stable and normal limits, WBC 21, creatinine 0.97, glucose 218, AST 512, ALT 493, lipase 25081. CT abdomen showed findings compatible with acute pancreatitis, extensive soft tissue thickening and inflammatory change surrounding SMV and main portal vein a. Superimpose vasculitis is a consideration. 6 cm left renal mass noted. Patient was managed for acute pancreatitis, with elevated liver enzymes. Initially was put on supportive care for acute pancreatitis with NPO, IVF and PRN pain control. However patient went into sepsis and was transferred to the ICU. However in the ICU pain continued to worsen and repeat CT AP showed significant progression of pancreatitis with developing fluid in davon mesentery as well as along the margin of the stomach and liver. unable to exclude abscess or pancreatic necrosis. GI and intensivisit were involved in his care and patient ws transferred to higher level of care for worsening severe pancreatitis Also on admission, CT chest showed right sided pleural effusion for which thoracentesis was done and patient was started on Levaquin and Flagyl prior to his ICU transfer. MRSA was negative. Also managed for ARABELLA and hypocalcemia, rehydration, treatment for sepsis and IVF rehydration and calcium replacement were done. Eventually patient wsa transferred as noted above for higher level of care. F/u jeffryht recommendations of providers as the higher level facility Time Spent with Patient Time attestation: Total time spent providing and/or coordinating transfer services: DS: Data Data Completed and Pending Completed studies during hospitalization: Pending at discharge 12/21/24 15:50 Cytology [PTH] Routine Labs on day of discharge: Labs from last 24 hours 12/22/24 12/21/24 05:08 09:08 DHAVAL Screen Negative Anti-Proteinase 3 FEIA c/o 1.9 <1.0 Anti-Myeloperoxidase <1.0 Preliminary micro results at discharge 12/21/24 09:00 Blood Culture - Preliminary Blood 12/21/24 09:08 Blood Culture - Preliminary Blood Additional Comments Additional comments: stable on transfer
== END 2024-12-24 14:00 | disposition short-term general hospital (02) | DRG 202 ==
LOC: ANHED 03:59 → ANH3MEDSUR 04:43 → ANHICU 21:49
PROVIDERS: Internal Medicine; Internal Medicine Gastroenterology; Admitting Provider Internal Medicine; Emergency Provider Emergency Medicine; PCP Physician Assistant; Visit Provider Internal Medicine
DX: J45.909 Unspecified asthma, uncomplicated (principal); A41.9 Sepsis, unspecified organism; J18.9 Pneumonia, unspecified organism; R57.1 Hypovolemic shock; J96.01 Acute respiratory failure with hypoxia; J69.0 Pneumonitis due to inhalation of food and vomit; J90 Pleural effusion, not elsewhere classified; N17.9 Acute kidney failure, unspecified; I10 Essential (primary) hypertension; R74.01 Elevation of levels of liver transaminase levels; R73.9 Hyperglycemia, unspecified; E83.51 Hypocalcemia; Z80.0 Family history of malignant neoplasm of digestive organs
CPT/HCPCS: 32555; 36415; 36600; 71045; 71250; 74176; 74177; 76705; 80053; 80074; 80202; 81001; 82375; 82436; 82550; 82570; 82595; 82805; 82945; 82948; 83050; 83605; 83615; 83690; 83735; 83986; 84100; 84133; 84145; 84157; 84300; 84443; 84478; 84484; 85018; 85025; 85027; 85380; 85384; 85610; 85730; 85999; 86036; 86038; 86039; 86140; 86160; 87040; 87641; 88108; 88305; 89051; 93005; 94003; 94640; 94660; 96361; 96365; 96375; 99285; A9270; C1751; C8929; J0457; J0612; J0613; J1171; J1650; J1815; J1836; J1956; J2270; J2405; J2470; J3370; J7030; J7070; J7120; P9041; P9047; Q9957; Q9967